=== PATIENT | male | born 1960 | race Caucasian/White ===

== ENCOUNTER 2021-09-13 13:58 | Inpatient (IN) | payer MEDICARE, MEDICAID ==
[2021-09-13] VITALS (9 sets, daily range): BP systolic 95–133; BP diastolic 59–90
[~2021-09-13] VITALS: Ht 172.7 cm; Wt 84.2 kg
[2021-09-13] MEDS ORDERED: MAALOX 30 ML SUSP *UDC PO PRN (17:30)
[2021-09-13] MEDS ORDERED: MOM 30ML SUSPENSION UDC PO PRN (17:30)
[2021-09-13] MEDS ORDERED: NYSTATIN 100,000 UNITS/GM TOPICAL PWD 15 GM TOP PRN (17:35)
[2021-09-13] MEDS ORDERED: FUROSEMIDE 40MG/4ML VIAL (J1940) IV SCH (17:55)
[2021-09-13] MEDS ORDERED: METOPROLOL 5 MG/5 ML VIAL IV STA (17:59)
[2021-09-13] MEDS: METOPROLOL TART 50 MG TAB PO SCH (18:00)
[2021-09-13] MEDS ORDERED: NICOTINE 14 MG/24 HR TRANSDERMAL TD PRN (18:15)
--- NOTE | 2021-09-13 18:17 | REP ---
INDICATION: SOB COMPARISON: None. TECHNIQUE: Portable AP view of the chest FINDINGS: Mediastinum and cardiac silhouette are relatively normal for portable technique. Lung mendez demonstrate chronic appearing changes. No prior examinations are available for comparison. Superimposed lower lobe opacities (right greater than left) raise the possibility of acute infiltrate/atelectasis. No effusion. No pneumothorax. Skeletal structures intact. IMPRESSION: Cannot exclude basilar opacity/atelectasis. <Electronically signed by Chase Alexandre > 09/13/21 2006
--- NOTE | 2021-09-13 18:24 | HPEPDOC ---
[facility] Medical History & Physical Date of Admission Sep 13, 2021 Date of Service: Sep 13, 2021 History and Physical Chief complaint: Who is transferred from [facility] for A. fib and hyponatremia History of present illness: Patient is a 60-year-old male with a PMHx of Hx of TBI, A fib (on Coumadin), Systolic CHF (EF: 40-45%), COPD, Hx of Alcoholism, Nicotine dependence, Schizophrenia who presented to [facility] as a transfer from [facility]. Patient had originally presented to [facility] for worsening shortness of breath over the last 5 days. Patient had come in at the insistence of his neighbor. Patient had reported worsening shortness of breath, worse with exertion, associated with a productive cough. Patient reports that he is unable to expectorate much sputum.. He is also reported worsening lower extremity swelling. Patient does wake up several times at night short of breath. He denies sleeping upright. Patient has not experience any fevers or chills. Patient denies any nausea, vomiting, abdominal pain. He does report constipation. His last bowel movement was reported 3 days ago. Denies any urinary discomfort. Patient reports a poor appetite, but may have experienced some weight loss of about 20 pounds. While at the [facility], patient was noted to be in A. fib with RVR with rates of 185. His lab work that revealed leukocytosis. Severe hyponatremia of 114, potassium of 5.6, creatinine of 1.13, BNP of 20,794, Troponin negative, and negative COVID19 PCR. While at [facility], patient was given IV fluid hydration. They had contacted [facility] for further assistance; reached out to our Hospitalist and nephrology team. Patient was transferred to [facility] for further medical management. Past Medical History: Hx of TBI A fib (on Coumadin) Systolic CHF (EF: 40-45%) COPD Hx of Alcoholism Nicotine dependence Schizophrenia Past Surgical History: Hernia surgery Appendectomy Allergies: See below Medications: See below Family History: - Reviewed and noncontributory Social History: - Denies the use of illicit drugs; patient was that he quit the use of alcohol a while back; patient is an active smoker - Denies recent travel or sick contacts - Patient reports that he is unvaccinated for COVID19 - Lives alone - Occupation; currently on disability Review of Systems: 10 point review of systems complete, all negative otherwise stated in HPI Physical exam: - Vitals: BP [133/90], HR [155], RR [18], Sat [95%NC2L], Temp [96.5F] - General: Lying in bed, Speaking in full sentences, AAOx3 - HEENT: NC, AT, PERRLA - CVS: Tachycardic, IrIr, +S1S2 - Lungs: Fair air entry bilaterally, bilateral crackles can be appreciated at lower lung bases. No wheezing or rhonchi - Abdomen: Soft, Non-tender. Mildly distended - Extremities: 2+ pitting edema bilaterally, No calf tenderness - Neuro: No focal motor or sensory deficit - Skin: L skin fold around thigh and scrotum with erythema / intertrigo Labs: See below Imaging: CT chest at [facility] 09/13: CHF pattern CT abdomen / pelvis at [facility] 09/13: Mild ascites / possible cirrhosis EKG: See below Assessment and Plan: Acute hypoxic respiratory failure - likely 2/2 multifactorial etiology - likely 2/2 A. fib with RVR and Acute and Chronic Systolic CHF - See below Acute on Chronic Systolic CHF (EF: 40-45%) - Physical reveals evidence of gross fluid overload - Currently patient is on 2 L of nasal cannula oxygen - BNP was elevated at [facility] - Strict ins/outs, daily weights, fluid restriction - Will check ECHO / CXR - Will give single dose of Furosemide and assess urine output A. fib with RVR - Patient denies any chest pain or palpitations - EKG does reveal evidence of atrial fibrillation - Troponin first set at [facility], was negative - INR at [facility] was noted to be elevated / supra-therapeutic - Will check EKG / ECHO / Troponin trend - Will start Telemetry - Will give dose of Metoprolol IV and c/w Metoprolol 50 [id number] at this time - Will resume Coumadin (pending INR level) Hyponatremia - likely 2/2 hypotonic hypervolemic etiology - likely 2/2 CHF - Sodium noted to be 114, at [facility] - He did however receive fluids at [facility] - Repeat sodium level pending - Will check Urine and Serum Osmolality / Urine electrolytes / UA - Will trend BNP [id number] - See above - Nephrology has been consulted; appreciate their input Urinary tract infection - UA noted to be abnormal at [facility] - Leukocytosis at [facility] - Will repeat UA w/ reflex culture / CBC / Lactic acid - Will start Ceftriaxone COPD - No evidence of exacerbation - Will repeat CXR - Will start Xopinex inhaled therapy Hx of Alcoholism - Patient reports he quit drinking a while ago - Will start Thiamine / Folate / MVI Nicotine dependence - Advised smoking cessation - Will provide nicotine patch Hx of TBI Schizophrenia DVT prophylaxis - Will c/w Full anticoagulation with Coumadin (Awaiting repeat INR) Code status: - Full code Disposition: - Pending clinical improvement - Anticipate minimal of to midnight stay Vital Signs Vital Signs Date Time Temp Pulse Resp B/P (MAP) Pulse Ox O2 Delivery O2 Flow Rate FiO2 09/13/21 18:09 156 133/90 Laboratory Data Labs 24H Laboratory Tests 2 09/13/21 17:50: 09/13/21 18:03: Bedside Glucose (Misc Panel) 212H CBC/BMP Microbiology Microbiology 09/13/21 Blood Culture, Received Pending VENITA DE LEON MD Sep 13, 2021 18:24
[2021-09-13 18:53] LABS: INR 3.85
[2021-09-13 18:53] LABS: FREE T4 1.35 NG/DL (0.76-1.46); MAGNESIUM LEVEL 2.2 MG/DL (1.8-2.4); THYROID STIMULATING HORMONE 1.36 uIU/ML (0.358-3.740)
[2021-09-13] MEDS ORDERED: SITA50TAB PO (18:54)
[2021-09-13] MEDS ORDERED: BEVE1AER INH (18:54)
[2021-09-13] MEDS ORDERED: METF10004 PO (18:54)
[2021-09-13] MEDS ORDERED: FARX1TAB5 PO (18:54)
[2021-09-13] MEDS ORDERED: PROAAER10 INH (18:54)
[2021-09-13] MEDS ORDERED: TREL1AER INH (18:54)
[2021-09-13] MEDS ORDERED: BENA25CA4 PO (18:54)
[2021-09-13] MEDS ORDERED: LASI20TA3 PO (18:54)
[2021-09-13] MEDS ORDERED: ATOR40TA75 PO (18:54)
[2021-09-13] MEDS ORDERED: RAMI1CAP21 PO (18:54)
[2021-09-13] MEDS ORDERED: META0.52 PO (18:54)
[2021-09-13] MEDS ORDERED: BENZ2TAB5 PO (18:54)
[2021-09-13] MEDS ORDERED: D31000TA2 PO (18:54)
[2021-09-13] MEDS ORDERED: POTA10TA17 PO (18:54)
[2021-09-13] MEDS ORDERED: WARF-23 PO (18:54)
[2021-09-13] MEDS ORDERED: METO1TAB32 PO (18:54)
[2021-09-13] MEDS ORDERED: DILT1CAP9 PO (18:54)
[2021-09-13] MEDS ORDERED: COMBAER6 INH (18:54)
[2021-09-13] MEDS ORDERED: INVE156I IM (18:54)
[2021-09-13] MEDS ORDERED: COMMENTS (18:56)
[2021-09-13 18:57] LABS: OSMOLALITY URINE 659 MOSM/KG (50-1400)
[2021-09-13 18:59] LABS: CK-MB VALUE MASS 23.6 NG/ML (<3.6); MB/CK RELATIVE INDEX 3.56 (< OR =4)
[2021-09-13] MEDS ORDERED: HOME MED LIST COMPLETE! XX SCH (19:00)
[2021-09-13] MEDS: MULTIVITAMINS/MINERALS THERAP 1 TAB PO SCH (19:00)
[2021-09-13] MEDS: FOLIC ACID 1 MG TAB PO SCH (19:00)
[2021-09-13] MEDS ORDERED: FUROSEMIDE 40MG/4ML VIAL (J1940) IV ONE (19:00)
[2021-09-13] MEDS: THIAMINE 100 MG TAB PO SCH (19:00)
[2021-09-13 19:03] LABS: CHLORIDE,RANDOM URINE < 10 MEQ/L; POTASSIUM RANDOM URINE 48.2 MEQ/L; SODIUM,RANDOM URINE < 10 MEQ/L
[2021-09-13 19:03] LABS: ALBUMIN 3.4 GM/DL (3.2-5.2); ALT/SGPT 104 U/L (12-78); BILIRUBIN,TOTAL 1.6 MG/DL (0.2-1.0); BLOOD UREA NITROGEN 29 MG/DL (7-18); CALCIUM LEVEL 9.4 MG/DL (8.5-10.1); CARBON DIOXIDE LEVEL 27 MEQ/L (21-32); CHLORIDE LEVEL 82 MEQ/L (98-107); CREATININE FOR GFR 0.92 MG/DL (0.70-1.30); GLOMERULAR FILTRATION RATE > 60.0 (>56); GLUCOSE, FASTING 194 MG/DL (70-100); POTASSIUM SERUM 5.8 MEQ/L (3.5-5.1); SODIUM LEVEL 117 MEQ/L (136-145); TOTAL PROTEIN 6.7 GM/DL (6.4-8.2)
[2021-09-13 19:19] LABS: HEMATOCRIT 43.5 % (42.0-52.0); HEMOGLOBIN 14.5 g/dl (13.5-17.5); MEAN CORPUSCULAR HEMOGLOBIN 27.8 pg (27.0-33.0); MEAN CORPUSCULAR HGB CONC 33.3 g/dl (32.0-36.5); MEAN CORPUSCULAR VOLUME 83.5 fl (80.0-96.0); PLATELET COUNT, AUTOMATED 284 10^3/uL (150-450); RED BLOOD COUNT 5.21 10^6/uL (4.30-6.10); WHITE BLOOD COUNT 21.5 10^3/uL (4.0-10.0)
[2021-09-13] MEDS ORDERED: GLUCOSE 4GM CHEW TABLET PO PRN (19:25)
[2021-09-13] MEDS ORDERED: DEXTROSE 50% 50 ML SYRINGE IV PRN (19:25)
[2021-09-13] MEDS ORDERED: GLUCAGON INJ 1MG VIAL SC PRN (19:25)
[2021-09-13] MEDS ORDERED: DIGOXIN INJ 0.5 MG/2 ML AMP (J1160) IV STA (19:47)
[2021-09-13] MEDS: LEVALBUTEROL 1.25 MG/0.5 ML CONCENTRATE NEB INH SCH (19:58)
[2021-09-13] MEDS: ADVAIR HFA 230/21MCG INHALER INH SCH (19:58)
[2021-09-13] MEDS: METOPROLOL 5 MG/5 ML VIAL IV SCH ×3 (20:10→20:20)
[2021-09-13] MEDS: DOXYCYCLINE HYCLATE 100 MG in D5W MINI-BAG PLUS 100 ML IV SCH (21:06)
[2021-09-13] MEDS: HumaLOG INSULIN (NovoLOG) PER UNIT SC SCH (21:16)
[2021-09-13] MEDS: DOCUSATE SODIUM 100MG CAPSULE PO SCH (21:18)
[2021-09-13] MEDS: BENZTROPINE 2 MG TAB PO SCH (21:19)
[2021-09-14] VITALS (14 sets, daily range): BP systolic 99–136; BP diastolic 53–98
[2021-09-14] MEDS: METOPROLOL TART 50 MG TAB PO SCH ×4 (00:10→17:55)
[2021-09-14] MEDS ORDERED: DIGOXIN INJ 0.5 MG/2 ML AMP (J1160) IV ONE (03:00)
--- NOTE | 2021-09-14 06:11 | CR ---
CONSULTATION DATE: 09/13/2021 REASON FOR CONSULTATION: Hyponatremia. HISTORY OF PRESENT ILLNESS: Mr. Soriano is a 60-year-old gentleman who is transferred to [facility] from [facility]. He has known history of systolic congestive heart failure with ejection fraction of 40 to 45%, chronic obstructive pulmonary disease (COPD), history of alcoholism, nicotine dependence, history of schizophrenia and atrial fibrillation. He presented to [facility] today with shortness of breath and was found to have rapid atrial fibrillation. He was also noticed to have sodium level of 114 due to which he was transferred to [facility]. The case was discussed with the hospitalist on the phone and the patient is seen this evening in ICU. The patient apparently had cough and shortness of breath, but no hemoptysis, fevers or chills reported. PAST MEDICAL HISTORY: 1. History of chronic atrial fibrillation. 2. Systolic congestive heart failure. 3. Chronic obstructive pulmonary disease. 4. History of alcoholism. 5. History of schizophrenia. 6. History of nicotine dependence PAST SURGICAL HISTORY: Significant for appendectomy and hernia surgery. MEDICATIONS: His home medications include albuterol inhaler, atorvastatin, benztropine, vitamin D 1000 units daily, Farxiga 5 mg daily, diltiazem 360 mg daily, diphenhydramine 25 mg as needed for sleep, Trelegy one puff daily, furosemide 20 mg twice a day, metformin 1000 mg twice a day, Combivent inhaler three times a day, Invega Sustenna 156 mg intramuscular once a month, potassium chloride 10 mEq twice a day, ramipril 1.25 mg daily, Januvia 50 mg daily, coumadin 5 mg daily. ALLERGIES: No known drug allergies. PERSONAL AND SOCIAL HISTORY: The patient is a poor historian. He does have a history of alcohol use and no other recreational drugs. He has a history of chronic obstructive pulmonary disease (COPD). FAMILY HISTORY: Noncontributory. REVIEW OF SYSTEMS: No fever or chills reported. He has progressive shortness of breath for four to five days. Ears, nose and throat are unremarkable. He is a poor historian with difficulty to understand his speech. Cardiovascular is significant for atrial fibrillation. He had rapid ventricular rate on arrival to [facility]. He has been given a dose of digoxin and metoprolol and heart rate is now in the 90s. He denies any chest pain. Respiratory system significant for shortness of breath, which has worsened over the last four to five days. Gastrointestinal (GI) system negative for vomiting or diarrhea. Genitourinary () system is significant for urinary tract infection (UTI). He currently has a Wright catheter in place. Endocrine system is significant for type 2 diabetes and no history of thyroid problems. Hematological system significant for chronic anticoagulation due to atrial fibrillation. Musculoskeletal system is negative for any significant arthritis. He does have some leg edema. Psychosocial system is significant for schizophrenia. He has history of traumatic brain injury in the past. Skin is negative for rash or ulcers. PHYSICAL EXAMINATION: The patient is laying in the bed with the head elevated at about 60 degrees. Temperature 98 degrees Fahrenheit, heart rate was in the 150s, but now at the time of my visit his heart rate is in the 90s. Blood pressure is about 90/50 mmHg and oxygen saturation 96% on 2 liters oxygen. His head is atraumatic at present. Pupils equal and reactive to light and sclerae anicteric. Neck is supple and jugular venous distention (JVD) about 8 to 9 cm above the sternal angle. There is no thyroid enlargement. Heart sounds are irregular and lungs have diminished breath sounds and bilateral rales at lower 1/3. Abdomen soft and nontender and bowel sounds are normal. Extremities without any cyanosis or clubbing. He has edema on his legs. Neurologically, he is awake. Speech is not clear and difficult to understand. LABORATORY DATA: WBC count is 21.5, hemoglobin 14.5 and hematocrit 43.5. Platelets 284. INR was 3.85. Sodium was [address] [facility] and it is now 117 here. Potassium is 5.8, Co2 27, BUN 29 and creatinine 0.92, glucose 192 and calcium 9.4. Total bilirubin 1.6, AST 83, ALT 104, alkaline phosphatase 93. Total protein 6.7 and albumin 3.4. Urinalysis showed 2+ protein, 2+ glucose, 3+ blood and 3+ leukocyte esterase. Too numerous to count RBCs and 145 WBCs. Urine osmolarity is 659, urine sodium less than 10 and potassium 48. He had a chest x-ray done here at [facility], which showed some basilar opacities and atelectasis. No significant cardiomegaly noted. PROBLEMS: 1. Hyponatremia, most likely this is multifactorial. The patient has a history of alcohol use. He was also on a diuretic at home and clinically his volume is overloaded. His atrial fibrillation could also be contributing as he is in congestive heart failure. At present, he should be placed on fluid restriction of 1500 mL per day. One dose of Lasix 40 mg has already been given and I have recommended to hold off any further diuretic use through the night. 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 2. Hyperkalemia, most likely related to medications as he was taking potassium supplement and may have high potassium intake in his diet. At present, his potassium supplement has already been stopped and diuretic is being given due to congestive heart failure, which is likely to correct his hyperkalemia and no other intervention would be needed. 3. Congestive heart failure. The patient is clinically decompensated with elevated neck veins, peripheral edema and pulmonary rales. He will need to be diuresed; however, I recommend to gently diurese him due to risk for rapid correction of his hyponatremia. Will need to monitor his electrolytes closely. 4. Urinary tract infection (UTI). The patient is already being treated with ceftriaxone. He has also been given doxycycline in view of his history of cough. Thank you for involving me in the care of Mr. Soriano. I will follow him along with you.
[2021-09-14] MEDS: HumaLOG INSULIN (NovoLOG) PER UNIT SC SCH ×4 (07:30→20:48)
[2021-09-14 07:46] LABS: BASO % 0.1 % (0.0-1.0); HEMATOCRIT 41.4 % (42.0-52.0); HEMOGLOBIN 13.8 g/dl (13.5-17.5); LYMPH # 1.3 10^3/uL (1.5-5.0); LYMPH % 6.1 % (24.0-44.0); MEAN CORPUSCULAR HEMOGLOBIN 27.9 pg (27.0-33.0); MEAN CORPUSCULAR HGB CONC 33.3 g/dl (32.0-36.5); MEAN CORPUSCULAR VOLUME 83.6 fl (80.0-96.0); MONO # 1.3 10^3/uL (0.0-0.8); MONO % 5.8 % (2.0-8.0); NEUTROPHILS # 18.9 10^3/uL (1.5-8.5); NEUTROPHILS % 86.9 % (36.0-66.0); PLATELET COUNT, AUTOMATED 243 10^3/uL (150-450); RED BLOOD COUNT 4.95 10^6/uL (4.30-6.10); WHITE BLOOD COUNT 21.7 10^3/uL (4.0-10.0)
[2021-09-14] MEDS: LEVALBUTEROL 1.25 MG/0.5 ML CONCENTRATE NEB INH SCH ×4 (08:00→20:00)
[2021-09-14 08:12] LABS: ALBUMIN 3.2 GM/DL (3.2-5.2); ALT/SGPT 263 U/L (12-78); BILIRUBIN,TOTAL 1.5 MG/DL (0.2-1.0); BLOOD UREA NITROGEN 43 MG/DL (7-18); CALCIUM LEVEL 9.2 MG/DL (8.5-10.1); CARBON DIOXIDE LEVEL 23 MEQ/L (21-32); CHLORIDE LEVEL 80 MEQ/L (98-107); CREATININE FOR GFR 1.17 MG/DL (0.70-1.30); GLOMERULAR FILTRATION RATE > 60.0 (>56); GLUCOSE, FASTING 127 MG/DL (70-100); MAGNESIUM LEVEL 2.5 MG/DL (1.8-2.4); SODIUM LEVEL 114 MEQ/L (136-145); TOTAL PROTEIN 6.2 GM/DL (6.4-8.2)
[2021-09-14 08:13] LABS: POTASSIUM SERUM 6.1 MEQ/L (3.5-5.1)
[2021-09-14 08:18] LABS: CK-MB VALUE MASS 24.2 NG/ML (<3.6); MB/CK RELATIVE INDEX 2.73 (< OR =4)
[2021-09-14] MEDS: FOLIC ACID 1 MG TAB PO SCH (09:00)
[2021-09-14] MEDS: MULTIVITAMINS/MINERALS THERAP 1 TAB PO SCH (09:00)
[2021-09-14] MEDS: VITAMIN D 1,000 INTERNATIONAL UNITS TABLET PO SCH (09:00)
[2021-09-14] MEDS: THIAMINE 100 MG TAB PO SCH (09:00)
[2021-09-14] MEDS: DOCUSATE SODIUM 100MG CAPSULE PO SCH ×2 (09:00→20:35)
[2021-09-14] MEDS: BENZTROPINE 2 MG TAB PO SCH ×2 (09:00→20:35)
[2021-09-14] MEDS: ATORVASTATIN 20 MG TAB PO SCH (09:00)
[2021-09-14] MEDS ORDERED: FUROSEMIDE 100MG/10ML VIAL (J1940) IV ONE (09:30)
[2021-09-14] MEDS: ADVAIR HFA 230/21MCG INHALER INH SCH ×3 (09:56→20:00)
[2021-09-14] MEDS ORDERED: SOD POLYSTYRENE SULFONATE SUSP 15 GM/60 ML UD PO ONE (10:00)
[2021-09-14] MEDS ORDERED: SOD POLYSTYRENE SULFONATE SUSP 30 GM/120 ML ENEMA PR ONE (10:00)
[2021-09-14] MEDS: DOXYCYCLINE HYCLATE 100 MG in D5W MINI-BAG PLUS 100 ML IV SCH ×2 (10:06→21:56)
[2021-09-14 10:12] LABS: CORTISOL BASELINE 35.9 UG/DL (4.3-22.4)
[2021-09-14 10:13] LABS: TOTAL T3 44.7 NG/DL (60.0-181.0)
[2021-09-14 11:52] LABS: INR 3.08; PROTHROMBIN TIME 32.1 SECONDS (12.7-14.5)
[2021-09-14 12:09] LABS: ALBUMIN 3.1 GM/DL (3.2-5.2); BILIRUBIN,DIRECT 0.9 MG/DL (0.0-0.2); BILIRUBIN,TOTAL 1.4 MG/DL (0.2-1.0); TOTAL PROTEIN 5.8 GM/DL (6.4-8.2)
[2021-09-14 12:13] LABS: BLOOD UREA NITROGEN 46 MG/DL (7-18); CALCIUM LEVEL 9.1 MG/DL (8.5-10.1); CARBON DIOXIDE LEVEL 29 MEQ/L (21-32); CHLORIDE LEVEL 79 MEQ/L (98-107); CREATININE FOR GFR 1.15 MG/DL (0.70-1.30); GLOMERULAR FILTRATION RATE > 60.0 (>56); GLUCOSE, FASTING 134 MG/DL (70-100); SODIUM LEVEL 114 MEQ/L (136-145)
--- NOTE | 2021-09-14 12:24 | IPNPDOC ---
Text Note Date of Service The patient was seen on 09/14/21. NOTE Subjective HPI: Patient initially presented to [facility] with a 5 day hx of worsening SOB, upon the insistence of a neighbor. Patient had noted a worsening SOB on exertion w/ an associated productive cough but is unable to expectorate any appreciable amount of sputum. Patient had also noted LE swelling and that he often wakes up frequently during the night w/ SOB. Patient denies upright sleeping or chills/fever at initial px. At [facility], patient was noted to be in afib w/ RVR with rate of 185. Lab values showed leukocytosis, hyponatremia (severe at 114), hyperkalemia, and elevated BNP of 20,794 (recent baseline approximately 15,000). Patient was given IV fluid at [facility]. [facility] then contacted [facility] for higher level of care via hospitalist and nephrology teams and was subsequently transferred to [facility]. At time of exam 09/14/21, patient appeared to be in some state of AMS. He was arousable from sleep but non verbal and non responsive to questions, was unable to follow instructions physically as well. Due to this the subjective part of the exam was unable to be acquired, as even 2 hours after patient was seen again and mental orientation was unchanged. Sitters present in room reported that he has been like this since 7 AM and that he was coughing quite a bit. ROS: - Was unobtainable due to patients unresponsiveness. Objective: General appearance: Patient was lying comfortable in bed, very somnolent appears older than stated age, and was in no acute distress. HENT: NC/AT, EOMI, PERRLA, scleral icterus was present, mucous membranes are moist. Cardiac: Regular rate, irregular rythm, patient is still in afib. Heart sounds distant, no murmurs or gallops appreciated. Respiratory: CTAB with no rales, rhonchi., or wheezing. Difficult to accurately auscultate as patient wouldn't take deep breaths. Abdominal: Reducible umbilical hernia, soft, NT, mild distention. Extremities: 2+ pitting edema bilaterally, right leg ends at knee, left leg ends mid tibial. Imaging: #. 09/13 CXR: "IMPRESSION: Cannot exclude basilar opacity/atelectasis." Assessment: Jean-Paul Soriano is a 60 year old male with a notable HO afib, systolic CHF, Hx of alcoholism, nicotine use disorder, COPD, and Schizophrenia who presented to [facility] ED as a [place] [facility] transfer and was found to have afib w/RVR, severe hyponatremia, hyperkalemia, and leukocytosis concerning for acute hypoxic respiratory failure likely 2/2 afib w/RVR and CHF exacerbation. Plan: #. Acute on Chronic Systolic CHF - Clinical signs of fluid overload as noted above in exam section - 3LNC oxygen supplementation; baseline O2 requirements unable to be ascertained d/t pt's encephalopathy - BNP 18,581 on 09/13 - Placed on strict I&O's with fluid restriction and daily weights - Patient appears to be retaining fluid - Patient weight increased 2 kg since yesterday - CXR results as above, ECHO pending - Second dose of furosemide administered 09/14 80 mg with a (+) fluid balance #. Afib w/RVR, currently rate controlled - EKG shows afib evidence - negative troponin at [facility], HS Troponin 09/14 WNL -rate controlled s/p IV Dig x1; c/w 50 mg PO lopressor q6h - INR supratherapeutic at [facility] -repeat drawn upon admission remained supratherapeutic (3.5); subsequent repeat has been ordered -At this point, will hold home Coumadin for another day and reassess based on repeat INR result - ECHO pending, CXR as above, troponins trending - c/w tele #. Hypotonic hypervolemic hyponatremia, severe- likely dilutional 2/2 fluid overload due to CHF - Sodium remains at 114 09/14 - Repeat sodium levels - Urine + Serum Osmolality: 659 and 254 respectively , Urine electrolytes returned WNL, UA suggestive of UTI -Sarah < 10; possible etiologies cirrhosis vs HF - BNP ordered to trend q4 hours but was not done - Nephrology was consulted w/ Dr. Kilgore and their input is appreciated #. UTI - UA at [facility] suggestive of abnormality, [facility] - Patient still has leukocytosis in the 's - LA WNL - Repeat UA 09/13 suggests UTI - urine, and blood x2 cultures pending - Patient started on Ceftriaxone as well as Doxycycline for potential CAP #. Presumed CAP - Patient previously reported productive cough, confirmed today by sitters - Patient oxygen requirement increased, was saturating well at 2LNC yesterday and is now on 3LNC - CXR findings of atelectasis and bilateral opacities suggestive of pneumonia - c/w doxycycline #. Acute metabolic encephalopy, likely 2/2 to hyponatremia, possibly 2/2 infection - Patient mentation severely decreased compared to yesterday, largely unresponsive and non verbal - Noted yesterday to be talkative and was combative overnight - Has been severely hyponatremic since presentation to [facility] - Ammonia level ordered to r/o hepatic source - c/w diuresis to improve hyponatremia #. Transaminitis, likely 2/2 to hepatic congestion due to volume overload and cirrhotic parenchyma - Elevated AST and ALT compared to normal limits on presentation - Liver US suggestive of cirrhosis - Patient is currently in a state of volume overload - Hx of alcoholism - c/w diuresis #. COPD - No exacerbation evidence - repeat CXR suggestive of CAP - c/w Xopinex #. Hx of alcoholism - patient notes he quit some time back - c/w thiamin, folate and MVI #. Nicotine dependence - Smoking cessation advised #. Hx of TBI #. Schizophrenia DVT prophylaxis: c/w full anticoagulation w/ Coumadin onc INR returns below 3, currently 3.08 09/14 CODE STATUS: Full code Disposition: Pending clinical improvement and anticipate at least another midnight stay VS,Ama, I+O VSAma I+O Laboratory Tests 09/13/21 17:50 09/13/21 19:10 09/14/21 07:30 Vital Signs Date Time Temp Pulse Resp B/P (MAP) Pulse Ox O2 Delivery O2 Flow Rate FiO2 09/14/21 08:00 97.4 79 16 123/79 (94) 97 Nasal Cannula 2.0 I&O- Last 24 Hours up to 6 AM 09/14/21 05:59 Intake Total 1920 ml Output Total 1250 ml Balance 670 ml GME ATTESTATION GME ATTESTATION My faculty preceptor for this patient encounter was physically present during the encounter and was fully available. All aspects of the patient interview, examination, medical decision making process, and medical care plan development were reviewed and approved by the faculty preceptor. The faculty preceptor is aware and concurs with the plan as stated in the body of this note and will attest to such by his/her cosignature. ATTENDING NOTE I, Colby Shah, have independently examined this patient and performed my own physical exam, and verified the medical students physical exam. The document ation (including HPI and medical decision making) above has been verified and edited where necessary with the student. I have discussed in detail with the student the findings and plan of treatment as documented by the student and edited their note. I will continue to follow the patient during this hospital stay. VIV MARTÍNEZ OMS-3 Sep 14, 2021 12:24 COLBY SHAH MD Sep 14, 2021 15:27 JADEN SIMENTAL D.O. Sep 14, 2021 18:14
[2021-09-14] MEDS: cefTRIAXone SOD 1 GM in D5W MINI-BAG PLUS 50 ML IV SCH (14:22)
[2021-09-14] MEDS: SODIUM CHLORIDE 1 GM TAB PO SCH ×2 (14:23→20:34)
[2021-09-14 16:07] LABS: BLOOD UREA NITROGEN 48 MG/DL (7-18); CALCIUM LEVEL 8.7 MG/DL (8.5-10.1); CARBON DIOXIDE LEVEL 30 MEQ/L (21-32); CHLORIDE LEVEL 78 MEQ/L (98-107); CREATININE FOR GFR 1.16 MG/DL (0.70-1.30); GLOMERULAR FILTRATION RATE > 60.0 (>56); GLUCOSE, FASTING 136 MG/DL (70-100); POTASSIUM SERUM 4.8 MEQ/L (3.5-5.1); SODIUM LEVEL 118 MEQ/L (136-145)
--- NOTE | 2021-09-14 19:36 | IPN ---
NEPHROLOGY PROGRESS NOTE DATE: 09/14/2021 SUBJECTIVE: Mr. Soriano was seen this morning at his bedside. He was admitted last evening with atrial fibrillation and rapid ventricular rate. He was found to be in congestive heart failure and also had severe hyponatremia with sodium level of 114. He was given Lasix 40 mg intravenously but he did not respond much. This morning he is still minimally responsive. Nursing staff reports no vomiting or diarrhea. The patient is unable to provide much information by himself. He has received IV antibiotics, Ceftriaxone for possible urinary tract infection and pulmonary infiltrates. His heart rate has slowed down with a ventricular rate now down to about 90 per minute. OBJECTIVE: PHYSICAL EXAMINATION: VITAL SIGNS: Temperature 97.4 degrees Fahrenheit, heart rate 90 per minute, respiratory rate 16 per minute, blood pressure 123/79 mm of mercury and oxygen saturation is 97% on 2 liters oxygen. INTAKE AND OUTPUT: Records from the last 12 hours show a total intake of 1,440 and output 975 mL. His head is atraumatic. NECK: Supple and JVD is about 9 cm above the sternal angle. HEART: Sounds are irregular. LUNGS: Bilateral basilar rales. ABDOMEN: Soft and nontender. Bowel sounds are normal. EXTREMITIES: Without cyanosis or clubbing. He does have peripheral edema on the legs. NEUROLOGICAL: He remains minimally communicative. LABORATORY STUDIES: Today's labs show a WBC count of 21.7, hemoglobin 13.8 and hematocrit 41.4. Sodium 114, potassium 6.1, chloride 80, CO2 23, BUN 43, and creatinine 1.17. Glucose 127 and calcium 9.2. Total bilirubin 1.5, AST 257 and ALT 263. Total protein 6.3 and albumin 3.2. PROBLEMS: 1. Hyponatremia the patient's sodium level remains unchanged. He did not respond very well to Lasix. He is hypervolemic so I am not considering giving him hypertonic saline. We will give him a dose of Lasix 80 mg intravenously now and monitor response and urine output over the next 12 hours. I will consider another dose of Lasix later this evening if needed. His sodium level is being repleted every 4 hours and if his sodium level does not improve, then I will consider adding oral sodium chloride tablets if the patient is able to swallow. 2. Congestive heart failure most likely this is related to rapid atrial fibrillation. His heart rate has now improved. I am more optimistic that he is going to respond to intravenous Lasix 80 mg Lasix is being given now and we will monitor his urine output for the next 12 hours. I do not want to give him higher doses of diuretic due to the risk for rapid correction of his hyponatremia. 3. Atrial fibrillation with rapid ventricular rate his ventricular rate has improved and at present his heart rate is in the 80's to 90. He did receive Digoxin last evening along with some intravenous Metoprolol. At present the patient's heart rate is controlled so we will continue to monitor closely. 4. Hyperkalemia his potassium level remains elevated and likely to improve with the diuresis; 80 mg Lasix is being given and electrolytes are being repleted every 4 hours. I will hold off on Kayexalate at present.
[2021-09-14 20:00] LABS: BLOOD UREA NITROGEN 49 MG/DL (7-18); CALCIUM LEVEL 8.8 MG/DL (8.5-10.1); CARBON DIOXIDE LEVEL 31 MEQ/L (21-32); CHLORIDE LEVEL 80 MEQ/L (98-107); GLOMERULAR FILTRATION RATE > 60.0 (>56); GLUCOSE, FASTING 121 MG/DL (70-100); POTASSIUM SERUM 5.1 MEQ/L (3.5-5.1); SODIUM LEVEL 120 MEQ/L (136-145)
[2021-09-14] MEDS ORDERED: diphenhydrAMINE 50MG/ML VIAL (J1200) IV STA (21:34)
[2021-09-15] VITALS (7 sets, daily range): BP systolic 103–131; BP diastolic 60–75
[2021-09-15 03:29] LABS: BLOOD UREA NITROGEN 43 MG/DL (7-18); CALCIUM LEVEL 8.3 MG/DL (8.5-10.1); CARBON DIOXIDE LEVEL 31 MEQ/L (21-32); CHLORIDE LEVEL 85 MEQ/L (98-107); CREATININE FOR GFR 1.15 MG/DL (0.70-1.30); GLOMERULAR FILTRATION RATE > 60.0 (>56); GLUCOSE, FASTING 110 MG/DL (70-100); POTASSIUM SERUM 4.7 MEQ/L (3.5-5.1); SODIUM LEVEL 122 MEQ/L (136-145)
[2021-09-15] MEDS: METOPROLOL TART 50 MG TAB PO SCH ×5 (05:42→23:40)
--- NOTE | 2021-09-15 06:51 | ECHO ---
ECHOCARDIOGRAM DATE OF PROCEDURE: 09/14/2021 Age: Gender: M Height: 172 cm Weight: 84 kg REFERRING PHYSICIAN: Dr. Cobly Shah INDICATION: Dyspnea. MEASUREMENTS: IVS: 0.6 LV: 5.8 LVPW: 1.0 LA: 3.6 Aorta: 3.6 FINDINGS: This study is of acceptable technical quality. Underlying atrial fibrillation with wide QRS complex. Left ventricle is mildly dilated. There is septal dyskinesis and global severe hypokinesis with overall estimated left ventricular ejection fraction (LVEF) 25% to 30%. Right ventricle is also dilated and hypokinetic. There is biatrial enlargement. Aortic valve has three cusps but it is sclerotic. Mobility of cusps is preserved. There are degenerative abnormalities of mitral valve with mitral annular calcifications but leaflets have normal mobility. Tricuspid and pulmonic valves were poorly visualized but grossly appear normal. Trivial pericardial effusion is noted. Inferior vena cava was poorly seen but based on limited views appears dilated. Aortic root is normal. Aortic arch and abdominal aorta were not well seen. Doppler interrogation of aortic valve reveals no stenosis or insufficiency. There is trace mitral and trace tricuspid insufficiency. Calculated pulmonary artery pressure is in the high 30s corresponding to mild pulmonary hypertension. Evaluation of diastolic function is inconclusive due to underlying atrial fibrillation. CONCLUSIONS: 1. Study is of acceptable technical quality. Underlying atrial fibrillation with wide QRS complex and controlled rate. 2. Mildly dilated left ventricle with septal dyskinesis and severe global hypokinesis and overall estimated left ventricular ejection fraction (LVEF) 25% to 30%. 3. Dilated hypokinetic right ventricle. 4. Severe biatrial enlargement. 5. Aortic sclerosis but no stenosis or insufficiency. 6. Trace mitral and tricuspid insufficiency. 7. Suggestive of elevated central venous pressure and at least mild pulmonary hypertension. 8. Trivial pericardial effusion.
[2021-09-15] MEDS: LEVALBUTEROL 1.25 MG/0.5 ML CONCENTRATE NEB INH SCH ×4 (07:15→20:00)
[2021-09-15] MEDS: ADVAIR HFA 230/21MCG INHALER INH SCH ×2 (07:15→20:00)
[2021-09-15] MEDS: HumaLOG INSULIN (NovoLOG) PER UNIT SC SCH ×4 (09:14→20:51)
[2021-09-15] MEDS: DOXYCYCLINE HYCLATE 100 MG in D5W MINI-BAG PLUS 100 ML IV SCH ×2 (09:15→20:48)
[2021-09-15] MEDS: DOCUSATE SODIUM 100MG CAPSULE PO SCH ×2 (09:26→20:48)
[2021-09-15] MEDS: ATORVASTATIN 20 MG TAB PO SCH (09:26)
[2021-09-15] MEDS: MULTIVITAMINS/MINERALS THERAP 1 TAB PO SCH (09:26)
[2021-09-15] MEDS: VITAMIN D 1,000 INTERNATIONAL UNITS TABLET PO SCH (09:26)
[2021-09-15] MEDS: THIAMINE 100 MG TAB PO SCH (09:26)
[2021-09-15] MEDS: FOLIC ACID 1 MG TAB PO SCH (09:26)
[2021-09-15] MEDS: SODIUM CHLORIDE 1 GM TAB PO SCH ×2 (10:54→17:39)
[2021-09-15] MEDS: BENZTROPINE 2 MG TAB PO SCH ×2 (10:55→20:47)
[2021-09-15] MEDS: ACETAMINOPHEN TAB 650MG DOSE (2X325MG) PO PRN (10:55)
[2021-09-15 10:59] LABS: BASO % 0.1 % (0.0-1.0); EOS # 0.1 10^3/uL (0.0-0.5); EOS % 0.6 % (0.0-3.0); HEMATOCRIT 40.8 % (42.0-52.0); HEMOGLOBIN 13.4 g/dl (13.5-17.5); LYMPH # 1.3 10^3/uL (1.5-5.0); LYMPH % 7.9 % (24.0-44.0); MEAN CORPUSCULAR HEMOGLOBIN 27.7 pg (27.0-33.0); MEAN CORPUSCULAR HGB CONC 32.8 g/dl (32.0-36.5); MEAN CORPUSCULAR VOLUME 84.3 fl (80.0-96.0); MONO # 1.2 10^3/uL (0.0-0.8); MONO % 7.4 % (2.0-8.0); NEUTROPHILS # 13.4 10^3/uL (1.5-8.5); NEUTROPHILS % 83.4 % (36.0-66.0); PLATELET COUNT, AUTOMATED 231 10^3/uL (150-450); RED BLOOD COUNT 4.84 10^6/uL (4.30-6.10); WHITE BLOOD COUNT 16.1 10^3/uL (4.0-10.0)
[2021-09-15] MEDS ORDERED: FUROSEMIDE 40MG/4ML VIAL (J1940) IV ONE (11:00)
[2021-09-15 11:09] LABS: INR 2.29; PROTHROMBIN TIME 25.6 SECONDS (12.7-14.5)
[2021-09-15 11:22] LABS: ALT/SGPT 210 U/L (12-78); BILIRUBIN,TOTAL 1.2 MG/DL (0.2-1.0); BLOOD UREA NITROGEN 34 MG/DL (7-18); CALCIUM LEVEL 9.2 MG/DL (8.5-10.1); CARBON DIOXIDE LEVEL 33 MEQ/L (21-32); CHLORIDE LEVEL 86 MEQ/L (98-107); CREATININE FOR GFR 0.96 MG/DL (0.70-1.30); GLOMERULAR FILTRATION RATE > 60.0 (>56); GLUCOSE, FASTING 117 MG/DL (70-100); MAGNESIUM LEVEL 2.2 MG/DL (1.8-2.4); POTASSIUM SERUM 4.5 MEQ/L (3.5-5.1); SODIUM LEVEL 125 MEQ/L (136-145); TOTAL PROTEIN 5.7 GM/DL (6.4-8.2)
--- NOTE | 2021-09-15 13:08 | IPN ---
NEPHROLOGY PROGRESS NOTE DATE: 09/15/2021 SUBJECTIVE: Mr. Soriano is seen this morning on his bedside. He is much more alert today and able to answer simple questions. Nursing staff reports that he has been able to take his medications and tolerate oral diet. He diuresed very well yesterday with intravenous Lasix 80 mg. his total urine output was almost 2.8 liters with a negative fluid balance of 1545 mL. PHYSICAL EXAMINATION: Temperature 97.2 degrees Fahrenheit, heart rate 90 per minute and respiratory rate 18 per minute. Blood pressure 117/75 mmHg and oxygen saturation 98% on 2 liters of oxygen. Head: Oral mucosa is somewhat dry. Neck: Neck veins are minimally distended now. Heart: Sounds are irregular in rhythm. Lungs: With bibasilar rales. Abdomen: Soft and nontender and bowel sounds are normal. Extremities: Without any cyanosis or clubbing. Lower extremity edema is improved, but still present. Neurologically: He is much more alert and able to talk though still his speech is difficult to understand. LABORATORY DATA: Today's labs show: WBC count 16.1, hemoglobin 13.4, hematocrit 40.8. Sodium is up to 122, potassium 4.7, chloride 85, CO2 31, BUN 43, creatinine 1.1, glucose 110, calcium 8.3. PROBLEMS/PLAN: 1. Hyponatremia: Sodium level is improving nicely and we will continue to monitor closely. Last night his oral sodium chloride tablet was held. This morning we will resume his oral sodium chloride tablet 1000 mg three times a day. He is still diuresing very well and I will give him only 40 mg Lasix today. 2. Congestive heart failure: Volume status improved significantly since yesterday. He still has mild hypovolemia. Lasix 40 mg intravenously 1 dose will be given. He will remain on an oral fluid restriction of 1500 mL per day. 3. Altered mentation: His mentation has improved since yesterday. We will continue to monitor and repeat his electrolytes. I am not sure what his baseline mentation is.
--- NOTE | 2021-09-15 13:48 | IPNPDOC ---
Text Note Date of Service The patient was seen on 09/15/21. NOTE Subjective: HPI: Patient initially presented to [facility] with a 5 day hx of worsening SOB, upon the insistence of a neighbor. Patient had noted a worsening SOB on exertion w/ an associated productive cough but is unable to expectorate any appreciable amount of sputum. Patient had also noted LE swelling and that he often wakes up frequently during the night w/ SOB. Patient denies upright sleeping or chills/fever at initial px. At [facility], patient was noted to be in afib w/ RVR with rate of 185. Lab values showed leukocytosis, hyponatremia (severe at 114), hyperkalemia, and elevated BNP of 20,794 (recent baseline approximately 15,000). Patient was given IV fluid at [facility]. [facility] then contacted [facility] for higher level of care via hospitalist and nephrology teams and was subsequently transferred to [facility]. Overnight 09/14-09/15 patient became acute agitated and was ripping out IV's, he was then given a single dose of IV benadryl for sedation and is now wearing protective mittens. At time of exam 09/15 patient seemed to have improved mentation compared to yesterday, we are unsure of his baseline mental status, however he was still altered to the point where an accurate ROS was able to be obtained. Patient knew his name and after much prodding was able to elicit his date, however was unable to tell us where he was. Patient also answered every questions the same with "Yeemilyyevlad". At first we took this as confirmation of asked questions but soon realized it was something he was saying in response to anything. Of note, patient would grab the sides of his head and shake every few minutes during the exam, something the sitters reaffirmed he'd been doing all day. ROS: Unable to be obtained due to patients altered mental status. Objective: General appearance: Patient was lying comfortable in bed, awake and muttering, he appears older than stated age and is in no acute distress. HENT: NC/AT, EOMI, PERRLA, scleral icterus more prominent than prior day, mucous membranes are moist. Cardiac: Irregular rate and irregular rhythm, patient remains in afib, uncontrolled. Heart sounds distant, no murmurs or gallops appreciated. Respiratory: End expiratory wheezing in the lower left lobe, with crackles appreciated in the right base. Difficult to accurately auscultate as patient not able to take deep breaths when asked. Abdominal: Reducible umbilical hernia, soft, NT, mild distention. No rebound tenderness or guarding. Extremities: 1+ pitting edema bilaterally, to the mid tibial area. Imaging: #. 09/13 Echo: "CONCLUSIONS: 1. Study is of acceptable technical quality. Underlying atrial fibrillation with wide QRS complex and controlled rate. 2. Mildly dilated left ventricle with septal dyskinesis and severe global hypokinesis and overall estimated left ventricular ejection fraction (LVEF) 25% to 30%. 3. Dilated hypokinetic right ventricle. 4. Severe biatrial enlargement. 5. Aortic sclerosis but no stenosis or insufficiency. 6. Trace mitral and tricuspid insufficiency. 7. Suggestive of elevated central venous pressure and at least mild pulmonary hypertension. 8. Trivial pericardial effusion. " Assessment: Jean-Paul Soriano is a 60 year old male with a notable HO afib, systolic CHF, Hx of alcoholism, nicotine use disorder, COPD, and Schizophrenia who presented to [facility] ED as a [facility] transfer and was found to have afib w/RVR, severe hyponatremia, hyperkalemia, and leukocytosis concerning for acute hypoxic respiratory failure likely 2/2 afib w/RVR and CHF exacerbation. Plan: #. Acute on Chronic Systolic CHF - Clinical signs of fluid overload as noted above in exam section - 2LNC oxygen supplementation; baseline O2 requirements unable to be ascertained d/t pt's encephalopathy - BNP 18,581 on 09/13 - Placed on strict I&O's with fluid restriction and daily weights - Negative fluid balance documented since last night, improvement compared to fluid retention documented prior - Echo results as above. - s/p 3rd dose IV Furosemide #. Afib w/RVR, currently rate controlled - EKG shows afib evidence - negative troponin at [facility], HS Troponin 09/14 WNL - rate controlled s/p IV Dig x1; c/w 50 mg PO lopressor q6h - INR therapetuic again, will restart patient on Coumadin - ECHO and CXR above, troponin trending - c/w telemetry #. Hypotonic hypervolemic hyponatremia, severe- likely dilutional 2/2 fluid overload due to CHF - Sodium of 125 on 09/15 - continue to repeat sodium levels - Urine + Serum Osmolality: 659 and 254 respectively on 09/13 , Urine electrolytes returned WNL, UA suggestive of UTI -Sarah < 10; possible etiologies cirrhosis vs HF - no new BNP levels - Nephrology was consulted w/ Dr. Kilgore and their input is appreciated - Dr. Kilgore ordered 1GM sodium tablets TID -Patient received diuresis of 40 mg IV Lasix this morning per Dr. Kilgore's orders. We appreciate Dr. Kilgore's help treating the patient. #. UTI - UA at [place] suggestive of abnormality, [facility] - Patient still has leukocytosis but is downtrending to 16.1 09/15 - LA WNL - Repeat UA 09/13 suggests UTI - Urine cultures grew staph aureus - Blood cultures x2 returned no growth after 24 hours - c/w Ceftriaxone, as well as Doxycycline for potential CAP #. Presumed CAP - Patient noted to be coughing productively - Patyient satting well on 2LNC again - CXR findings of atelectasis and bilateral opacities suggestive of pneumonia - c/w doxycycline - WBC count downtrending #. Acute metabolic encephalopy, likely 2/2 to hyponatremia, possibly 2/2 infection - Patient mentation improved to yesterday, no longer unresponsive/catatonic, is now verbal and active but very confused and disoriented - Yesterday patient was completely unresponsive, overnight was agitated - Has been severely hyponatremic since presentation to [facility] - Ammonia level WNL, can r/o hepatic encephalopathy - c/w diuresis and sodium repletion to improve hyponatremia #. Transaminitis, likely 2/2 to hepatic congestion due to volume overload and cirrhotic parenchyma - Elevated AST and ALT compared to normal limits on presentation - Liver US suggestive of cirrhosis - Patient is currently in a state of volume overload - Hx of alcoholism - c/w diuresis -Continue to monitor the patient's transaminases #. COPD - No exacerbation evidence - repeat CXR suggestive of CAP - c/w Xopinex #. Hx of alcoholism - patient notes he quit some time back - c/w thiamine, folate and MVI #. Nicotine dependence - Smoking cessation advised #. Hx of TBI #. Schizophrenia DVT prophylaxis: start full anticoagulation w/ Coumadin now that INR is therapeutic CODE STATUS: Full code Disposition: Pending clinical improvement and anticipate at least 1 more midnight stay VS,Fishbone, I+O VS, Fishbone, I+O Laboratory Tests 09/14/21 15:24 09/14/21 19:22 09/15/21 02:58 09/15/21 10:43 Vital Signs Date Time Temp Pulse Resp B/P (MAP) Pulse Ox O2 Delivery O2 Flow Rate FiO2 09/15/21 12:00 97.1 95 18 131/64 (86) 97 Nasal Cannula 2.0 I&O- Last 24 Hours up to 6 AM 09/15/21 06:00 Intake Total 270 ml Output Total 3450 ml Balance -3180 ml GME ATTESTATION GME ATTESTATION My faculty preceptor for this patient encounter was physically present during the encounter and was fully available. All aspects of the patient interview, examination, medical decision making process, and medical care plan development were reviewed and approved by the faculty preceptor. The faculty preceptor is aware and concurs with the plan as stated in the body of this note and will attest to such by his/her cosignature. ATTENDING NOTE I, Mike Ponce DO, have independently examined this patient and performed my own physical exam, as well as reviewed the documentation and edited where necessary. I have discussed in detail with the student the findings and plan of treatment as documented by the student and edited their note. I agree with their findings and treatment plan and have edited their documentation. I will continue to follow the patient during this hospital stay. VIV MARTÍNEZ OMS-3 Sep 15, 2021 13:48 MIKE PONCE DO Sep 15, 2021 17:31
[2021-09-15] MEDS: cefTRIAXone SOD 1 GM in D5W MINI-BAG PLUS 50 ML IV SCH (14:14)
[2021-09-15 14:56] LABS: BLOOD UREA NITROGEN 34 MG/DL (7-18); CALCIUM LEVEL 8.7 MG/DL (8.5-10.1); CARBON DIOXIDE LEVEL 36 MEQ/L (21-32); CHLORIDE LEVEL 87 MEQ/L (98-107); CREATININE FOR GFR 0.92 MG/DL (0.70-1.30); GLOMERULAR FILTRATION RATE > 60.0 (>56); GLUCOSE, FASTING 119 MG/DL (70-100); POTASSIUM SERUM 3.9 MEQ/L (3.5-5.1); SODIUM LEVEL 128 MEQ/L (136-145)
[2021-09-15] MEDS: WARFARIN SOD 5MG TAB PO SCH (17:00)
[2021-09-15 18:12] LABS: BASO % 0.1 % (0.0-1.0); EOS # 0.1 10^3/uL (0.0-0.5); EOS % 0.7 % (0.0-3.0); HEMATOCRIT 39.9 % (42.0-52.0); HEMOGLOBIN 13.2 g/dl (13.5-17.5); LYMPH # 1.4 10^3/uL (1.5-5.0); LYMPH % 10.6 % (24.0-44.0); MEAN CORPUSCULAR HEMOGLOBIN 28.1 pg (27.0-33.0); MEAN CORPUSCULAR HGB CONC 33.1 g/dl (32.0-36.5); MEAN CORPUSCULAR VOLUME 85.1 fl (80.0-96.0); MONO # 1.2 10^3/uL (0.0-0.8); MONO % 8.9 % (2.0-8.0); NEUTROPHILS # 10.7 10^3/uL (1.5-8.5); NEUTROPHILS % 79.2 % (36.0-66.0); PLATELET COUNT, AUTOMATED 243 10^3/uL (150-450); RED BLOOD COUNT 4.69 10^6/uL (4.30-6.10); WHITE BLOOD COUNT 13.5 10^3/uL (4.0-10.0)
[2021-09-15] MEDS ORDERED: D5W 1000ML IV ONE (18:25)
--- NOTE | 2021-09-15 18:32 | REPVR ---
PROCEDURE INFORMATION: Exam: CT Head Without Contrast Exam date and time: 09/15/2021 5:56 PM Age: 60 years old Clinical indication: Altered mental status/memory loss; Additional info: Acute worsening in mental status TECHNIQUE: Imaging protocol: Computed tomography of the head without contrast. Radiation optimization: All CT scans at this facility use at least one of these dose optimization techniques: automated exposure control; mA and/or kV adjustment per patient size (includes targeted exams where dose is matched to clinical indication); or iterative reconstruction. COMPARISON: No relevant prior studies available. FINDINGS: Brain: Mild diffuse parenchymal atrophy. Cerebral ventricles: Cavum septum pellucidum. Mild ventriculomegaly. Paranasal sinuses: Visualized sinuses are unremarkable. No fluid levels. Mastoid air cells: Visualized mastoid air cells are well aerated. Bones/joints: Unremarkable. No acute fracture. Soft tissues: Unremarkable. IMPRESSION: 1. Mild diffuse parenchymal atrophy. 2. No acute intracranial findings. Electronically signed by: Jimmy Camarena On 09/15/2021 18:32:00 PM
[2021-09-15 18:37] LABS: ALBUMIN 2.8 GM/DL (3.2-5.2); ALT/SGPT 186 U/L (12-78); BILIRUBIN,TOTAL 0.9 MG/DL (0.2-1.0); BLOOD UREA NITROGEN 33 MG/DL (7-18); CALCIUM LEVEL 8.6 MG/DL (8.5-10.1); CARBON DIOXIDE LEVEL 35 MEQ/L (21-32); CHLORIDE LEVEL 88 MEQ/L (98-107); CREATININE FOR GFR 0.88 MG/DL (0.70-1.30); GLOMERULAR FILTRATION RATE > 60.0 (>56); GLUCOSE, FASTING 116 MG/DL (70-100); MAGNESIUM LEVEL 2.4 MG/DL (1.8-2.4); SODIUM LEVEL 127 MEQ/L (136-145); TOTAL PROTEIN 5.4 GM/DL (6.4-8.2)
[2021-09-15 21:53] LABS: BLOOD UREA NITROGEN 32 MG/DL (7-18); CALCIUM LEVEL 8.1 MG/DL (8.5-10.1); CARBON DIOXIDE LEVEL 36 MEQ/L (21-32); CHLORIDE LEVEL 88 MEQ/L (98-107); CREATININE FOR GFR 0.83 MG/DL (0.70-1.30); GLOMERULAR FILTRATION RATE > 60.0 (>56); GLUCOSE, FASTING 135 MG/DL (70-100); POTASSIUM SERUM 3.8 MEQ/L (3.5-5.1); SODIUM LEVEL 126 MEQ/L (136-145)
[2021-09-16] VITALS (7 sets, daily range): BP systolic 100–122; BP diastolic 55–78
[2021-09-16] MEDS: METOPROLOL TART 50 MG TAB PO SCH ×3 (05:13→17:22)
[2021-09-16 05:59] LABS: BASO % 0.2 % (0.0-1.0); EOS # 0.2 10^3/uL (0.0-0.5); EOS % 1.2 % (0.0-3.0); HEMOGLOBIN 13.2 g/dl (13.5-17.5); LYMPH # 1.5 10^3/uL (1.5-5.0); LYMPH % 11.7 % (24.0-44.0); MEAN CORPUSCULAR HEMOGLOBIN 27.7 pg (27.0-33.0); MEAN CORPUSCULAR HGB CONC 32.2 g/dl (32.0-36.5); MONO # 1.2 10^3/uL (0.0-0.8); MONO % 9.2 % (2.0-8.0); NEUTROPHILS # 9.7 10^3/uL (1.5-8.5); NEUTROPHILS % 77.1 % (36.0-66.0); PLATELET COUNT, AUTOMATED 224 10^3/uL (150-450); RED BLOOD COUNT 4.77 10^6/uL (4.30-6.10); WHITE BLOOD COUNT 12.6 10^3/uL (4.0-10.0)
[2021-09-16 06:11] LABS: INR 1.91; PROTHROMBIN TIME 22.3 SECONDS (12.7-14.5)
[2021-09-16 06:33] LABS: ALBUMIN 2.6 GM/DL (3.2-5.2); ALT/SGPT 174 U/L (12-78); BILIRUBIN,TOTAL 1.2 MG/DL (0.2-1.0); BLOOD UREA NITROGEN 25 MG/DL (7-18); CALCIUM LEVEL 8.3 MG/DL (8.5-10.1); CARBON DIOXIDE LEVEL 35 MEQ/L (21-32); CHLORIDE LEVEL 89 MEQ/L (98-107); CREATININE FOR GFR 0.78 MG/DL (0.70-1.30); GLOMERULAR FILTRATION RATE > 60.0 (>56); GLUCOSE, FASTING 86 MG/DL (70-100); MAGNESIUM LEVEL 2.1 MG/DL (1.8-2.4); POTASSIUM SERUM 4.2 MEQ/L (3.5-5.1); SODIUM LEVEL 129 MEQ/L (136-145); TOTAL PROTEIN 5.2 GM/DL (6.4-8.2)
--- NOTE | 2021-09-16 07:08 | ECGEPIP ---
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
[2021-09-16] MEDS: HumaLOG INSULIN (NovoLOG) PER UNIT SC SCH ×4 (07:30→21:00)
--- NOTE | 2021-09-16 09:08 | IPNPDOC ---
Text Note Date of Service The patient was seen on 09/16/21. NOTE Subjective: HPI: Patient initially presented to [facility] with a 5 day hx of worsening SOB, upon the insistence of a neighbor. Patient had noted a worsening SOB on exertion w/ an associated productive cough but is unable to expectorate any appreciable amount of sputum. Patient had also noted LE swelling and that he often wakes up frequently during the night w/ SOB. Patient denies upright sleeping or chills/fever at initial px. At [facility], patient was noted to be in afib w/ RVR with rate of 185. Lab values showed leukocytosis, hyponatremia (severe at 114), hyperkalemia, and elevated BNP of 20,794 (recent baseline approximately 15,000). Patient was given IV fluid at [facility]. [facility] then contacted [facility] for higher level of care via hospitalist and nephrology teams and was subsequently transferred to [facility]. Today, 09/16, patient was alert and oriented to person, place and time, albeit still confused. This is an improvement from last night when I saw the patient who appeared to be completely catatonic and unresponsive. He was able to follow simple commands this morning and when asked his name/ date/location accurately answered all questions. He told us he feels much better and that his breathing seems to have improved. However, once we began asking about other symptoms he appeared to slip into a disoriented state and started answering every question with "Yeahyeahyeahyeah" as well as just saying this unprompted. ROS: Unable to be obtained due to patients mental status. Objective: Vitals: see below. General: Patient was slaying elevated in bed, somewhat somnolent, appears older than stated age, and is in no acute distress. HENT: NC/AT, EOMI, PERRLA, scleral icterus with conjunctival effusion noted. Cardiac: Irregular rate w/irregular rhythm, heart sounds distant. Respiratory: Inspiratory wheezing left lung base. No rales or rhonchi appreciated. Right lung CTA. Abdominal: Mildly distended w/ tenderness to palpation RUQ and LLQ. Reducible umbilical hernia. Well healed surgical scar above level of umbilicus. Liver palpable 2cm below ribs, mild hepatomegaly. Extremities: Clubbing of the fingertips. 1+ pitting edema to mid tibial region in right leg, trace in left leg. Neuro: CN 2-12 intact, no gross focal deficits. Psychiatric: Patient is still in altered state of mentation albeit improved from last night, unsure of baseline mental status. Was oritented to person, place and time. Assessment: Jean-Paul Soriano is a 60 year old male with a notable HO afib, systolic CHF, Hx of alcoholism, nicotine use disorder, COPD, and Schizophrenia who presented to [facility] ED as a [place] transfer and was found to have afib w/RVR, severe hyponatremia, hyperkalemia, and leukocytosis concerning for acute hypoxic respiratory failure likely 2/2 afib w/RVR and CHF exacerbation. Plan: #. Acute on Chronic Systolic CHF - Clinical signs of fluid overload as noted above in exam section, that appear to be resolving - 3LNC oxygen supplementation; baseline O2 requirements unable to be ascertained d/t pt's encephalopathy, increased since yesterday - BNP 18,581 on 09/13 - Placed on strict I&O's with fluid restriction and daily weights - Negative fluid balance documented since last night, improvement compared to fluid retention documented prior - s/p 3rd dose IV Furosemide, no 4th as of today09/16 as the patient appears less fluid overloaded today. #. Afib w/RVR, rate controlled on metoprolol - EKG shows afib evidence - negative troponin at [facility], Troponin 09/14 WNL - rate controlled s/p IV Dig x1; c/w 50 mg PO lopressor q6h - c/w Coumadin - Tropnin trending - c/w telemetry #. Hypotonic hypervolemic hyponatremia, severe- likely dilutional 2/2 fluid overload due to CHF - Sodium of 129 on 09/16 - continue to repeat sodium levels - Urine + Serum Osmolality: 659 and 254 respectively on 09/13 , Urine electrolytes returned WNL, UA suggestive of UTI -Sarah < 10; possible etiologies cirrhosis vs HF - Nephrology was consulted w/ Dr. Kilgore and their input is appreciated - Dr. Kilgore ordered 1GM sodium tablets TID, since discontinued due to concerns of rapid sodium correction - Nephrology believes patient is stable from a fluid/CHF standpoint at this time and as a result he will not be given Lasix. - We appreciate Dr. Magui's help treating the patient. #. UTI - UA at [place] suggestive of abnormality, [facility] - Patient still has leukocytosis but is downtrending to 12.6 09/16 - Repeat UA 09/13 suggests UTI - Urine cultures grew staph aureus - Blood cultures x2 returned no growth after 48 hours - c/w Ceftriaxone, as well as Doxycycline for potential CAP #. Presumed CAP - Patient noted to be coughing productively - Patient oxygen requirements increased to 3LNC - CXR findings of atelectasis and bilateral opacities suggestive of pneumonia - c/w doxycycline - WBC count downtrending #. Acute metabolic encephalopathy, likely 2/2 to hyponatremia, possibly 2/2 infection - Patient mentation improved to last evening no longer unresponsive/catatonic as he was when examined, still confused - Yesterday patient mentation had improved but deteriorated in the evening, now improved again - Has been severely hyponatremic since presentation to [facility], though this is resolving - holding diuresis and sodium repletion at this time due to resolving fluid/CHF instability #. Transaminitis, likely 2/2 to hepatic congestion due to volume overload and cirrhotic parenchyma, resolving - Elevated AST and ALT but downtrending - Liver US suggests of cirrhosis - Patient is currently in a state of volume overload - Hx of alcoholism - diuresis held in light of resolving fluid status - continue to monitor the patient's transaminases #. COPD - No exacerbation evidence - repeat CXR suggestive of CAP - c/w Xopinex #. Hx of alcoholism - patient notes he quit some time back - c/w thiamine, folate and MVI #. Nicotine dependence - Smoking cessation advised #. Hx of TBI #. Schizophrenia DVT prophylaxis: c/w Coumadin CODE STATUS: Full code Disposition: Pending clinical improvement, anticipate at least 1 more midnight stay VS,Fishbone, I+O VS, Fishbone, I+O Laboratory Tests 09/15/21 10:43 09/15/21 14:19 09/15/21 17:35 09/15/21 21:06 09/16/21 05:44 Vital Signs Date Time Temp Pulse Resp B/P (MAP) Pulse Ox O2 Delivery O2 Flow Rate FiO2 09/16/21 07:39 97.7 77 18 122/78 (93) 96 Nasal Cannula 3.0 I&O- Last 24 Hours up to 6 AM 09/16/21 06:00 Intake Total 1000 ml Output Total 3475 ml Balance -2475 ml GME ATTESTATION GME ATTESTATION My faculty preceptor for this patient encounter was physically present during the encounter and was fully available. All aspects of the patient interview, examination, medical decision making process, and medical care plan development were reviewed and approved by the faculty preceptor. The faculty preceptor is aware and concurs with the plan as stated in the body of this note and will attest to such by his/her cosignature. ATTENDING NOTE I, Mike Ponce DO, have independently examined this patient and performed my own physical exam, as well as reviewed the documentation and edited where necessary. I have discussed in detail with the resident / student the findings and plan of treatment as documented by the resident / student and edited their note. I agree with their findings and treatment plan and have edited their documentation. I will continue to follow the patient during this hospital stay. VIV MARTÍNEZ OMS-3 Sep 16, 2021 09:08 MIKE PONCE DO Sep 16, 2021 17:21
[2021-09-16] MEDS: MULTIVITAMINS/MINERALS THERAP 1 TAB PO SCH (09:49)
[2021-09-16] MEDS: BENZTROPINE 2 MG TAB PO SCH ×2 (09:49→21:13)
[2021-09-16] MEDS: VITAMIN D 1,000 INTERNATIONAL UNITS TABLET PO SCH (09:49)
[2021-09-16] MEDS: FOLIC ACID 1 MG TAB PO SCH (09:49)
[2021-09-16] MEDS: DOXYCYCLINE HYCLATE 100 MG in D5W MINI-BAG PLUS 100 ML IV SCH ×2 (09:49→21:13)
[2021-09-16] MEDS: ATORVASTATIN 20 MG TAB PO SCH (09:49)
[2021-09-16] MEDS: DOCUSATE SODIUM 100MG CAPSULE PO SCH ×2 (09:49→21:13)
[2021-09-16] MEDS: THIAMINE 100 MG TAB PO SCH (09:49)
[2021-09-16] MEDS: LEVALBUTEROL 1.25 MG/0.5 ML CONCENTRATE NEB INH SCH ×4 (10:44→20:00)
[2021-09-16] MEDS: ADVAIR HFA 230/21MCG INHALER INH SCH ×2 (10:44→20:14)
--- NOTE | 2021-09-16 11:50 | IPN ---
NEPHROLOGY PROGRESS NOTE DATE: 09/16/2021 SUBJECTIVE: Mr. Soriano is seen this morning on his bedside. He is awake and talking. He has a sitter in the room who reports that patient did eat some of his breakfast. Yesterday, his sodium level went up to 128 in the afternoon and he was given 500 mL of D5W and sodium level came down to 126. He diuresed very well with just one dose of 40 mg Lasix. PHYSICAL EXAMINATION: VITAL SIGNS: Temperature 97.7 degrees Fahrenheit, heart rate 78 per minute, respiratory rate 18 per minute, blood pressure 122/78 mmHg, oxygen saturation 96% on 2 liters oxygen. INTAKE AND OUTPUT: Intake and output records from yesterday show total intake 1000 and output 4125 mL. HEAD: Atraumatic. NECK: Supple and jugular venous distention (JVD) is not elevated. HEART SOUNDS: Irregular in rhythm. LUNGS: Bibasilar rales. ABDOMEN: Soft and nontender. Bowel sounds are normal. EXTREMITIES: Without any cyanosis or clubbing. Peripheral edema has improved. NEUROLOGIC: He is awake and able to answer questions. LABORATORY DATA: Today's labs show WBC count 12.6, hemoglobin 13.2, hematocrit 41, platelets 224. Sodium level up to 129 today, potassium 4.2, chloride 89, CO2 35, BUN 25, creatinine 0.78, glucose 86, calcium 8.3 PROBLEMS: 1. Hyponatremia. His sodium level is improving nicely. I do not feel that he had any neurological symptoms related to his hyponatremia or correction of it. He seems to be doing very well this morning. We are not going to give him any more diuretic today, as he has diuresed very well and volume status is now very well compensated. We have already stopped oral sodium chloride tablets. His electrolytes are being monitored. At this point, with sodium level 129, he is not at any risk for hyponatremia-associated symptoms. 2. Congestive heart failure. Volume status has improved significantly and he has diuresed very well yesterday with only 40 mg Lasix, one dose. No more diuretic needed today. 3. Atrial fibrillation. His ventricular rate is well controlled on current medications. He is now on Coumadin and metoprolol 50 mg every 6 hours.
[2021-09-16] MEDS: cefTRIAXone SOD 1 GM in D5W MINI-BAG PLUS 50 ML IV SCH (14:14)
[2021-09-16] MEDS: WARFARIN SOD 5MG TAB PO SCH (17:26)
[2021-09-17] VITALS: BP 104/65
[2021-09-17 04:00] VITALS: BP 125/68
[2021-09-17] MEDS: METOPROLOL TART 50 MG TAB PO SCH ×4 (06:06→17:27)
[2021-09-17 06:53] LABS: BASO % 0.2 % (0.0-1.0); EOS # 0.2 10^3/uL (0.0-0.5); EOS % 1.2 % (0.0-3.0); HEMATOCRIT 40.2 % (42.0-52.0); HEMOGLOBIN 12.9 g/dl (13.5-17.5); LYMPH # 1.4 10^3/uL (1.5-5.0); LYMPH % 10.5 % (24.0-44.0); MEAN CORPUSCULAR HEMOGLOBIN 27.6 pg (27.0-33.0); MEAN CORPUSCULAR HGB CONC 32.1 g/dl (32.0-36.5); MEAN CORPUSCULAR VOLUME 85.9 fl (80.0-96.0); MONO # 1.3 10^3/uL (0.0-0.8); MONO % 9.5 % (2.0-8.0); NEUTROPHILS # 10.2 10^3/uL (1.5-8.5); PLATELET COUNT, AUTOMATED 244 10^3/uL (150-450); RED BLOOD COUNT 4.68 10^6/uL (4.30-6.10); WHITE BLOOD COUNT 13.1 10^3/uL (4.0-10.0)
[2021-09-17 07:10] LABS: ALBUMIN 2.6 GM/DL (3.2-5.2); ALT/SGPT 137 U/L (12-78); BILIRUBIN,TOTAL 1.4 MG/DL (0.2-1.0); BLOOD UREA NITROGEN 16 MG/DL (7-18); CALCIUM LEVEL 8.4 MG/DL (8.5-10.1); CARBON DIOXIDE LEVEL 36 MEQ/L (21-32); CHLORIDE LEVEL 90 MEQ/L (98-107); CREATININE FOR GFR 0.68 MG/DL (0.70-1.30); GLOMERULAR FILTRATION RATE > 60.0 (>56); GLUCOSE, FASTING 89 MG/DL (70-100); MAGNESIUM LEVEL 2.1 MG/DL (1.8-2.4); POTASSIUM SERUM 4.2 MEQ/L (3.5-5.1); SODIUM LEVEL 130 MEQ/L (136-145); TOTAL PROTEIN 5.2 GM/DL (6.4-8.2)
[2021-09-17 07:11] LABS: INR 1.77
[2021-09-17] MEDS: HumaLOG INSULIN (NovoLOG) PER UNIT SC SCH ×4 (07:30→21:00)
[2021-09-17] MEDS: ADVAIR HFA 230/21MCG INHALER INH SCH ×2 (08:00→20:23)
--- NOTE | 2021-09-17 08:36 | REP ---
INDICATION: interval assessment/px study couldn't R/o basilar opacity COMPARISON: 09/13/2021 TECHNIQUE: Portable AP view of the chest FINDINGS: Cardiac silhouette is stable and upper limits of normal. Bilateral lower lobe opacities (right greater than left) have increased from prior examination. No effusion. No pneumothorax. Skeletal structures are intact. IMPRESSION: Increasing lower lobe opacities (right greater than left). <Electronically signed by Chase Alexandre > 09/17/21 [id number]
[2021-09-17 09:25] VITALS: BP 122/82
[2021-09-17] MEDS: THIAMINE 100 MG TAB PO SCH (09:47)
[2021-09-17] MEDS: DOCUSATE SODIUM 100MG CAPSULE PO SCH ×2 (09:47→21:51)
[2021-09-17] MEDS: FOLIC ACID 1 MG TAB PO SCH (09:47)
[2021-09-17] MEDS: ATORVASTATIN 20 MG TAB PO SCH (09:47)
[2021-09-17] MEDS: BENZTROPINE 2 MG TAB PO SCH ×2 (09:47→21:51)
[2021-09-17] MEDS: MULTIVITAMINS/MINERALS THERAP 1 TAB PO SCH (09:47)
[2021-09-17] MEDS: VITAMIN D 1,000 INTERNATIONAL UNITS TABLET PO SCH (09:47)
[2021-09-17] MEDS: DOXYCYCLINE HYCLATE 100 MG in D5W MINI-BAG PLUS 100 ML IV SCH ×2 (09:48→21:51)
--- NOTE | 2021-09-17 09:48 | IPNPDOC ---
Text Note Date of Service The patient was seen on 09/17/21. NOTE Subjective: HPI: Patient initially presented to [facility] with a 5 day hx of worsening SOB, upon the insistence of a neighbor. Patient had noted a worsening SOB on exertion w/ an associated productive cough but is unable to expectorate any appreciable amount of sputum. Patient had also noted LE swelling and that he often wakes up frequently during the night w/ SOB. Patient denies upright sleeping or chills/fever at initial px. At [facility], patient was noted to be in afib w/ RVR with rate of 185. Lab values showed leukocytosis, hyponatremia (severe at 114), hyperkalemia, and elevated BNP of 20,794 (recent baseline approximately 15,000). Patient was given IV fluid at [facility]. [facility] then contacted [facility] for higher level of care via hospitalist and nephrology teams and was subsequently transferred to [facility]. On 09/17 patient was awake and oriented to person, time and place. he was able to answer my questions and follow simple instructions. Patient is definitely still altered and confused but was redirectable enough to obtain a more complete review of systems. [place] through the exam he began repeating himself and echoing me so I'm not 100% positive his answers are true but this is an improvement over yesterday. Patient is also wearing mittens and I am unsure as to why, I know previously he had become agitated during night time and ripped out IV's. Patient apparently tried to trick his sitter into removing his gloves. Sitter also noted he has been coughing since her arrival at 7 AM. Patient reports feeling much better and that he feels pretty good. He reports feeling a little dizzy but denies any headache, chest pain, SOB, and nausea. Patient was able to joanie us he used to use home oxygen but hasn't in awhile he did not state why. ROS: May or may not be accurate due to patients mentation. General: Patient denies fevers/ chills. HEENT: Denies headache, light headedness, visual changes, reports dizziness. Cardiac: Patient denies chest pain/pressure, also denies feeling like his heart is racing. Respiratory: Denies current SOB or difficulty breathing GI: Denies constipation, diarrhea, nausea, and vomiting : Denies hematuria, dysuria, change in frequency Extremities: Denies numbness or tingling Objective: Vitals: see below General: patient is a somnolent 60 year old male who appears older than stated age and is in no acute distress. HENT: NC/AT, PERRLA, scleral icterus present, mucous membranes moist Cardiac: Regular rate with irregular rythm, no murmurs or gallops appreciated. Respiratory: Rhonchi heard bilaterally in lower lobes, right lung ? left. No wheezes or rales appreciated. Decreased Tidal volume noted. Abdominal: Normoactive bowel sounds, reducible umbilical hernia, soft nontender abdomen that is nondistended. Extremities: Unremarkable for edema, 5/5 muscle strength B/L, clubbing of the fingertips Neuro: CN 2-12 grossly intact, no focal deficits noted Psychiatric: Alert and Oriented times 3, confused and somnolent Assessment: Jean-Paul Soriano is a 60 year old male with a notable HO afib, systolic CHF, Hx of alcoholism, nicotine use disorder, COPD, and Schizophrenia who presented to [facility] ED as a [facility] transfer and was found to have afib w/RVR, severe hyponatremia, hyperkalemia, and leukocytosis concerning for acute hypoxic respiratory failure likely 2/2 afib w/RVR and CHF exacerbation. Plan: #. Acute on Chronic Systolic CHF - Clinical signs of fluid overload appear to be resolving - 3LNC oxygen supplementation; baseline O2 requirements unable to be ascertained d/t pt's encephalopathy - BNP 18,581 on 09/13 - Placed on strict I&O's with fluid restriction and daily weights - Negative fluid balance since 09/14 - s/p 3 doses of Furosemide, will not continue as patient appears volume stable as per nephrology consult #. Afib w/RVR, rate controlled on metoprolol - EKG shows afib evidence - negative troponin at [facility], HS Troponin 09/14 WNL, no new values repor [place] - rate controlled s/p IV Dig x1; c/w 50 mg PO lopressor q6h - c/w coumadin - c/w telemetry #. Hypotonic hypervolemic hyponatremia, severe- likely dilutional 2/2 fluid overload due to CHF - Sodium of 130 on 09/17 - continue to repeat sodium levels - Nephrology was consulted w/ Dr. Kilgore and their input is appreciated - Dr. Kilgore ordered 1GM sodium tablets TID, since discontinued due to concerns of rapid sodium correction - Nephrology believes patient is stable from a fluid/CHF standpoint at this time and as a result he will not be given Lasix. - Per Dr. Perez note patients sodium is increasing gradually at an acceptable rate. - We appreciate Dr. Kilgore's help treating the patient. #. UTI - UA at [facility] suggestive of abnormality, [facility] - Patient still has leukocytosis, slightly elevated at 13.1 which is a small increase since yesterday - Repeat UA 09/13 suggests UTI - Urine cultures grew staph aureus - Blood cultures x2 returned no growth after 48 hours - c/w Ceftriaxone, as well as Doxycycline for potential CAP #. Presumed CAP - Patient noted to be coughing productively - Patient oxygen requirements increased to 3LNC - CXR findings of atelectasis and bilateral opacities suggestive of pneumonia - c/w doxycycline - repeat CXR ordered to r/o CAP #. Acute metabolic encephalopathy, likely 2/2 to hyponatremia, possibly 2/2 infection - we are unsure of patients baseline mentation at this time - Patient mentation improved when examined, still confused and repeating himself - hyponatremia is resolving - holding diuresis and sodium repletion at this time due to resolving fluid/CHF instability - Per nephrology consult, this is thought to be less likely 2/2 to hyponatremia and more likely a result of patients psychiatric hx #. Transaminitis, likely 2/2 to hepatic congestion due to volume overload and cirrhotic parenchyma, resolving - Scleral icterus noted upon exam - Elevated AST and ALT but downtrending - Liver US suggests of cirrhosis - Hx of alcoholism - diuresis held in light of resolving fluid status - continue to monitor the patient's transaminases #. COPD - No exacerbation evidence - repeat CXR suggestive of CAP - c/w Xopinex #. Hx of alcoholism - patient notes he quit some time back - c/w thiamine, folate and MVI #. Nicotine dependence - Smoking cessation advised #. Hx of TBI #. Schizophrenia - potentially the cause of AMS due fluctuation between catatonia and confusion DVT prophylaxis: c/w Coumadin CODE STATUS: Full code Disposition: Pending clinical improvement, anticipate at least 1 more midnight stay VS,Fishbone, I+O VS, Luisbone, I+O Laboratory Tests 09/17/21 06:31 Vital Signs Date Time Temp Pulse Resp B/P (MAP) Pulse Ox O2 Delivery O2 Flow Rate FiO2 09/17/21 06:06 88 129/81 09/17/21 04:00 3.0 09/17/21 04:00 97.4 18 94 Nasal Cannula I&O- Last 24 Hours up to 6 AM 09/17/21 06:00 Intake Total 1038 ml Output Total 1250 ml Balance -212 ml GME ATTESTATION GME ATTESTATION My faculty preceptor for this patient encounter was physically present during the encounter and was fully available. All aspects of the patient interview, examination, medical decision making process, and medical care plan development were reviewed and approved by the faculty preceptor. The faculty preceptor is aware and concurs with the plan as stated in the body of this note and will attest to such by his/her cosignature. ATTENDING NOTE I, Mike Ponce DO, have independently examined this patient and performed my own physical exam, as well as reviewed the documentation and edited where necessary. I have discussed in detail with the resident / student the findings and plan of treatment as documented by the resident / student and edited their note. I agree with their findings and treatment plan and have edited their documentation. I will continue to follow the patient during this hospital stay. VIV MARTÍNEZ OMS-3 Sep 17, 2021 09:48 MIKE PONCE DO Sep 17, 2021 17:16
[2021-09-17] MEDS: LEVALBUTEROL 1.25 MG/0.5 ML CONCENTRATE NEB INH SCH ×3 (11:31→20:00)
--- NOTE | 2021-09-17 12:30 | IPN ---
PROGRESS NOTE DATE: 09/17/2021 SUBJECTIVE: Mr. Soriano is seen this morning on his bedside. Nursing staff reports that he has been pulling on his IVs and spitting out his medications. He is otherwise not too agitated. He does have a sitter in the room. PHYSICAL EXAMINATION: VITALS: Temperature 97.2 degrees Fahrenheit, heart rate 64 per minute, respiratory rate 18 per minute, blood pressure 122/82 mmHg, oxygen saturation 97% on 3 liters oxygen. INTAKE/OUTPUT: Records from yesterday show a negative fluid balance of 662 mL. HEENT: Head is atraumatic. Neck supple and JVD not abnormally elevated. HEART: Heart sounds are irregular in rhythm. LUNGS: A few basilar rales. ABDOMEN: Soft and nontender. Bowel sounds are normal. EXTREMITIES: Without any cyanosis or clubbing. NEUROLOGIC: He is able to answer questions and moving all his limps. LABORATORY DATA: Today's labs show WBC 13.1, hemoglobin 12.9, hematocrit 40.2. Sodium is up to 130, potassium 4.2, chloride 90, CO2 36, BUN 16, creatinine 0.68. Total protein 5.2 and albumin 2.6. PROBLEMS: 1. Hyponatremia: Sodium level is improving gradually and nicely. We are holding off diuretic at present, and we will continue with fluid restriction at 1,500 mL per day. 2. Congestive heart failure: Volume status is very well compensated now and no diuretic being given today. He has been in mild negative fluid balance. Patient is on fluid restriction because of his hyponatremia. 3. Atrial fibrillation with rapid ventricular rate: Ventricular rate is now well controlled with Metoprolol. He remains on Coumadin and being managed by the hospitalist service. 4. UTI: Patient is being treated with Ceftriaxone. He is also receiving Doxycycline for possible pulmonary infiltrate. From a renal standpoint, patient is doing well.
[2021-09-17 12:52] VITALS: BP 120/61
[2021-09-17] MEDS: cefTRIAXone SOD 1 GM in D5W MINI-BAG PLUS 50 ML IV SCH (14:01)
[2021-09-17 16:00] VITALS: BP 105/66
[2021-09-17] MEDS ORDERED: WARFARIN SOD 2MG TAB PO ONE (17:00)
[2021-09-17] MEDS: WARFARIN SOD 5MG TAB PO SCH (17:27)
[2021-09-17 20:00] VITALS: BP 118/60
[2021-09-18] VITALS (7 sets, daily range): BP systolic 94–142; BP diastolic 53–74
[2021-09-18] MEDS: METOPROLOL TART 50 MG TAB PO SCH ×4 (05:53→17:19)
[2021-09-18 05:56] LABS: BASO % 0.3 % (0.0-1.0); EOS # 0.2 10^3/uL (0.0-0.5); EOS % 2.1 % (0.0-3.0); HEMATOCRIT 40.3 % (42.0-52.0); HEMOGLOBIN 12.8 g/dl (13.5-17.5); LYMPH # 1.5 10^3/uL (1.5-5.0); LYMPH % 13.7 % (24.0-44.0); MEAN CORPUSCULAR HEMOGLOBIN 27.4 pg (27.0-33.0); MEAN CORPUSCULAR HGB CONC 31.8 g/dl (32.0-36.5); MEAN CORPUSCULAR VOLUME 86.3 fl (80.0-96.0); MONO # 1.2 10^3/uL (0.0-0.8); MONO % 10.7 % (2.0-8.0); NEUTROPHILS # 8.2 10^3/uL (1.5-8.5); NEUTROPHILS % 72.6 % (36.0-66.0); PLATELET COUNT, AUTOMATED 232 10^3/uL (150-450); RED BLOOD COUNT 4.67 10^6/uL (4.30-6.10); WHITE BLOOD COUNT 11.3 10^3/uL (4.0-10.0)
[2021-09-18 06:22] LABS: ALBUMIN 2.5 GM/DL (3.2-5.2); ALT/SGPT 111 U/L (12-78); BILIRUBIN,TOTAL 1.1 MG/DL (0.2-1.0); BLOOD UREA NITROGEN 14 MG/DL (7-18); CALCIUM LEVEL 8.4 MG/DL (8.5-10.1); CARBON DIOXIDE LEVEL 37 MEQ/L (21-32); CHLORIDE LEVEL 91 MEQ/L (98-107); CREATININE FOR GFR 0.58 MG/DL (0.70-1.30); GLOMERULAR FILTRATION RATE > 60.0 (>56); GLUCOSE, FASTING 85 MG/DL (70-100); MAGNESIUM LEVEL 2.2 MG/DL (1.8-2.4); POTASSIUM SERUM 3.8 MEQ/L (3.5-5.1); SODIUM LEVEL 131 MEQ/L (136-145)
[2021-09-18 06:37] LABS: INR 1.87; PROTHROMBIN TIME 21.9 SECONDS (12.7-14.5)
[2021-09-18] MEDS: HumaLOG INSULIN (NovoLOG) PER UNIT SC SCH ×4 (07:30→20:04)
[2021-09-18] MEDS: LEVALBUTEROL 1.25 MG/0.5 ML CONCENTRATE NEB INH SCH ×4 (09:30→20:00)
[2021-09-18] MEDS: DOXYCYCLINE HYCLATE 100 MG in D5W MINI-BAG PLUS 100 ML IV SCH (09:31)
[2021-09-18] MEDS: BENZTROPINE 2 MG TAB PO SCH ×2 (09:31→21:00)
[2021-09-18] MEDS: DOCUSATE SODIUM 100MG CAPSULE PO SCH ×2 (09:31→21:00)
[2021-09-18] MEDS: ATORVASTATIN 20 MG TAB PO SCH (09:31)
[2021-09-18] MEDS: VITAMIN D 1,000 INTERNATIONAL UNITS TABLET PO SCH (09:32)
[2021-09-18] MEDS: THIAMINE 100 MG TAB PO SCH (09:32)
[2021-09-18] MEDS: MULTIVITAMINS/MINERALS THERAP 1 TAB PO SCH (09:32)
[2021-09-18] MEDS: FOLIC ACID 1 MG TAB PO SCH (09:32)
[2021-09-18] MEDS: ADVAIR HFA 230/21MCG INHALER INH SCH ×2 (11:37→20:02)
--- NOTE | 2021-09-18 12:13 | IPN ---
PROGRESS NOTE DATE: 09/18/2021 SUBJECTIVE: Mr. Soriano is seen this morning on his bedside. He is feeling better and able to talk and answer questions. His speech is still somewhat slurred, but better than before. He denies any nausea, vomiting, dyspnea or chest pain. He still has a sitter in the room. OBJECTIVE: On physical examination, temperature 97 degrees Fahrenheit, heart is 64 per minute and respiratory rate 16 per minute. Blood pressure 110/74 mmHg and oxygen saturation 93% on 2 liters oxygen. His head is atraumatic. Neck supple and jugular venous distention (JVD) not elevated. Heart sounds are irregular and lungs with bibasilar coarse crepitations. Abdomen: Soft and nontender. Bowel sounds are normal. Extremities without any cyanosis or clubbing. Neurologically, he is grossly intact. LABORATORY DATA: Today's labs show WBC count 11.3, hemoglobin 12.8 and hematocrit 40.3. Sodium is up to 131, potassium 3.8, chloride 91, Co2 37, BUN 14 and creatinine 0.58. PROBLEMS: 1. Hyponatremia. Sodium level is gradually improving and the patient is currently not on any diuretic or sodium supplement. He should remain on fluid restriction of 1500 mL per day. 2. Congestive heart failure. Volume status seems to be reasonably well compensated. His peripheral edema has improved. We are holding off on any diuretic use as he has been in significantly negative fluid balance. 3. Atrial fibrillation. At present, his ventricular rate is well controlled. All and all from a renal standpoint, the patient is doing very well and we will continue to monitor him closely along with you.
[2021-09-18] MEDS ORDERED: CALCIUM CARBONATE 500 MG CHEW U/D PO PRN (12:55)
[2021-09-18] MEDS: CEFDINIR 300 MG CAP (OMNICEF) PO SCH ×2 (13:52→21:00)
[2021-09-18] MEDS: WARFARIN SOD 5MG TAB PO SCH (17:06)
--- NOTE | 2021-09-18 17:33 | IPNPDOC ---
Date Seen The patient was seen on 09/18/21. Progress Note SUBJECTIVE: Jean-Paul was seen and examined this morning (09/18/2021) by the hospitalist service while lying upright in bed. He is more alert and responsive today than previous days. There were no adverse events reported overnight. Patient is handling his modified soft diet without any issues. He reports that he is experiencing occasional intermittent b/l nare sensitivity/discomfort, likely as a result his nasal cannula. He denies any epistaxis rhinorrhea, or discrete focal nasal pain. Due to patient's improved mental status today, we asked him if he uses home oxygen, which he states that he does not. Upon review this morning, patient denies any current or overnight fever, chills, night sweats, chest pain, palpitations, shortness of breath, cough, abdominal pain, nausea, or vomiting. OBJECTIVE PHYSICAL EXAMINATION: VITAL SIGNS: Please see below. GENERAL: Slightly tired appearing but more alert than previous exams white male lying upright in bed. He does not appear to be in any acute distress. Oral cavity: Mildly dry MM. No significant pharyngeal erythema appreciated. Neck: Trachea midline. No significant LA appreciated. No significant JVD is appreciated. HEENT: NC, AT. Moderate bilateral scleral icterus similar to prior exams. PERRLA. CARDIOVASCULAR: Slightly distant heart sounds making it difficult to accurately appreciate clinically for rhythm, murmurs, or rubs. Telemetry shows that rate is controlled and patient remains in an irregularly irregular rhythm. RESPIRATORY: Wearing 2 L nasal cannula submental oxygen and saturating at 93%. No visualized significant accessory muscle use. There remain intermittent diffuse moderate rhonchi, greater with expiration and in the lower lobes posteriorly. No significant wheezes or crackles are appreciated. Slightly decreased tidal volume. ABDOMINAL: There is a reducible umbilical hernia similar to prior exams. Soft, nontender. Normoactive bowel sounds throughout. No rigidity appreciated. Genitourinary: A Wright catheter remains in place. EXTREMITIES: Bilateral lower extremities free of pitting edema. Clubbing of bilateral fingers remains present. NEUROLOGICAL: Patient is more alert today versus prior exams, but is still tired appearing and occasionally needs sternal rubs to maintain responsiveness. He is oriented to person place and time. He is able to articulate appropriate answers to simple questions and commands which is an improvement over prior exams. He does stutter on repeat the same phrase from time to time, and there remains signs of some neurocognitive decline. LABORATORY DATA, IMAGING STUDIES, MICROBIOLOGY: Please see below. ASSESSMENT AND PLAN: This is a 60-year-old male with notable PMH of HFrEF, atrial fibrillation on home warfarin, COPD reportedly not on home O2, schizophrenia, and alcoholism, who presented to the [facility] ED via transfer from [facility] due to leukocytosis, severe hyponatremia, hyperkalemia, and in atrial fibrillation with rapid ventricular response. There is also concern for acute hypoxic respiratory failure likely secondary to CHF exacerbation and the aforementioned A. fib with RVR. Upon arrival, he was found to be grossly fluid overloaded; this, along with his electrolyte abnormalities, warranted nephrology consultation. #Hypotonic hypervolemic hyponatremia-likely 2/2 fluid overload/delusional component from decompensated HFrEF; improved and stable -Serum sodium has remained stable over the past 48 hours, and improved slightly today (09/18) to 131 from 130 yesterday. -Nephrology remains on consultation; per most recent nephrology documentation, they feel patient's serum sodium remains stable and adequate. It is important that he remain on the 1.5 L per 24-hour fluid restriction. Due to the patient's stability, further diuretic administration is not warranted at this time. -The hospitalist service sincerely appreciates nephrology's continued involvement and insights related to patient's care. -Patient is status post salt tab administration that was discontinued after concern for rapid serum sodium correction; s/p 500 cc D5W to slow serum sodium -In addition to the fluid restriction, patient remains on a soft mechanical and liquid diet I/S/O dysphagia concerns. -Adequate urinary output over the past 4 days with 4 consecutive 24-hour periods of net negative fluid balance. -We will continue to follow on repeat metabolic panels #Acute decompensation of HFrEF, significantly improved -Patient appears to be relatively well compensated upon today's exam. -over the past few days, exam signs of fluid overload have appeared to resolve -Remains on 1.5 L per 24-hour fluid restriction; has had 4 consecutive days of good urinary output with net negative fluid balance -09/14 TTE: Estimated EF 25-30%; bilateral severe atrial enlargement -Based on these findings, there is concern now for progression to right heart failure from left heart failure with elevated CVP and mild pulmonary hypertension -Initial presenting BNP roughly 18,500 (recent baseline appears to be around 15,000) -C/W strict intake and output -As mentioned above, nephrology is on consultation and again due to improved status, diuretic administration not warranted at this time; patient is s/p 3 administrations of furosemide #Atrial fibrillation with rapid ventricular response, rate controlled -Patient has remained rate controlled for the better part of the past 48 to 72 hours -He continues on Lopressor (50 mg p.o. every 6 hours), Coumadin, and telemetry -Rate control occurred s/p one-time IV digoxin dose -Negative troponin at [facility] with unremarkable high sensitive troponin upon presentation to [facility] #Methicillin sensitive Staph aureus urinary tract infection -Unable to ascertain if this is an asymptomatic infection due to patient's largely altered mental status during admission -Apparently initial UA occult and fine was abnormal; repeated urinalysis with urine culture at [facility] showed the MSSA -In addition to the UTI, there is concern for bacterial CAP ABX during admission: -s/p 4 days of ceftriaxone; switched over to oral twice daily cefdinir today (09/18) -s/p 5 days IV doxycycline; switched to oral doxycycline twice daily today (09/18) -Continues to have leukocytosis (WBC 11.3) but without absolute neutrophilia today (09/07) and this is downtrending over the past couple days. #Probable community-acquired pneumonia -Patient has had a productive cough during most of this admission; initial CXR showed bilateral opacities and atelectasis -Repeat CXR yesterday (09/17) showed worsening of bilateral opacities, right worse than the left -Converted over to oral antibiotics today in the form of doxycycline as well as ceftriaxone (there is also an MSSA UTI) -Due to metabolic encephalopathy during most of admission and dysphagia issues, concern for possible aspiration pneumonia to -C/W aspiration precautions and soft mechanical and liquid diet #Possible acute hypoxemic respiratory failure I/S/O COPD -Due to patient's altered status we have been unable to ascertain whether or not he is on oxygen at home. He denied using oxygen at home on today's exam (09/18) -Patient does not appear to be in exacerbation at this time; he is remained stable saturating in the low 90s on 3 L nasal cannula; C/W scheduled and as needed Xopenex and scheduled Advair -Xopenex nebulizers were selected in the setting of patient's A. fib with RVR #Acute metabolic encephalopathy-likely multifactorial, improved -This potentially was secondary to active infection (CAP and UTI), related to history of schizophrenia, hyponatremia, and possible hepatic encephalopathy -Per the nephrology service, there is a lower suspicion that this is 2/2 hyponatremia and more likely a manifestation of his psychiatric condition(s) -Patient's exam today is improved from prior days, he is oriented x3 and responding appropriately to simple commands and questions -This is the best patient has appeared on examination since admission -C/W aspiration precautions with dysphagia soft mechanical and liquid diet -In the setting of improved mental status, we have ordered physical therapy consultation to assess patient's current capabilities and physical needs #Transaminitis, improved -This is presumed to be a result of hepatic congestion from fluid overload as well as cirrhotic parenchyma and H/oh alcoholism -Continues to have scleral icterus on examination-elevated AST and ALT, but these have been downtrending consistently over the past few days -Liver ultrasound obtained was suggestive of cirrhosis -Continue to follow repeat CMPs -Of note, platelet count has been WNL #Schizophrenia -Potential for some neurocognitive decline/dementia along with decompensated schizophrenia contributing to his altered mental status -C/W home benztropine #Normocytic anemia, stable -This was likely a side effect of fluid overload with dilutional component #Nicotine dependence -C/W nicotine patch #History of traumatic brain injury #DVT prophylaxis: C/W home Coumadin CODE STATUS: Full code Disposition: Due to patient's improved mental and fluid status, along with stable hyponatremia, he was downgraded to the medical surgical floor today with telemetry; discharge is pending continued stability and improvement along with PT evaluation VS, I&O, 24H, Fishbone Vital Signs/I&O Vital Signs Date Time Temp Pulse Resp B/P (MAP) Pulse Ox O2 Delivery O2 Flow Rate FiO2 09/18/21 12:40 85 120/62 09/18/21 12:13 96.6 18 93 Nasal Cannula 2.0 I&O- Last 24 Hours up to 6 AM 09/18/21 06:00 Intake Total 550 ml Output Total 1450 ml Balance -900 ml Laboratory Data 24H LABS Laboratory Tests 2 09/17/21 17:02: Bedside Glucose (Misc Panel) 135H 09/17/21 20:39: Bedside Glucose (Misc Panel) 128H 09/18/21 04:47: Immature Granulocyte % (Auto) 0.6, Neutrophils (%) (Auto) 72.6H, Lymphocytes (%) (Auto) 13.7L, Monocytes (%) (Auto) 10.7H, Eosinophils (%) (Auto) 2.1, Basophils (%) (Auto) 0.3, Neutrophils # (Auto) 8.2, Lymphocytes # (Auto) 1.5, Monocytes # (Auto) 1.2H, Eosinophils # (Auto) 0.2, Basophils # (Auto) 0.0, Nucleated Red Blood Cells % (auto) 0.0, Prothrombin Time 21.9H, Prothromb Time International Ratio 1.87, Anion Gap 3L, Glomerular Filtration Rate > 60.0, Calcium Level 8.4L, Magnesium Level 2.2, Total Bilirubin 1.1H, Aspartate Amino Transf (AST/SGOT) 48H, Alanine Aminotransferase (ALT/SGPT) 111H, Alkaline Phosphatase 79, Total Protein 5.0L, Albumin 2.5L, Albumin/Globulin Ratio 1.0 09/18/21 11:44: Bedside Glucose (Misc Panel) 125H 09/18/21 16:40: Bedside Glucose (Misc Panel) 156H CBC/BMP Laboratory Tests 09/18/21 04:47 Microbiology Microbiology 09/13/21 Blood Culture - Preliminary, Resulted No Growth after 72 hours. All specime... 09/13/21 Urine Culture - Final, Complete Staphylococcus Aureus 09/13/21 Blood Culture - Preliminary, Resulted No Growth after 72 hours. All specime... GME ATTESTATION GME ATTESTATION My faculty preceptor for this patient encounter was physically present during the encounter and was fully available. All aspects of the patient interview, examination, medical decision making process, and medical care plan development were reviewed and approved by the faculty preceptor. The faculty preceptor is aware and concurs with the plan as stated in the body of this note and will attest to such by his/her cosignature. ATTENDING NOTE I, Mike Ponce DO, have independently examined this patient and performed my own physical exam, as well as reviewed the documentation and edited where necessary. I have discussed in detail with the resident the findings and plan of treatment as documented by the resident and edited their note. I agree with the ir findings and treatment plan and have edited their documentation. I will continue to follow the patient during this hospital stay. JADEN SIMENTAL D.O. Sep 18, 2021 17:33 MIKE PONCE DO Sep 18, 2021 17:57
[2021-09-18] MEDS: DOXYCYCLINE HYCLATE 100MG TABLET PO SCH (21:00)
[2021-09-19] MEDS: METOPROLOL TART 50 MG TAB PO SCH ×5 (00:19→23:50)
[2021-09-19 06:00] VITALS: BP 104/53
[2021-09-19 06:38] LABS: BASO % 0.2 % (0.0-1.0); EOS # 0.2 10^3/uL (0.0-0.5); EOS % 2.5 % (0.0-3.0); HEMATOCRIT 39.9 % (42.0-52.0); HEMOGLOBIN 12.9 g/dl (13.5-17.5); LYMPH # 1.3 10^3/uL (1.5-5.0); LYMPH % 13.4 % (24.0-44.0); MEAN CORPUSCULAR HEMOGLOBIN 27.7 pg (27.0-33.0); MEAN CORPUSCULAR HGB CONC 32.3 g/dl (32.0-36.5); MEAN CORPUSCULAR VOLUME 85.8 fl (80.0-96.0); MONO # 1.1 10^3/uL (0.0-0.8); MONO % 11.2 % (2.0-8.0); NEUTROPHILS % 72.2 % (36.0-66.0); PLATELET COUNT, AUTOMATED 234 10^3/uL (150-450); RED BLOOD COUNT 4.65 10^6/uL (4.30-6.10); WHITE BLOOD COUNT 9.8 10^3/uL (4.0-10.0)
[2021-09-19 06:51] LABS: INR 1.99
[2021-09-19 07:11] LABS: ALBUMIN 2.4 GM/DL (3.2-5.2); ALT/SGPT 88 U/L (12-78); BILIRUBIN,TOTAL 1.1 MG/DL (0.2-1.0); BLOOD UREA NITROGEN 11 MG/DL (7-18); CALCIUM LEVEL 8.4 MG/DL (8.5-10.1); CARBON DIOXIDE LEVEL 37 MEQ/L (21-32); CHLORIDE LEVEL 94 MEQ/L (98-107); CREATININE FOR GFR 0.58 MG/DL (0.70-1.30); GLOMERULAR FILTRATION RATE > 60.0 (>56); GLUCOSE, FASTING 98 MG/DL (70-100); POTASSIUM SERUM 4.2 MEQ/L (3.5-5.1); SODIUM LEVEL 136 MEQ/L (136-145); TOTAL PROTEIN 4.9 GM/DL (6.4-8.2)
[2021-09-19] MEDS: ADVAIR HFA 230/21MCG INHALER INH SCH ×2 (07:17→20:00)
[2021-09-19] MEDS: LEVALBUTEROL 1.25 MG/0.5 ML CONCENTRATE NEB INH SCH ×4 (07:17→20:00)
[2021-09-19] MEDS: HumaLOG INSULIN (NovoLOG) PER UNIT SC SCH ×4 (07:30→19:48)
[2021-09-19] MEDS: CEFDINIR 300 MG CAP (OMNICEF) PO SCH ×2 (09:43→20:11)
[2021-09-19] MEDS: FOLIC ACID 1 MG TAB PO SCH (09:43)
[2021-09-19] MEDS: VITAMIN D 1,000 INTERNATIONAL UNITS TABLET PO SCH (09:43)
[2021-09-19] MEDS: THIAMINE 100 MG TAB PO SCH (09:43)
[2021-09-19] MEDS: MULTIVITAMINS/MINERALS THERAP 1 TAB PO SCH (09:43)
[2021-09-19] MEDS: DOXYCYCLINE HYCLATE 100MG TABLET PO SCH ×2 (09:43→20:11)
[2021-09-19] MEDS: DOCUSATE SODIUM 100MG CAPSULE PO SCH ×2 (09:43→20:11)
[2021-09-19] MEDS: BENZTROPINE 2 MG TAB PO SCH ×2 (09:43→20:11)
[2021-09-19] MEDS: ATORVASTATIN 20 MG TAB PO SCH (09:44)
[2021-09-19] MEDS ORDERED: METOPROLOL TART 25 MG TABLET PO ONE ×2 (10:30→14:00)
--- NOTE | 2021-09-19 12:14 | IPNPDOC ---
Date Seen The patient was seen on 09/19/21. Progress Note SUBJECTIVE: Jean-Paul was seen and examined this morning (09/19/21) by the hospitalist service while lying upright in bed. Of note, he was downgraded to the medical surgical floor yesterday afternoon (09/18).upon our arrival, he had recently finished his breakfast and, per his sitter, "ate it all." Per reports from nursing, towards change of shift yesterday evening (09/18), patient was oriented to self only when he arrived on [facility]medical surgical floor from PCU. Upon our evaluation this morning he is back to oriented x3, as well as answering simple questions and commands appropriately. This morning he does report some mild dry mouth. He denies any current or overnight fever, chills, sweats, chest pain, palpitations, shortness of breath, abdominal pain, nausea, or vomiting. On review of telemetry, it appears patient's rate remained controlled until earlier this morning (around 6 AM), and his rates since have been running between the 130s and 170s. OBJECTIVE PHYSICAL EXAMINATION: VITAL SIGNS: Please see below. GENERAL: Pleasant white male lying upright in bed. He is more alert this morning and less somnolent than prior exams. Oriented x3. He does not appear to be in any acute distress. HEENT: NC, AT. Scleral icterus remains but unchanged from prior exams. Wearing nasal cannula submental oxygen. CARDIOVASCULAR: Tachycardic rate, irregularly irregular rhythm clinically. On telemetry, rates 130s-160s and in afib. Somewhat distant heart sounds making it difficult to accurately appreciate for significant murmurs or rubs. RESPIRATORY: Wearing 2 L of nasal cannula supplemental oxygen and saturating in the mid 90s. There are some mild intermittent expiratory wheezes of the upper lung areas, with moderate diffuse rhonchi bilaterally similar to prior days exam s; most prevalent rhonchorous sounds are in the right lung base posteriorly. Symmetric chest expansion. Some mild accessory belly breathing at times, but this is unchanged from prior exams. ABDOMINAL: Soft, nontender. Moderately obese. reducible umbilical hernia. There is some hepatomegaly appreciated, approximately 2 to 3 cm inferior to the costal margin. Hyperactive bowel sounds throughout. Genitourinary: Wright catheter remains in place, with visualized yuri-colored urine in the catheter bag. EXTREMITIES: Clubbing again appreciated of bilateral fingers with third buildup under the nails. Bilateral lower extremities are free of pitting edema. NEUROLOGICAL: Patient is awake and consistently more alert than he had been throughout this hospital stay. He is oriented x3. He knows who the president is. He responds appropriately to simple questions and commands. He continues to have a baseline occasional stutter and repetition of the same words, but is for the most part coherent. LABORATORY DATA, IMAGING STUDIES, MICROBIOLOGY: Please see below. ASSESSMENT AND PLAN: This is a 60-year-old male with notable PMH of HFrEF, atrial fibrillation on home warfarin, COPD reportedly not on home O2, schizophrenia, and alcoholism, who presented to the [facility] ED via transfer from [facility] due to leukocytosis, severe hyponatremia, hyperkalemia, and was found to be in atrial fibrillation with rapid ventricular response. There was also concern for acute hypoxic respiratory failure likely secondary to CHF exacerbation and the aforementioned A. fib with RVR. Upon arrival, patient was found to be grossly fluid overloaded; this, along w/ the electrolyte abnormalities, warranted nephrology consultation. #Atrial fibrillation with rapid ventricular response, not currently rate controlled -Since roughly 6 AM this morning (09/19) patient's rates have been in the 130s to 170s on telemetry. Prior to this, he had had roughly 72 hours of consistent rate control -On review, the patient did not receive either his midnight nor 6 AM Lopressor oral medication due to having softer pressures and meeting the holding parameters. -Lopressor dosing is scheduled for 50 mg every 6 hours. -A one-time 25 mg Lopressor dose was administered roughly at 10 AM; will reassess patient's rate and pressures at next check. -Patient denied any chest pain or palpitations upon review this morning -Patient was switched over to medical surgical floor yesterday (09/18) w/ continuation of telemetry -c/w home warfarin (5 mg daily); INR this morning (09/19) 1.99 -Rate control initially achieved s/p one-time IV digoxin dose -Negative troponin at [facility] with unremarkable high sensitive troponin upon presentation to [facility] #Hypotonic hypervolemic hyponatremia-likely 2/2 fluid overload/delusional component from decompensated HFrEF; resolved -For the first time since admission, patient's serum sodium level is within normal limits this morning (09/19) at 136. -He had had a roughly 10 point rise in 12 hours earlier this week that was slowed by 500cc D5W fluid administration along with cessation of salt tab administration. -Nephrology remains on consultation, and the hospitalist service greatly appreciate their continued collaboration and recommendations. -Per recent nephrology documentation, it is important pt remain on the 1.5 L per 24-hour fluid restriction. -Due to the patient's stability, further diuretic administration remains unwarranted at this time -Patient is status post salt tab administration that was discontinued after concern for rapid serum sodium correction; s/p 500 cc D5W to slow serum sodium -Patient remains on a soft mechanical and liquid diet I/S/O dysphagia concerns. -Slightly less urine output over the past 24 hours compared the previous 4 days, but has been net negative for the past 5 days. -We will continue to follow repeat metabolic panels #Acute decompensation of HFrEF, significantly improved -Patient appears to again be relatively well compensated on today's exam. -Remains on 1.5 L per 24-hour fluid restriction; has had 5 consecutive days of net negative fluid balance -09/14 TTE: Estimated EF 25-30%; bilateral severe atrial enlargement -Based on these findings, there is concern now for progression to right heart failure from left heart failure with elevated CVP and mild pulmonary hypertension -Initial presenting BNP roughly 18,500 (recent baseline appears to be around 15,000) -C/W strict intake and output -As mentioned above, nephrology is on consultation and again due to improved and stable status, diuretic administration unwarranted at this time; patient is s/p 3 administrations of furosemide #Methicillin sensitive Staph aureus urinary tract infection -Unable to ascertain if this is an asymptomatic infection due to patient's largely altered mental status during admission -Apparently initial UA occult and fine was abnormal; repeated urinalysis with urine culture at [facility] showed the MSSA -In addition to the UTI, there is concern for bacterial CAP ABX during admission: -s/p 4 days of ceftriaxone; switched over to oral bid cefdinir yesterday (09/18); today is day #2 of cefdinir -s/p 5 days IV doxycycline; switched to oral doxycycline bid yesterday (09/18); today is day #2 of oral doxycycline -No leukocytosis today for the first time since admission (WBC 9.8); le ukocytosis had been downtrending since admission. #Probable community-acquired pneumonia -Patient has had a productive cough during most of this admission; initial CXR showed bilateral opacities and atelectasis -Repeat CXR on 09/17 showed worsening of bilateral opacities, right worse than the left -Converted over to oral antibiotics on 09/18 in the form of doxycycline as well as ceftriaxone (there is also an MSSA UTI) -Due to metabolic encephalopathy during most of admission and dysphagia issues, there's been concern for possible aspiration pneumonia to -C/W aspiration precautions and soft mechanical and liquid diet #Possible acute hypoxemic respiratory failure I/S/O COPD -Due to patient's altered status we have been unable to ascertain whether or not he is on oxygen at home. He denied using oxygen at home on today's exam (09/18) -Patient does not appear to be in exacerbation at this time; he is remained stable saturating in the low 90s on 3 L nasal cannula; C/W scheduled and as needed Xopenex and scheduled Advair -Xopenex nebulizers were selected in the setting of patient's A. fib with RVR #Acute metabolic encephalopathy-likely multifactorial, improved -This potentially was secondary to active infection (CAP and UTI), related to history of schizophrenia, hyponatremia, and possible hepatic encephalopathy -Per the nephrology service, there is a lower suspicion that this is 2/2 hyponatremia and more likely a manifestation of his psychiatric condition(s) -Patient's exam today is improved from prior days, he is oriented x3 and responding appropriately to simple commands and questions -This is the best patient has appeared on examination since admission -C/W aspiration precautions with dysphagia soft mechanical and liquid diet -In the setting of improved mental status, we have ordered physical therapy consultation to assess patient's current capabilities and physical needs #Transaminitis, continually improving -Presumed to be a result of hepatic congestion from fluid overload as well as cirrhotic parenchyma w/ h/o alcoholism -Continues to have scleral icterus on examination -AST no longer elevated; ALT elevated but has been decreasing -Continue to follow repeat CMPs -Of note, platelet count has been WNL #Dysphagia -Speech therapy is following along with the patient. -C/W current diet recommendations (soft mechanical, liquids) and aspiration precautions #Deconditioning and safety concern -Physical therapy has been consulted; per most recent documentation, recommendation is for a few more sessions as patient needs assist for ambulation. Discharge recommendations at this time are home with services. Patient is not safe to return home in his current state. #Schizophrenia -Potential for some neurocognitive decline/dementia along with decompensated schizophrenia contributing to his altered mental status -C/W home benztropine #Normocytic anemia, stable -This was likely a side effect of fluid overload with dilutional component #Nicotine dependence -C/W nicotine patch #History of traumatic brain injury #DVT prophylaxis: C/W home Coumadin CODE STATUS: Full code Disposition: Pending improved strength and ambulation with physical therapy along with control of ventricular rate; recommendation from PT is likely home with services. VS, I&O, 24H, Fishbone Vital Signs/I&O Vital Signs Date Time Temp Pulse Resp B/P (MAP) Pulse Ox O2 Delivery O2 Flow Rate FiO2 09/19/21 10:38 110 106/68 09/19/21 06:00 98.0 18 95 Nasal Cannula 2.0 I&O- Last 24 Hours up to 6 AM 09/19/21 06:00 Intake Total 700 ml Output Total 1400 ml Balance -700 ml Laboratory Data 24H LABS Laboratory Tests 2 09/18/21 11:44: Bedside Glucose (Misc Panel) 125H 09/18/21 16:40: Bedside Glucose (Misc Panel) 156H 09/18/21 19:59: Bedside Glucose (Misc Panel) 137H 09/19/21 06:26: Immature Granulocyte % (Auto) 0.5, Neutrophils (%) (Auto) 72.2H, Lymphocytes (%) (Auto) 13.4L, Monocytes (%) (Auto) 11.2H, Eosinophils (%) (Auto) 2.5, Basophils (%) (Auto) 0.2, Neutrophils # (Auto) 7.0, Lymphocytes # (Auto) 1.3L, Monocytes # (Auto) 1.1H, Eosinophils # (Auto) 0.2, Basophils # (Auto) 0.0, Nucleated Red Blood Cells % (auto) 0.0, Prothrombin Time 23.0H, Prothromb Time International Ratio 1.99, Anion Gap 5L, Glomerular Filtration Rate > 60.0, Calcium Level 8.4L, Magnesium Level 2.0, Total Bilirubin 1.1H, Aspartate Amino Transf (AST/SGOT) 34, Alanine Aminotransferase (ALT/SGPT) 88H, Alkaline Phosphatase 80, Total Protein 4.9L, Albumin 2.4L, Albumin/Globulin Ratio 1.0 CBC/BMP Laboratory Tests 09/19/21 06:26 Microbiology Microbiology 09/13/21 Blood Culture - Final, Complete NO GROWTH AFTER 5 DAYS 09/13/21 Urine Culture - Final, Complete Staphylococcus Aureus 09/13/21 Blood Culture - Final, Complete NO GROWTH AFTER 5 DAYS GME ATTESTATION GME ATTESTATION My faculty preceptor for this patient encounter was physically present during the encounter and was fully available. All aspects of the patient interview, examination, medical decision making process, and medical care plan development were reviewed and approved by the faculty preceptor. The faculty preceptor is aware and concurs with the plan as stated in the body of this note and will attest to such by his/her cosignature. ATTENDING NOTE I, Mike Ponce DO, have independently examined this patient and performed my own physical exam, as well as reviewed the documentation and edited where necessary. I have discussed in detail with the resident the findings and plan of treatment as documented by the resident and edited their note. I agree with their findings and treatment plan and have edited their documentation. I will continue to follow the patient during this hospital stay. JADEN SIMENTAL D.O. Sep 19, 2021 12:14 MIKE PONCE DO Sep 19, 2021 17:00
[2021-09-19 14:00] VITALS: BP 105/63
[2021-09-19] MEDS: WARFARIN SOD 5MG TAB PO SCH (18:11)
[2021-09-19 22:00] VITALS: BP 100/61
[2021-09-20 05:10] VITALS: BP 122/58
[2021-09-20] MEDS: METOPROLOL TART 50 MG TAB PO SCH ×4 (05:26→23:17)
[2021-09-20 06:43] LABS: BASO # 0.1 10^3/uL (0.0-0.2); BASO % 0.5 % (0.0-1.0); EOS # 0.3 10^3/uL (0.0-0.5); EOS % 2.7 % (0.0-3.0); HEMATOCRIT 41.8 % (42.0-52.0); HEMOGLOBIN 13.4 g/dl (13.5-17.5); LYMPH # 1.4 10^3/uL (1.5-5.0); LYMPH % 13.7 % (24.0-44.0); MEAN CORPUSCULAR HEMOGLOBIN 27.7 pg (27.0-33.0); MEAN CORPUSCULAR HGB CONC 32.1 g/dl (32.0-36.5); MEAN CORPUSCULAR VOLUME 86.4 fl (80.0-96.0); MONO # 1.1 10^3/uL (0.0-0.8); NEUTROPHILS # 7.5 10^3/uL (1.5-8.5); NEUTROPHILS % 71.5 % (36.0-66.0); PLATELET COUNT, AUTOMATED 240 10^3/uL (150-450); RED BLOOD COUNT 4.84 10^6/uL (4.30-6.10); WHITE BLOOD COUNT 10.4 10^3/uL (4.0-10.0)
[2021-09-20 06:53] LABS: INR 2.15; PROTHROMBIN TIME 24.4 SECONDS (12.7-14.5)
[2021-09-20 07:27] LABS: ALBUMIN 2.6 GM/DL (3.2-5.2); ALT/SGPT 83 U/L (12-78); BILIRUBIN,TOTAL 0.9 MG/DL (0.2-1.0); BLOOD UREA NITROGEN 9 MG/DL (7-18); CALCIUM LEVEL 8.6 MG/DL (8.5-10.1); CARBON DIOXIDE LEVEL 37 MEQ/L (21-32); CHLORIDE LEVEL 97 MEQ/L (98-107); GLOMERULAR FILTRATION RATE > 60.0 (>56); GLUCOSE, FASTING 113 MG/DL (70-100); MAGNESIUM LEVEL 2.1 MG/DL (1.8-2.4); POTASSIUM SERUM 4.6 MEQ/L (3.5-5.1); SODIUM LEVEL 137 MEQ/L (136-145); TOTAL PROTEIN 5.2 GM/DL (6.4-8.2)
[2021-09-20] MEDS: HumaLOG INSULIN (NovoLOG) PER UNIT SC SCH ×4 (07:30→20:23)
[2021-09-20] MEDS: ADVAIR HFA 230/21MCG INHALER INH SCH ×2 (08:00→20:00)
[2021-09-20] MEDS: LEVALBUTEROL 1.25 MG/0.5 ML CONCENTRATE NEB INH SCH ×4 (08:00→20:00)
[2021-09-20] MEDS: CEFDINIR 300 MG CAP (OMNICEF) PO SCH ×2 (09:38→20:23)
[2021-09-20] MEDS: FOLIC ACID 1 MG TAB PO SCH (09:38)
[2021-09-20] MEDS: THIAMINE 100 MG TAB PO SCH (09:38)
[2021-09-20] MEDS: DOCUSATE SODIUM 100MG CAPSULE PO SCH ×2 (09:38→20:24)
[2021-09-20] MEDS: DOXYCYCLINE HYCLATE 100MG TABLET PO SCH ×2 (09:38→20:23)
[2021-09-20] MEDS: BENZTROPINE 2 MG TAB PO SCH ×2 (09:38→20:23)
[2021-09-20] MEDS: VITAMIN D 1,000 INTERNATIONAL UNITS TABLET PO SCH (09:39)
[2021-09-20] MEDS: ATORVASTATIN 20 MG TAB PO SCH (09:39)
[2021-09-20] MEDS: MULTIVITAMINS/MINERALS THERAP 1 TAB PO SCH (09:39)
--- NOTE | 2021-09-20 10:17 | IPNPDOC ---
Text Note Date of Service The patient was seen on 09/20/21. NOTE Subjective: Patient is a 60-year-old male who initially presented to the [facility] for altered mental status and was found to be hyponatremic which was thought to be secondary to hypervolemic hyponatremia secondary to CHF exacerbation. Patient has been diuresed and is feeling better today. Patient is much more alert and oriented over the past few days. Patient had a urinary catheter placed initially at [facility] for critical monitoring. Patient apparently does wear oxygen at home but is noncompliant with this. Patient is currently on 2 L of nasal cannula oxygen. Patient denies any complaints at this time. I was contacted by nursing staff saying that after the catheters were removed, a white discharge was noticed on the glans of the penis. Patient is uncircumcised and does not complain of any pain unless the glans was being cleaned. Patient is otherwise feeling well at this time. Review of systems: General: Patient denies fevers HEENT: Patient denies headaches Cardiovascular: Patient denies chest pain Respiratory: Patient denies shortness of breath, cough GI: Patient denies abdominal pain, nausea, vomiting, diarrhea : Patient denies increased frequency or pain with urination Extremities: Patient denies swelling or pain in extremities Neurological: Patient denies numbness or tingling in legs Physical exam: Vitals: See below General: Alert and oriented male patient who is laying in bed. Patient was able to sit up on the edge of the bed without difficulty. Patient had nasal cannula oxygen in place. Patient did not appear to be in acute distress. HEENT: Normocephalic, atraumatic, moist mucous membranes. Neck: No lymphadenopathy or thyromegaly Cardiac: Regular rate and rhythm, no murmurs, normal S1, normal S2 Pulm: Clear to auscultation bilaterally. No wheezes, rhonchi, rales Abd: Nondistended, nontender to palpation, normal bowel sounds Ext: No edema bilateral lower extremities Labs: See below Imaging: No new imaging is been performed Assessment/plan: 60-year-old male patient who presented to the hospital from [facility] due to leukocytosis, severe hyponatremia, hyperkalemia who was found to be in atrial fibrillation with rapid ventricular response with a CHF exacerbation. Patient is improving at this time. 1. Atrial fibrillation with a rapid ventricular response. This was not rate controlled yesterday as the patient had missed his metoprolol a few doses. Patient is now getting his metoprolol dose and his heart rate is better controlled today. We will continue with his Lopressor. Warfarin has been continued and his INR is back in the therapeutic range today. We will continue to monitor the patient. Patient had negative troponin at [facility]. We will continue to monitor. 2. Hypotonic, hypervolemic hyponatremia likely secondary to fluid overload. This is resolved at this time. Patient had his sodium level resolve slowly. Patient did need a 500 cc D5 water to slow serum sodium correction down earlier on however, patient sodium level is now back into the normal range. 3. Acute decompensation of heart failure with reduced ejection fraction. Patient was diuresed with the help of nephrology. Patient does not need any more diuresis at this time. We will continue to monitor. 4. Methicillin sensitive staph aureus urinary tract infection. Patient was giv en doxycycline and ceftriaxone for possible community-acquired pneumonia. Patient's blood cultures were negative for MSSA. 5. Probable community-acquired pneumonia present on admission. Patient had repeat chest x-ray that showed worsening bilateral opacities. Patient has been switched to oral antibiotics in the form of doxycycline and cefdinir. Patient had metabolic encephalopathy on admission and dysphagia issues so there was concern for possible aspiration. Patient is swallowing much better now. 6. Possible acute hypoxemic respiratory failure in the setting of COPD and heart failure. Patient respiratory failure has improved. Patient apparently has chronic hypoxic respiratory failure requiring 2 L of oxygen at home. Patient apparently is noncompliant with this. 7. Acute metabolic encephalopathy likely multifactorial. This is improved. Patient is much more with it. Will need to speak with PFS about possibly discharging the patient in the next 24 to 48 hours and may ensure that we have a safe discharge plan to the patient's altered mental status. Patient does apparently live at home alone. 8. Transaminitis, continually improving. Most likely secondary to hepatic congestion from fluid overload. Continue to monitor. 9. Dysphagia. Speech therapy is following along with the patient. Continue mechanical soft and thin liquids. 10. Deconditioning with safety concerns. Continue with physical therapy and PFS consult. 11. Schizophrenia. Potential for some neurocognitive decline/dementia along with decompensated schizophrenia contributing to altered mental status. Continue with home medications. 12. Normocytic anemia, stable. Likely side effect fluid overload with dilutional component. 13. Nicotine dependence continue nicotine patch. 14. History of TBI. DVT Prophylaxis: Coumadin, now therapeutic Disposition: Pending improvement in strength. Urinary catheter has been pulled. Patient will need successful voiding trial VS,Fishbone, I+O VS, Fishbone, I+O Laboratory Tests 09/20/21 06:25 Vital Signs Date Time Temp Pulse Resp B/P (MAP) Pulse Ox O2 Delivery O2 Flow Rate FiO2 09/20/21 05:26 74 122/54 09/20/21 05:10 98.3 20 94 Nasal Cannula 2.0 I&O- Last 24 Hours up to 6 AM 09/20/21 06:00 Intake Total 1464 ml Output Total 2225 ml Balance -761 ml LAURA ATKINSON DO Sep 20, 2021 10:17
--- NOTE | 2021-09-20 12:26 | IPN ---
NEPHROLOGY PROGRESS NOTE DATE: 09/20/2021 SUBJECTIVE: Mr. Soriano is seen this morning on his bedside. He is sitting at the edge of the bed and just finished eating his breakfast. He is feeling better and denies any nausea, vomiting, dyspnea or chest pain. He still has a sitter in the room. PHYSICAL EXAMINATION: VITAL SIGNS: Temperature 98.3 degrees Fahrenheit, heart rate 74 per minute, respiratory rate 20 per minute, blood pressure 122/54 mmHg, oxygen saturation 94% on 2 liters oxygen. HEAD: Atraumatic. NECK: Supple and without jugular venous distention (JVD) or thyroid enlargement. HEART SOUNDS: Regular. LUNGS: Clear to auscultation. ABDOMEN: Soft and nontender. Bowel sounds are normal. EXTREMITIES: Without any cyanosis or clubbing. NEUROLOGIC: He is awake and able to answers questions. His speech is still slightly slurred. LABORATORY DATA: Today's labs show WBC count 10.4, hemoglobin 13.4, hematocrit 41.8. Sodium 137, potassium 4.6, CO2 37, BUN 9, creatinine 0.60. PROBLEMS: 1. Hyponatremia. Nephrology was originally consulted for hyponatremia and congestive heart failure. Patient has complete resolution of his hyponatremia without any problem and sodium level is now completely corrected. He is only on a fluid restriction of 1500 mL per day and no medications. 2. Congestive heart failure. At present, clinically his volume status is well compensated and he is not receiving any dose of standing diuretic. We have used diuretic on an as needed basis. If he follows his fluid restriction of 1500 mL per day, he will probably not require a daily dose of diuretic. From a renal standpoint, Mr. Soriano is doing very well and does not need any further nephrology followup. I am signing off his case. Please do not hesitate to call me back should you need any further assistance.
[2021-09-20 14:00] VITALS: BP 119/78
[2021-09-20] MEDS: WARFARIN SOD 5MG TAB PO SCH (18:21)
[2021-09-21 05:14] VITALS: BP 108/90
[2021-09-21] MEDS: METOPROLOL TART 50 MG TAB PO SCH ×4 (05:14→22:51)
[2021-09-21 06:04] LABS: BASO # 0.1 10^3/uL (0.0-0.2); BASO % 0.6 % (0.0-1.0); EOS # 0.3 10^3/uL (0.0-0.5); HEMATOCRIT 43.4 % (42.0-52.0); HEMOGLOBIN 13.6 g/dl (13.5-17.5); LYMPH # 1.7 10^3/uL (1.5-5.0); LYMPH % 17.4 % (24.0-44.0); MEAN CORPUSCULAR HEMOGLOBIN 27.7 pg (27.0-33.0); MEAN CORPUSCULAR HGB CONC 31.3 g/dl (32.0-36.5); MEAN CORPUSCULAR VOLUME 88.4 fl (80.0-96.0); MONO % 10.5 % (2.0-8.0); NEUTROPHILS # 6.5 10^3/uL (1.5-8.5); PLATELET COUNT, AUTOMATED 255 10^3/uL (150-450); RED BLOOD COUNT 4.91 10^6/uL (4.30-6.10); WHITE BLOOD COUNT 9.6 10^3/uL (4.0-10.0)
[2021-09-21 06:32] LABS: ALBUMIN 2.7 GM/DL (3.2-5.2); ALT/SGPT 77 U/L (12-78); BLOOD UREA NITROGEN 10 MG/DL (7-18); CALCIUM LEVEL 8.9 MG/DL (8.5-10.1); CARBON DIOXIDE LEVEL 38 MEQ/L (21-32); CHLORIDE LEVEL 97 MEQ/L (98-107); CREATININE FOR GFR 0.65 MG/DL (0.70-1.30); GLOMERULAR FILTRATION RATE > 60.0 (>56); GLUCOSE, FASTING 110 MG/DL (70-100); MAGNESIUM LEVEL 1.9 MG/DL (1.8-2.4); POTASSIUM SERUM 4.7 MEQ/L (3.5-5.1); SODIUM LEVEL 137 MEQ/L (136-145); TOTAL PROTEIN 5.8 GM/DL (6.4-8.2)
[2021-09-21] MEDS: ADVAIR HFA 230/21MCG INHALER INH SCH ×2 (07:23→20:00)
[2021-09-21] MEDS: LEVALBUTEROL 1.25 MG/0.5 ML CONCENTRATE NEB INH SCH ×4 (07:24→20:00)
[2021-09-21] MEDS: HumaLOG INSULIN (NovoLOG) PER UNIT SC SCH ×4 (10:36→21:00)
[2021-09-21] MEDS: THIAMINE 100 MG TAB PO SCH (10:37)
[2021-09-21] MEDS: TAMSULOSIN 0.4 MG CAP PO SCH (10:37)
[2021-09-21] MEDS: BENZTROPINE 2 MG TAB PO SCH ×2 (10:37→21:41)
[2021-09-21] MEDS: MULTIVITAMINS/MINERALS THERAP 1 TAB PO SCH (10:37)
[2021-09-21] MEDS: DOCUSATE SODIUM 100MG CAPSULE PO SCH ×2 (10:37→21:41)
[2021-09-21] MEDS: CEFDINIR 300 MG CAP (OMNICEF) PO SCH (10:37)
[2021-09-21] MEDS: VITAMIN D 1,000 INTERNATIONAL UNITS TABLET PO SCH (10:37)
[2021-09-21] MEDS: DOXYCYCLINE HYCLATE 100MG TABLET PO SCH (10:38)
[2021-09-21] MEDS: ATORVASTATIN 20 MG TAB PO SCH (10:38)
[2021-09-21] MEDS: FOLIC ACID 1 MG TAB PO SCH (10:38)
--- NOTE | 2021-09-21 11:29 | IPNPDOC ---
Text Note Date of Service The patient was seen on 09/21/21. NOTE Subjective: Patient is a 60-year-old male initially presented to hospital for altered mental status found to be hyponatremic which was thought to be secondary to hypervolemic hyponatremia secondary to CHF exacerbation. Patient is doing much better. Patient had Wright catheter removed yesterday however, he was unable to void and the Wright catheter had been replaced as he had almost 500 cc of urine in his bladder that had built up throughout the day yesterday. Patient attempted to void was unable to. Patient apparently has been having trouble affording his oxygen at home and may need placement according to PFS. Patient is otherwise feeling well does not have any other complaints today. Review of systems: General: Patient denies fevers HEENT: Patient denies headaches Cardiovascular: Patient denies chest pain Respiratory: Patient denies shortness of breath, cough GI: Patient denies abdominal pain, nausea, vomiting, diarrhea : Patient denies increased frequency or pain with urination Extremities: Patient denies swelling or pain in extremities Neurological: Patient denies numbness or tingling in legs Physical exam: Vitals: See below General: Alert and oriented male patient who was sitting in the bedside chair when I walked in. Patient did not appear to be in any acute distress. Nasal cannula oxygen was in place. HEENT: Normocephalic, atraumatic, moist mucous membranes. Neck: No lymphadenopathy or thyromegaly Cardiac: Regular rate and rhythm, no murmurs, normal S1, normal S2 Pulm: Clear to auscultation bilaterally. No wheezes, rhonchi, rales Abd: Nondistended, nontender to palpation, normal bowel sounds Ext: No edema bilateral lower extremities Labs: See below Imaging: No new imaging has been performed. Assessment/plan: 60-year-old male who presented to the hospital from [facility] due to leukocytosis, severe hyponatremia, hyperkalemia was found to be in atrial fibrillation with RVR with a CHF exacerbation. 1. Atrial fibrillation with a rapid ventricular response. This was not rate controlled a few days ago due to missed medication. Patient is now getting his medication and his heart rate is better controlled. Patient can be removed from telemetry at this time. Patient's INR is back into the therapeutic range. Continue to monitor. 2. Hypervolemic hyponatremia secondary to fluid overload. Resolved at this t agueda. Patient sodium level did resolve slowly. Patient did need a 500 cc D5 water bolus to slow serum sodium correction down during his hospitalization however, patient sodium levels are now back in the normal range. Continue to monitor. 3. Acute decompensation of heart failure with reduced ejection fraction. Patient was diuresed with the help of nephrology. Patient does not need any diuresis at this time. Continue to monitor. 4. Methicillin sensitive staph aureus urinary tract infection. Given doxycycline ceftriaxone as patient possibly had community-acquired pneumonia. Blood cultures were negative. Continue to monitor. 5. Probable community-acquired pneumonia present on admission. Repeat chest x- ray showed worsening bilateral opacities. Switch to oral antibiotics in the f orm of doxycycline cefdinir. Patient metabolic encephalopathy on admission and dysphagia issues have resolved. Patient is doing better now. 6. Possible acute hypoxemic respiratory failure in setting of COPD and heart failure. Patient's respiratory failure is improved. Patient barely has chronic hypoxic respiratory failure and requires 2 L of oxygen at home however, patient apparently has been unable to afford this and return to the tank according to PFS. Patient may need placement. 7. Acute metabolic encephalopathy likely back to factorial. This is improved. 8. Transaminitis, continually improving. Most likely secondary hepatic congestion from fluid overload. 9. Dysphagia. Speech therapy is following the patient. Continue mechanical soft foods with thin liquids. 10. Deconditioning with safety concerns. Continue physical therapy and PFS. 11. Schizophrenia. Potential for some neurocognitive decline/dementia along with decompensated schizophrenia contributing to altered mental status. Continue home medications. 12. Normocytic anemia, stable. Likely a side effect of fluid overload. 13. Nicotine dependence continue nicotine patch. 14. History of TBI. DVT Prophylaxis: Coumadin, now therapeutic Disposition: Pending possible placement. Patient will be made ALC status today. VS,Fishbone, I+O VS, Fishbone, I+O Laboratory Tests 09/21/21 05:40 Vital Signs Date Time Temp Pulse Resp B/P (MAP) Pulse Ox O2 Delivery O2 Flow Rate FiO2 09/21/21 07:24 Nasal Cannula 4.0 09/21/21 05:14 97.1 59 18 108/90 (96) 95 I&O- Last 24 Hours up to 6 AM 09/21/21 06:00 Intake Total 1200 ml Output Total 1875 ml Balance -675 ml LAURA ATKINSON DO Sep 21, 2021 11:29
[2021-09-21 14:00] VITALS: BP 101/59
[2021-09-21] MEDS: WARFARIN SOD 5MG TAB PO SCH (18:11)
[2021-09-21 19:45] VITALS: BP 105/68
[2021-09-21] MEDS: ACETAMINOPHEN TAB 650MG DOSE (2X325MG) PO PRN (21:42)
[2021-09-22 05:00] VITALS: BP 117/74
[2021-09-22] MEDS: METOPROLOL TART 50 MG TAB PO SCH ×3 (05:11→17:08)
[2021-09-22] MEDS: HumaLOG INSULIN (NovoLOG) PER UNIT SC SCH ×4 (07:30→20:15)
[2021-09-22] MEDS: ADVAIR HFA 230/21MCG INHALER INH SCH ×2 (07:46→19:56)
[2021-09-22] MEDS: LEVALBUTEROL 1.25 MG/0.5 ML CONCENTRATE NEB INH SCH ×4 (07:47→19:56)
[2021-09-22] MEDS: FOLIC ACID 1 MG TAB PO SCH (08:21)
[2021-09-22] MEDS: MULTIVITAMINS/MINERALS THERAP 1 TAB PO SCH (08:21)
[2021-09-22] MEDS: TAMSULOSIN 0.4 MG CAP PO SCH (08:21)
[2021-09-22] MEDS: BENZTROPINE 2 MG TAB PO SCH ×2 (08:21→20:22)
[2021-09-22] MEDS: VITAMIN D 1,000 INTERNATIONAL UNITS TABLET PO SCH (08:21)
[2021-09-22] MEDS: ATORVASTATIN 20 MG TAB PO SCH (08:22)
[2021-09-22] MEDS: DOCUSATE SODIUM 100MG CAPSULE PO SCH ×2 (08:22→20:22)
[2021-09-22] MEDS: THIAMINE 100 MG TAB PO SCH (08:24)
--- NOTE | 2021-09-22 12:27 | IPNPDOC ---
Text Note Date of Service The patient was seen on 09/22/21. NOTE Subjective: Patient is a 60-year-old male with a PMHx of Hx of TBI, A fib (on Coumadin), Systolic CHF (EF: 40-45%), COPD, Hx of Alcoholism, Nicotine dependence, Schizophrenia who presented to [facility] as a transfer from [facility] on 09/13. Patient had originally presented to [facility] for worsening shortness of breath over the last 5 days. Patient had come in at the insistence of his neighbor. Patient had reported worsening shortness of breath, worse with exertion, associated with a productive cough. Patient reports that he is unable to expectorate much sputum.. He is also reported worsening lower extremity swelling. Patient does wake up several times at night short of breath. He denies sleeping upright. Patient has not experience any fevers or chills. Patient was transferred to [facility] for further evaluation and treatment. Nephrology was called on consultation for severe hyponatremia. Patient was seen and examined at the bedside. Currently, patient was seen sitting up in a chair, appears comfortable, not in any acute distress. Denies any chest pain, shortness breath, palpitations, abdominal pain, patient diarrhea, or urinary discomfort. Patient continues to work with physical therapy today; was not cleared for discharge home Objective: Vitals (See below) General: Lying in bed, appears comfortable, AAOx3 HEENT: NC, AT CVS: RRR, +S1S2 Lungs: Fair air entry b/l, no wheezing, rales or rhonchi Abdomen: Soft, ND, NT Extremities: - Edema, - Calf tenderness, R foot with no Achilles tendon tenderness / can dorsiflex/plantar flex / tenderness on deep palpation of R heel Imaging: CXR 09/13: Cannot exclude basilar opacity/atelectasis. CT head 09/15: 1. Mild diffuse parenchymal atrophy. 2. No acute intracranial findings. CXR 09/17: Increasing lower lobe opacities (right greater than left). Assessment and plan: R foot pain - Unclear how long this may have been ongoing; patient had not complained of pain until working with PT 09/21; however was essentially been bed bound since admission - Denies any trauma to his R foot - Is able dorsiflex / plantar flex his foot - Will get x-ray right foot - Will consider consultation with Orthopedic surgery for further assistance if imaging is positive - c/w PT and OT; awaiting clearance for DC home with services Acute hypoxic respiratory failure - likely 2/2 multifactorial etiology - likely 2/2 A. fib with RVR and Acute and Chronic Systolic CHF - See below - Currently patient is on 2 L of nasal cannula oxygen; will likely require this on discharge Acute on Chronic Systolic CHF (EF: 40-45%) - Physical without any evidence of fluid overload - ECHO noted above - c/w strict ins/outs, daily weights, fluid restriction - s/p Diuresis A. fib with RVR - Patient denies any chest pain or palpitations - Troponin trend negative - INR therapeutic - s/p Telemetry - c/ Metoprolol tartrate; will adjust to BID dosing on discharge - c/w Coumadin s/p Hyponatremia - likely 2/2 hypotonic hypervolemic etiology - likely 2/2 CHF - Sodium has normalized - Nephrology has been consulted; appreciate their input Urinary tract infection - likely 2/2 MSSA - UA noted to be abnormal at [facility] - Leukocytosis at [facility] - Will repeat UA w/ reflex culture / CBC / Lactic acid - s/p Antibiotic treatment Urinary rentition - Patient is failed a voiding trial - Wright catheter was reinserted 09/21 - c/w Tamsulosin - Will have outpatient follow-up with urology COPD - No evidence of exacerbation - c/w inhaled therapy as ordered Hx of Alcoholism - Patient reports he quit drinking a while ago - c/w Thiamine / Folate / MVI Nicotine dependence - Advised smoking cessation - Will provide nicotine patch DM2 - c/w ISS DLP - c/w Atorvastatin Hx of TBI Schizophrenia DVT prophylaxis - c/w Full anticoagulation with Coumadin Code status: - Full code Disposition: - Pending clinical improvement - c/w ALC status VS,Fishbone, I+O VS, Fishbone, I+O Vital Signs Date Time Temp Pulse Resp B/P (MAP) Pulse Ox O2 Delivery O2 Flow Rate FiO2 09/22/21 05:11 94 117/74 09/22/21 05:00 98.6 17 91 Nasal Cannula 4.0 I&O- Last 24 Hours up to 6 AM 09/22/21 06:00 Intake Total 1620 ml Output Total 2800 ml Balance -1180 ml VENITA DE LEON MD Sep 22, 2021 12:27
--- NOTE | 2021-09-22 12:55 | REP ---
INDICATION: R foot pain COMPARISON: None. TECHNIQUE: AP, lateral, bilateral oblique views right foot. FINDINGS: Generalized age-related changes are appreciated Lateral view demonstrates a small fractured osteophyte along the posterosuperior aspect of the calcaneus which should be correlated with physical examination. No further acute fracture or dislocation identified. No subcutaneous emphysema or foreign body. IMPRESSION: As above. <Electronically signed by Chase Alexandre > 09/22/21 [id number]
[2021-09-22 14:00] VITALS: BP 115/69
--- NOTE | 2021-09-22 15:29 | CR ---
CONSULTATION DATE: 09/22/2021 CHIEF COMPLAINT: Right foot pain. HISTORY OF PRESENT ILLNESS: I was called by the hospitalist, Dr. Shah, today on 09/22/2021 at approximately 1430. According to the provider, the patient has had foot pain. He does not know how long that this has been going. He has not asked the patient how long this has been going on for so this is an undetermined length of time that he has had foot pain. According to the provider, there is no trauma. The patient was originally admitted for hyponatremia. He states that the patient is having difficulty ambulating and poor balance with the physical therapist. Therefore, he has not been cleared to ambulate or be discharged home. PHYSICAL EXAMINATION: On physical exam, per Dr. Shah the patient has some pain to palpation at the heel, but he did not do an exam of the Achilles tendon, and no other significant findings reported by Dr. Shah. Radiographs have been obtained of the right foot today on 09/22/2021. There are AP, lateral, and oblique x-rays of the right foot. Radiologist interpretation states generalized age-related changes are appreciated. The lateral view demonstrates a small fractured osteophyte along the posterior-superior aspect of the calcaneus which should be correlated with physical examination. No further acute fracture or dislocation identified. No subcutaneous emphysema or foreign body. ASSESSMENT/PLAN: A 60-year-old man with age indeterminate pain in his heel. X-ray shows age indeterminate possible fractured osteophyte or a soft tissue calcification in the area of the Achilles. I suggested to Dr. Shah that he further elucidate the patient's history, length of foot pain, and quality of the pain as well as performing physical exam of the Achilles tendon. Dr. Shah is insistent that I see the patient. There is no obvious emergent surgical or need for emergent evaluation within the next 30 minutes, and, therefore, I will see and assess the patient within an appropriate [address] Shah understands and is in agreement with the plan and had no further questions.
[2021-09-22] MEDS: ACETAMINOPHEN TAB 650MG DOSE (2X325MG) PO PRN ×2 (15:33→20:22)
[2021-09-22] MEDS: WARFARIN SOD 5MG TAB PO SCH (17:07)
[2021-09-22 20:00] VITALS: BP 115/72
[2021-09-23] MEDS: METOPROLOL TART 50 MG TAB PO SCH ×5 (00:45→23:26)
[2021-09-23 06:00] VITALS: BP 98/59
[2021-09-23 06:40] LABS: BASO # 0.1 10^3/uL (0.0-0.2); BASO % 0.6 % (0.0-1.0); EOS # 0.2 10^3/uL (0.0-0.5); EOS % 2.3 % (0.0-3.0); HEMATOCRIT 41.4 % (42.0-52.0); HEMOGLOBIN 13.1 g/dl (13.5-17.5); LYMPH # 1.7 10^3/uL (1.5-5.0); LYMPH % 19.6 % (24.0-44.0); MEAN CORPUSCULAR HEMOGLOBIN 27.8 pg (27.0-33.0); MEAN CORPUSCULAR HGB CONC 31.6 g/dl (32.0-36.5); MEAN CORPUSCULAR VOLUME 87.7 fl (80.0-96.0); MONO # 0.8 10^3/uL (0.0-0.8); MONO % 8.9 % (2.0-8.0); NEUTROPHILS % 68.3 % (36.0-66.0); PLATELET COUNT, AUTOMATED 233 10^3/uL (150-450); RED BLOOD COUNT 4.72 10^6/uL (4.30-6.10); WHITE BLOOD COUNT 8.8 10^3/uL (4.0-10.0)
[2021-09-23 07:08] LABS: BLOOD UREA NITROGEN 10 MG/DL (7-18); CALCIUM LEVEL 9.1 MG/DL (8.5-10.1); CARBON DIOXIDE LEVEL 36 MEQ/L (21-32); CHLORIDE LEVEL 100 MEQ/L (98-107); CREATININE FOR GFR 0.64 MG/DL (0.70-1.30); GLOMERULAR FILTRATION RATE > 60.0 (>56); GLUCOSE, FASTING 115 MG/DL (70-100); POTASSIUM SERUM 4.2 MEQ/L (3.5-5.1); SODIUM LEVEL 139 MEQ/L (136-145)
[2021-09-23] MEDS: ADVAIR HFA 230/21MCG INHALER INH SCH ×2 (07:46→18:26)
[2021-09-23] MEDS: LEVALBUTEROL 1.25 MG/0.5 ML CONCENTRATE NEB INH SCH ×4 (07:47→18:26)
[2021-09-23] MEDS: HumaLOG INSULIN (NovoLOG) PER UNIT SC SCH ×4 (08:50→20:35)
[2021-09-23] MEDS: TAMSULOSIN 0.4 MG CAP PO SCH (10:23)
[2021-09-23] MEDS: THIAMINE 100 MG TAB PO SCH (10:23)
[2021-09-23] MEDS: MULTIVITAMINS/MINERALS THERAP 1 TAB PO SCH (10:23)
[2021-09-23] MEDS: FOLIC ACID 1 MG TAB PO SCH (10:23)
[2021-09-23] MEDS: VITAMIN D 1,000 INTERNATIONAL UNITS TABLET PO SCH (10:23)
[2021-09-23] MEDS: DOCUSATE SODIUM 100MG CAPSULE PO SCH ×2 (10:23→20:35)
[2021-09-23] MEDS: BENZTROPINE 2 MG TAB PO SCH ×2 (10:23→20:35)
[2021-09-23] MEDS: ATORVASTATIN 20 MG TAB PO SCH (10:24)
[2021-09-23 10:31] LABS: INR 2.83; PROTHROMBIN TIME 30.1 SECONDS (12.7-14.5)
[2021-09-23] MEDS ORDERED: FUROSEMIDE 40 MG TAB PO ONE (11:00)
--- NOTE | 2021-09-23 15:45 | IPN ---
PROGRESS NOTE DATE: 09/23/2021 CHIEF COMPLAINT: Right foot pain. HISTORY OF PRESENT ILLNESS: I was called by the hospitalist, Dr. Shah, yesterday. I saw patient today at approximately 12:45 p.m. On 09/23/2021. Patient states that he has had 6-12 months of forefoot pain. It seems to be in the mid aspect on the plantar side at the metatarsal head area. No pain in the heel. He states it feels quite firm in this area. PHYSICAL EXAMINATION: This is a well appearing 60-year-old man who appears comfortably sitting upright in bed. He is alert and oriented. He responds appropriately. Examination of the right foot and lower extremity: Calf is soft. Achilles tendon, intact. Strong plantarflexion and dorsiflexion. Range of motion is neutral to approximately 35 degrees of flexion. A bit stiff subtalar range of motion. No pain to palpation at the Achilles tendon nor throughout the rest of the foot. No pain on the plantar aspect; however, there is some plantar callosities, possibly wart there at the mid aspect of metatarsal head, 3rd metatarsal. Plantar aspect: No redness, warmth, drainage. The skin is closed. He has quite dry skin throughout. Normal sensation and motor function throughout the superificial and deep peroneal nerves as well as saphenous, sural, and tibial. Strong dorsalis pedis pulse. No pain throughout the rest of the foot and ankle. Radiographs, lateral x-ray: Small osteophyte along the posterior-superior aspect of the calcaneus. To my own interpretation, this may be chronic calcification. ASSESSMENT AND PLAN: This is a 60-year-old man with right foot pain. Seems to be on the forefoot area with plantar calluses and possible wart in that area. There is no need for acute orthopedic surgical intervention here. Recommend the hospitalist service consult podiatry for further evaluation and management of this non-emergent foot problem. I will not follow the patient while in hospital. JANI
[2021-09-23] MEDS: WARFARIN SOD 5MG TAB PO SCH (17:33)
[2021-09-23 22:00] VITALS: BP 98/57
[2021-09-23] MEDS: ACETAMINOPHEN TAB 650MG DOSE (2X325MG) PO PRN (23:26)
[2021-09-24] MEDS: LEVALBUTEROL 1.25 MG/0.5 ML CONCENTRATE NEB INH PRN ×2 (01:35→06:24)
[2021-09-24 06:41] VITALS: BP 121/79
[2021-09-24] MEDS: METOPROLOL TART 50 MG TAB PO SCH ×2 (06:44→12:36)
[2021-09-24 07:12] LABS: BASO # 0.1 10^3/uL (0.0-0.2); BASO % 0.5 % (0.0-1.0); EOS # 0.2 10^3/uL (0.0-0.5); EOS % 1.9 % (0.0-3.0); HEMATOCRIT 39.6 % (42.0-52.0); HEMOGLOBIN 12.4 g/dl (13.5-17.5); LYMPH # 1.9 10^3/uL (1.5-5.0); LYMPH % 19.1 % (24.0-44.0); MEAN CORPUSCULAR HEMOGLOBIN 27.6 pg (27.0-33.0); MEAN CORPUSCULAR HGB CONC 31.3 g/dl (32.0-36.5); MEAN CORPUSCULAR VOLUME 88.2 fl (80.0-96.0); MONO # 0.8 10^3/uL (0.0-0.8); MONO % 8.6 % (2.0-8.0); NEUTROPHILS # 6.7 10^3/uL (1.5-8.5); NEUTROPHILS % 69.6 % (36.0-66.0); PLATELET COUNT, AUTOMATED 223 10^3/uL (150-450); RED BLOOD COUNT 4.49 10^6/uL (4.30-6.10); WHITE BLOOD COUNT 9.7 10^3/uL (4.0-10.0)
[2021-09-24 07:28] LABS: INR 2.79; PROTHROMBIN TIME 29.8 SECONDS (12.7-14.5)
[2021-09-24 07:29] LABS: BLOOD UREA NITROGEN 10 MG/DL (7-18); CALCIUM LEVEL 8.5 MG/DL (8.5-10.1); CARBON DIOXIDE LEVEL 36 MEQ/L (21-32); CHLORIDE LEVEL 102 MEQ/L (98-107); CREATININE FOR GFR 0.69 MG/DL (0.70-1.30); GLOMERULAR FILTRATION RATE > 60.0 (>56); GLUCOSE, FASTING 106 MG/DL (70-100); MAGNESIUM LEVEL 1.8 MG/DL (1.8-2.4); POTASSIUM SERUM 3.8 MEQ/L (3.5-5.1); SODIUM LEVEL 141 MEQ/L (136-145)
[2021-09-24] MEDS: LEVALBUTEROL 1.25 MG/0.5 ML CONCENTRATE NEB INH SCH ×2 (07:43→11:03)
[2021-09-24] MEDS: ADVAIR HFA 230/21MCG INHALER INH SCH (07:43)
[2021-09-24] MEDS: HumaLOG INSULIN (NovoLOG) PER UNIT SC SCH ×2 (08:17→12:36)
[2021-09-24] MEDS: BENZTROPINE 2 MG TAB PO SCH (08:18)
[2021-09-24] MEDS: TAMSULOSIN 0.4 MG CAP PO SCH (08:18)
[2021-09-24] MEDS: DOCUSATE SODIUM 100MG CAPSULE PO SCH (08:18)
[2021-09-24] MEDS: MULTIVITAMINS/MINERALS THERAP 1 TAB PO SCH (08:19)
[2021-09-24] MEDS: THIAMINE 100 MG TAB PO SCH (08:19)
[2021-09-24] MEDS: ATORVASTATIN 20 MG TAB PO SCH (08:19)
[2021-09-24] MEDS: FOLIC ACID 1 MG TAB PO SCH (08:19)
[2021-09-24] MEDS: VITAMIN D 1,000 INTERNATIONAL UNITS TABLET PO SCH (08:20)
[2021-09-24] MEDS ORDERED: VITMTA PO (08:34)
[2021-09-24] MEDS ORDERED: FLOM0.4C39 PO (08:34)
[2021-09-24] MEDS ORDERED: INSUHUMDS SC (08:34)
[2021-09-24] MEDS ORDERED: THIA100TA PO (08:34)
[2021-09-24] MEDS ORDERED: FOLI1TAB11 PO (08:34)
[2021-09-24] MEDS ORDERED: METO100T5 PO (08:34)
[2021-09-24] MEDS ORDERED: FURO40TA2 PO (08:34)
[2021-09-24] MEDS ORDERED: FUROSEMIDE 40 MG TAB PO SCH (09:00)
[2021-09-24 12:36] VITALS: BP 127/102
--- NOTE | 2021-09-24 14:18 | DS.PDOC ---
Discharge Summary General Date of Admission Sep 13, 2021 at 17:19 Date of Discharge 09/24/2021 Discharge Summary PROCEDURES PERFORMED DURING STAY: [None]. ADMITTING DIAGNOSES / DISCHARGE DIAGNOSES: Acute hypoxic respiratory failure - likely 2/2 multifactorial etiology - likely 2/2 A. fib with RVR and Acute and Chronic Systolic CHF Acute on Chronic Systolic CHF (EF: 40-45%) A. fib with RVR R foot pain - likely 2/2 chronic pain s/p Hyponatremia - likely 2/2 hypotonic hypervolemic etiology - likely 2/2 CHF s/p Urinary tract infection - likely 2/2 MSSA Urinary retention COPD Hx of Alcoholism Nicotine dependence DM2 DLP Hx of TBI Schizophrenia DVT prophylaxis COMPLICATIONS/CHIEF COMPLAINT: SOB HISTORY OF PRESENT ILLNESS: Patient is a 60-year-old male with a PMHx of Hx of TBI, A fib (on Coumadin), Systolic CHF (EF: 40-45%), COPD, Hx of Alcoholism, Nicotine dependence, Schizophrenia who presented to [facility] as a transfer from [facility] on 09/13. Patient had originally presented to [facility] for worsening shortness of breath over the last 5 days. Patient had come in at the insistence of his neighbor. Patient had reported worsening shortness of breath, worse with exertion, associated with a productive cough. Patient reports that he is unable to expectorate much sputum.. He is also reported worsening lower extremity swelling. Patient does wake up several times at night short of breath. He denies sleeping upright. Patient has not experience any fevers or chills. Patient was transferred to [facility] for further evaluation and treatment. Nephrology was called on consultation for severe hyponatremia. Patient was seen and examined at the bedside. Currently patient denies any nausea, vomiting, chest pain, shortness breath, palpitations. Patient has worked with physical therapy and they're recommending additional rehabilitation. Patient was seen by orthopedic surgery and I recommended follow-up with podiatry. HOSPITAL COURSE: Acute hypoxic respiratory failure - likely 2/2 multifactorial etiology - likely 2/2 A. fib with RVR and Acute and Chronic Systolic CHF - See below - Currently patient is on 2 L of nasal cannula oxygen - will continue on discharge Acute on Chronic Systolic CHF (EF: 40-45%) - Physical without any evidence of fluid overload - ECHO noted above - c/w strict ins/outs, daily weights, fluid restriction - s/p Diuresis A. fib with RVR - Patient denies any chest pain or palpitations - Troponin trend negative - INR therapeutic - s/p Telemetry - c/ Metoprolol tartrate; adjusted to BID dosing on discharge - c/w Coumadin R foot pain - likely 2/2 chronic pain - Denies any trauma to his R foot - c/w PT and OT; transition to rehabilitation today - Orthopedic surgery was consulted; will have outpatient follow up with Podiatry s/p Hyponatremia - likely 2/2 hypotonic hypervolemic etiology - likely 2/2 CHF - Sodium has normalized - Nephrology has been consulted; appreciate their input s/p Urinary tract infection - likely 2/2 MSSA - UA noted to be abnormal at [facility] - s/p Leukocytosis - s/p Antibiotic treatment Urinary retention - Patient is failed a voiding trial - Wright catheter was reinserted 09/21 - c/w Tamsulosin - Will have outpatient follow-up with urology COPD - No evidence of exacerbation - c/w inhaled therapy as ordered Hx of Alcoholism - Patient reports he quit drinking a while ago - c/w Thiamine / Folate / MVI Nicotine dependence - Advised smoking cessation DM2 - c/w ISS DLP - c/w Atorvastatin Hx of TBI Schizophrenia DVT prophylaxis - c/w Full anticoagulation with Coumadin DISCHARGE MEDICATIONS: Please see below. ALLERGIES: Please see below. PHYSICAL EXAMINATION ON DISCHARGE: Vitals (See below) General: Lying in bed, appears comfortable, AAOx3 HEENT: NC, AT CVS: +S1S2 Lungs: Fair air entry b/l, no appreciable wheezing, rales or rhonchi Abdomen: Soft, nondistended, nontender Extremities: Trace LE edema, no calf tenderness LABORATORY DATA: Please see below. IMAGING: CXR 09/13: Cannot exclude basilar opacity/atelectasis. CT head 09/15: 1. Mild diffuse parenchymal atrophy. 2. No acute intracranial findings. CXR 09/17: Increasing lower lobe opacities (right greater than left). Foot XR 09/22: Generalized age-related changes are appreciated Lateral view demonstrates a small fractured osteophyte along the posterosuperior aspect of the calcaneus which should be correlated with physical examination. No further acute fracture or dislocation identified. No subcutaneous emphysema or foreign body. ACTIVITY: [As tolerated]. DISCHARGE PLAN: Follow-up with primary care provider, cardiology, urology, nephrology and podiatry within the next 7 days DISPOSITION: [facility]. DISCHARGE CONDITION: [Stable]. TIME SPENT ON DISCHARGE: 35 minutes. Vital Signs/I&Os Vital Signs Date Time Temp Pulse Resp B/P (MAP) Pulse Ox O2 Delivery O2 Flow Rate FiO2 09/24/21 12:36 84 127/102 09/24/21 09:00 2.0 09/24/21 06:41 97.9 20 94 Nasal Cannula I&O- Last 24 Hours up to 6 AM 09/24/21 05:59 Intake Total 1430 ml Output Total 1925 ml Balance -495 ml Laboratory Data Labs 24H Laboratory Tests 2 09/23/21 16:31: Bedside Glucose (Misc Panel) 131H 09/23/21 20:32: Bedside Glucose (Misc Panel) 136H 09/24/21 06:49: Immature Granulocyte % (Auto) 0.3, Neutrophils (%) (Auto) 69.6H, Lymphocytes (%) (Auto) 19.1L, Monocytes (%) (Auto) 8.6H, Eosinophils (%) (Auto) 1.9, Basophils (%) (Auto) 0.5, Neutrophils # (Auto) 6.7, Lymphocytes # (Auto) 1.9, Monocytes # (Auto) 0.8, Eosinophils # (Auto) 0.2, Basophils # (Auto) 0.1, Nucleated Red Blood Cells % (auto) 0.0, Prothrombin Time 29.8H, Prothromb Time International Ratio 2.79, Anion Gap 3L, Glomerular Filtration Rate > 60.0, Calcium Level 8.5, Magnesium Level 1.8 09/24/21 10:27: Coronavirus (COVID-19)(PCR) NEGATIVE 09/24/21 11:19: Bedside Glucose (Misc Panel) 126H CBC/BMP Laboratory Tests 09/24/21 06:49 FSBS Laboratory Tests Test 09/23/21 16:31 09/23/21 20:32 09/24/21 11:19 Range/Units Bedside Glucose (Misc Panel) 131 136 126 70-105 MG/DL Discharge Medications Scheduled Atorvastatin Calcium (Atorvastatin Calcium) 40 Mg Tablet, 40 MG PO DAILY, (Reported) Benztropine Mesylate (Benztropine Mesylate) 2 Mg Tablet, 2 MG PO BID, (Reported) Cholecalciferol (Vitamin D3) (Vitamin D3) 1,000 Unit Tablet, 1,000 UNITS PO DAILY, (Reported) Fluticasone/Umeclidin/Vilanter (Trelegy Ellipta 100-62.5-25) 1 Each Blst.w.dev, 1 PUFF INH DAILY, (Reported) Folic Acid (Folic Acid) 1 Mg Tablet, 1 MG PO DAILY Furosemide (Furosemide) 40 Mg Tablet, 40 MG PO DAILY Glycopyrrolate/Formoterol Fum (Bevespi Aerosphere Inhaler) 10.7 Gm Hfa.aer.ad, 2 PUFF INH BID, (Reported) Insulin Human Lispro (Humalog) 100 Unit/1 Ml Vial, 0 UNITS SC ACHS As per [facility] protocol Ipratropium/Albuterol Sulfate (Combivent Respimat 20-100 Mcg) 4 Gm Mist.inhal, 2 PUFF INH TID, (Reported) Metoprolol Tartrate (Metoprolol Tartrate) 100 Mg Tablet, 1 TAB PO BID Multivitamins (Thera M Plus Tablet) 1 Each Tablet, 1 TAB PO DAILY Paliperidone Palmitate (Invega Sustenna) 156 Mg/1 Ml Syringe, 156 MG IM QMONTH, (Reported) Psyllium Husk (Metamucil) 0.4 Gm Capsule, 0.52 GM PO BID, (Reported) Tamsulosin HCl (Flomax) 0.4 Mg Capsule, 0.4 MG PO DAILY Thiamine Hcl (Vitamin B-1) 100 Mg Tablet, 100 MG PO DAILY Warfarin Sodium (Warfarin Sodium) 5 Mg Tablet, 5 MG PO DAILY, (Reported) Scheduled PRN Albuterol Sulfate (Proair Hfa) 8.5 Gm Hfa.aer.ad, 2 PUFF INH Q4H PRN for SOB/WHEEZING, (Reported) Allergies Coded Allergies: No Known Allergies (Unverified , 09/13/21) VENITA DE LEON MD Sep 24, 2021 14:18
== END 2021-09-24 13:35 | DRG 291 ==
LOC: M PCU 17:19 → M MSPAV 09-18 17:46
PROVIDERS: ADMIT Internal Medicine; ATTEND Internal Medicine
DX: I50.23 Acute on chronic systolic (congestive) heart failure (principal); J96.01 Acute respiratory failure with hypoxia; G93.41 Metabolic encephalopathy; J69.0 Pneumonitis due to inhalation of food and vomit; E87.1 Hypo-osmolality and hyponatremia; N39.0 Urinary tract infection, site not specified; J44.9 Chronic obstructive pulmonary disease, unspecified; I48.91 Unspecified atrial fibrillation; F10.11 Alcohol abuse, in remission; F17.200 Nicotine dependence, unspecified, uncomplicated; F20.9 Schizophrenia, unspecified; D72.829 Elevated white blood cell count, unspecified; Z20.822 Contact with and (suspected) exposure to COVID-19; Z87.820 Personal history of traumatic brain injury; Z90.49 Acquired absence of other specified parts of digestive tract; Z79.01 Long term (current) use of anticoagulants; Z79.899 Other long term (current) drug therapy; E87.5 Hyperkalemia; R74.01 Elevation of levels of liver transaminase levels; M25.774 Osteophyte, right foot; E11.9 Type 2 diabetes mellitus without complications; E78.5 Hyperlipidemia, unspecified; R33.9 Retention of urine, unspecified

== ENCOUNTER 2021-10-16 18:29 | Emergency (ER) | payer MEDICARE, MEDICAID ==
[~2021-10-16] VITALS: Ht 167.6 cm; Wt 79.5 kg
[~2021-10-16 18:29] MED LIST: ATOR40TA75 PO; BENA25CA4 PO; BENZ2TAB5 PO; BEVE1AER INH; COMBAER6 INH; COMMENTS; D31000TA2 PO; DILT1CAP9 PO; FARX1TAB5 PO; FLOM0.4C39 PO; FOLI1TAB11 PO; FURO40TA2 PO; INSUHUMDS SC; INVE156I IM; LASI20TA3 PO; META0.52 PO; METF10004 PO; METO100T5 PO; METO1TAB32 PO; POTA10TA17 PO; PROAAER10 INH; RAMI1CAP21 PO; SITA50TAB PO; THIA100TA PO; TREL1AER INH; VITMTA PO; WARF-23 PO
[2021-10-16 20:18] LABS: HEMATOCRIT 42.6 % (42.0-52.0); HEMOGLOBIN 13.5 g/dl (13.5-17.5); MEAN CORPUSCULAR HEMOGLOBIN 27.2 pg (27.0-33.0); MEAN CORPUSCULAR HGB CONC 31.7 g/dl (32.0-36.5); MEAN CORPUSCULAR VOLUME 85.9 fl (80.0-96.0); PLATELET COUNT, AUTOMATED 308 10^3/uL (150-450); RED BLOOD COUNT 4.96 10^6/uL (4.30-6.10); WHITE BLOOD COUNT 7.3 10^3/uL (4.0-10.0)
[2021-10-16 21:18] LABS: AMPHETAMINES LEVEL URINE NEGATIVE (NEGATIVE); BARBITURATES URINE NEGATIVE (NEGATIVE); BENZODIAZEPINES URINE NEGATIVE (NEGATIVE); CANNABINOIDS URINE NEGATIVE (NEGATIVE); COCAINE METABOLITE URINE NEGATIVE (NEGATIVE); METHADONE URINE NEGATIVE (NEGATIVE); OPIATES URINE NEGATIVE (NEGATIVE); PHENCYCLIDINE URINE NEGATIVE (NEGATIVE)
[2021-10-16 21:25] LABS: ACETAMINOPHEN LEVEL 2.4 UG/ML (10.0-30.0); ALBUMIN 2.8 GM/DL (3.2-5.2); ALT/SGPT 34 U/L (12-78); BILIRUBIN,DIRECT 0.3 MG/DL (0.0-0.2); BILIRUBIN,TOTAL 0.5 MG/DL (0.2-1.0); BLOOD UREA NITROGEN 12 MG/DL (7-18); CARBON DIOXIDE LEVEL 31 MEQ/L (21-32); CHLORIDE LEVEL 100 MEQ/L (98-107); CREATININE FOR GFR 0.86 MG/DL (0.70-1.30); ETHYL ALCOHOL (ETHANOL) < 0.003 % (0.000-0.010); GLOMERULAR FILTRATION RATE > 60.0 (>56); GLUCOSE, FASTING 184 MG/DL (70-100); POTASSIUM SERUM 3.6 MEQ/L (3.5-5.1); SALICYLATE LEVEL < 1.7 MG/DL (5.0-30.0); SODIUM LEVEL 137 MEQ/L (136-145); THYROID STIMULATING HORMONE 0.996 uIU/ML (0.358-3.740); TOTAL PROTEIN 6.6 GM/DL (6.4-8.2)
[2021-10-16] MEDS ORDERED: COMBIVENT RESPIMAT 100-20MCG INHALER 4GM INH SCH ×2 (22:40)
[2021-10-16] MEDS ORDERED: METO100T5 PO (23:41)
[2021-10-16] MEDS ORDERED: THIA100T7 PO (23:41)
[2021-10-16] MEDS ORDERED: THERTAB52 PO (23:41)
[2021-10-16] MEDS ORDERED: MED REC COMMENT (23:41)
[2021-10-16] MEDS ORDERED: FLOM0.4C39 PO (23:41)
[2021-10-16] MEDS ORDERED: FURO40TA2 PO (23:41)
[2021-10-16] MEDS ORDERED: FOLI1TAB11 PO (23:41)
[2021-10-16] MEDS ORDERED: HOME MED LIST COMPLETE! XX SCH (23:45)
[2021-10-17 00:12] VITALS: BP 125/58
== END 2021-10-17 00:21 | disposition home or self-care (01) ==
LOC: M ED 18:29
DX: F20.9 Schizophrenia, unspecified (principal); I10 Essential (primary) hypertension; J44.9 Chronic obstructive pulmonary disease, unspecified; E78.5 Hyperlipidemia, unspecified; I48.91 Unspecified atrial fibrillation; K21.9 Gastro-esophageal reflux disease without esophagitis; Z79.899 Other long term (current) drug therapy; Z79.4 Long term (current) use of insulin; Z79.51 Long term (current) use of inhaled steroids; Z79.01 Long term (current) use of anticoagulants

== ENCOUNTER → 2023-03-02 | Outpatient (CLI) | payer MEDICARE, MEDICAID ==
[~2023-03-02] MED LIST changes: +BENZ2TAB48 PO; -BENZ2TAB5 PO; -D31000TA2 PO; -DILT1CAP9 PO; +DILT360C7 PO; +MED REC COMMENT; +POTA-150 PO; -POTA10TA17 PO; +THERTAB52 PO; +THIA100T7 PO; +VITA100093 PO
== END ==
LOC: M RAD 14:31
PROVIDERS: ATTEND Internal Medicine Critical Care Medicine
DX: J15.8 Pneumonia due to other specified bacteria (principal); I70.0 Atherosclerosis of aorta; I25.10 Atherosclerotic heart disease of native coronary artery without angina pectoris

== ENCOUNTER → 2023-04-05 | Outpatient (CLI) | payer MEDICARE, MEDICAID | LOC: M SLEEP 20:00 | PROVIDERS: ATTEND Internal Medicine Critical Care Medicine | DX: G47.33 Obstructive sleep apnea (adult) (pediatric) (principal) ==

== ENCOUNTER → 2024-08-20 | Outpatient (REF) | payer MEDICARE, MEDICAID ==
[~2024-08-20] MED LIST changes: +RAMI1.258 PO; -RAMI1CAP21 PO
[2024-08-20 09:32] LABS: BASO # 0.1 10^3/uL (0.0-0.2); BASO % 0.6 % (0.0-1.0); EOS # 0.2 10^3/uL (0.0-0.5); HEMATOCRIT 46.5 % (42.0-52.0); HEMOGLOBIN 14.9 g/dl (13.5-17.5); LYMPH % 20.8 % (24.0-44.0); MEAN CORPUSCULAR HEMOGLOBIN 29.2 pg (27.0-33.0); MEAN CORPUSCULAR VOLUME 91.2 fl (80.0-96.0); MONO # 0.8 10^3/uL (0.0-0.8); MONO % 8.1 % (2.0-8.0); NEUTROPHILS # 6.4 10^3/uL (1.5-8.5); PLATELET COUNT, AUTOMATED 282 10^3/uL (150-450); WHITE BLOOD COUNT 9.4 10^3/uL (4.0-10.0)
[2024-08-20 09:58] LABS: ALBUMIN 3.4 G/DL (3.2-5.2); BILIRUBIN,TOTAL 0.6 MG/DL (0.3-1.2); CALCIUM LEVEL 9.8 MG/DL (8.3-10.6); CHOLESTEROL RISK RATIO 4.51 (<5); CREATININE FOR GFR 1.38 MG/DL (0.70-1.30); GLOMERULAR FILTRATION RATE 55.6 (>49); HDL CHOLESTEROL 35.4 MG/DL (>40); LDL CHOLESTEROL 81.6 MG/DL (<100); NON-HDL-C 124.6 MG/DL; POTASSIUM SERUM 4.5 MMOL/L (3.5-5.1); THYROID STIMULATING HORMONE 1.643 uIU/ML (0.55-4.78); TOTAL PROTEIN 7.4 G/DL (5.7-8.2)
[2024-08-20 10:19] LABS: HEMOGLOBIN A1c 7.6 % (4.0-6.0)
[2024-08-22 15:39] LABS: PSA FREE 0.2 ng/mL
== END ==
PROVIDERS: ATTEND Nurse Practitioner Adult Health
DX: Z00.8 Encounter for other general examination (principal); Z79.899 Other long term (current) drug therapy

== ENCOUNTER 2024-09-04 09:18 | Emergency (ER) | payer MEDICARE, MEDICAID ==
[~2024-09-04] VITALS: Ht 172.7 cm; Wt 104.5 kg
[2024-09-04] MEDS ORDERED: ISOVUE-370 76% 100ML VIAL As Ordered ONE (09:43)
[2024-09-04 10:08] LABS: HEMATOCRIT 41.4 % (42.0-52.0); HEMOGLOBIN 13.5 g/dl (13.5-17.5); MEAN CORPUSCULAR HEMOGLOBIN 29.4 pg (27.0-33.0); MEAN CORPUSCULAR HGB CONC 32.6 g/dl (32.0-36.5); MEAN CORPUSCULAR VOLUME 90.2 fl (80.0-96.0); PLATELET COUNT, AUTOMATED 242 10^3/uL (150-450); RED BLOOD COUNT 4.59 10^6/uL (4.30-6.10)
[2024-09-04] MEDS ORDERED: PANT40TA29 PO (12:40)
[2024-09-04] MEDS ORDERED: XARE15TA PO (12:40)
[2024-09-04] MEDS ORDERED: LOPR1TAB6 PO (12:40)
[2024-09-04] MEDS ORDERED: INSU100V6 SQ (12:40)
[2024-09-04] MEDS ORDERED: MILKSUS3 PO (12:40)
[2024-09-04] MEDS ORDERED: TREL1AER PO (12:40)
[2024-09-04] MEDS ORDERED: CITA20TA6 PO (12:40)
[2024-09-04] MEDS ORDERED: ACET1TAB55 PO (12:40)
[2024-09-04] MEDS ORDERED: LANTINJ4 SC (12:40)
[2024-09-04] MEDS ORDERED: FARX1TAB3 PO (12:40)
[2024-09-04] MEDS ORDERED: IPRA0.00 INH (12:40)
[2024-09-04] MEDS ORDERED: SPIR-10 PO (12:40)
[2024-09-04] MEDS ORDERED: TORS20TA2 PO (12:40)
[2024-09-04] MEDS ORDERED: TRUL0.5I SC (12:40)
[2024-09-04] MEDS ORDERED: BUSP10TA PO (12:40)
[2024-09-04] MEDS ORDERED: HOME MED LIST COMPLETE! XX SCH (12:45)
[2024-09-04] MEDS ORDERED: ASPI81TA26 PO (14:36)
[2024-09-04 15:13] VITALS: BP 121/74; TEMP 96.9; O2SAT 95
== END 2024-09-04 15:14 | disposition home or self-care (01) ==
LOC: M ED 09:18
DX: G45.9 Transient cerebral ischemic attack, unspecified (principal); I48.91 Unspecified atrial fibrillation; I50.22 Chronic systolic (congestive) heart failure; E78.5 Hyperlipidemia, unspecified; J44.9 Chronic obstructive pulmonary disease, unspecified; F17.210 Nicotine dependence, cigarettes, uncomplicated; Z79.1 Long term (current) use of non-steroidal anti-inflammatories (NSAID); Z79.51 Long term (current) use of inhaled steroids; Z79.4 Long term (current) use of insulin; Z79.899 Other long term (current) drug therapy
CPT/HCPCS: 36415; 70450; 70496; 70498; 71045; 80047; 84484; 85027; 93005; 93041; 94760; 99285; Q9967

== ENCOUNTER 2024-12-10 07:01 | Emergency (ER) | payer MEDICARE, MEDICAID ==
[~2024-12-10] VITALS: Ht 172.7 cm; Wt 102.2 kg
[~2024-12-10 07:01] MED LIST changes: +ACET1TAB55 PO; +ASPI81TA26 PO; +BUSP10TA PO; +CITA20TA6 PO; +FARX1TAB3 PO; +INSU100V6 SQ; +IPRA0.00 INH; +LANTINJ4 SC; +LOPR1TAB6 PO; +MILKSUS3 PO; +PANT40TA29 PO; +SPIR-10 PO; +TORS20TA2 PO; +TREL1AER PO; +TRUL0.5I SC; +XARE15TA PO
[2024-12-10] MEDS ORDERED: BENZ1TAB5 PO (08:17)
[2024-12-10] MEDS ORDERED: BUSP5TAB PO (08:17)
[2024-12-10] MEDS ORDERED: ALBU8.5H INH (08:17)
[2024-12-10 11:16] VITALS: BP 159/98
[2024-12-10 11:17] VITALS: TEMP 97.2; O2SAT 92
[2024-12-10 11:30] VITALS: O2SAT 93
== END 2024-12-10 11:33 | disposition home or self-care (01) ==
LOC: EDBD 07:01 → M ED 07:01
DX: S80.02XA Contusion of left knee, initial encounter (principal); Y92.9 Unspecified place or not applicable; S06.0X0A Concussion without loss of consciousness, initial encounter; Y93.9 Activity, unspecified; Y99.9 Unspecified external cause status; W01.0XXA Fall on same level from slipping, tripping and stumbling without subsequent striking against object, initial encounter; I48.91 Unspecified atrial fibrillation; I50.22 Chronic systolic (congestive) heart failure; J44.9 Chronic obstructive pulmonary disease, unspecified; F17.210 Nicotine dependence, cigarettes, uncomplicated; F10.10 Alcohol abuse, uncomplicated

== ENCOUNTER → 2024-12-21 | Outpatient (REF) | payer MEDICARE, MEDICAID ==
[~2024-12-21] MED LIST changes: +ALBU8.5H INH; +BENZ1TAB5 PO; +BUSP5TAB PO
[2024-12-21 08:14] LABS: ALBUMIN 3.2 G/DL (3.2-5.2); BILIRUBIN,TOTAL 0.6 MG/DL (0.3-1.2); CALCIUM LEVEL 9.2 MG/DL (8.3-10.6); CHOLESTEROL RISK RATIO 3.93 (<5); CREATININE FOR GFR 1.49 MG/DL (0.70-1.30); GLOMERULAR FILTRATION RATE 50.9 (>49); HDL CHOLESTEROL 33.3 MG/DL (>40); LDL CHOLESTEROL 59.7 MG/DL (<100); NON-HDL-C 97.7 MG/DL; POTASSIUM SERUM 4.6 MMOL/L (3.5-5.1)
[2024-12-21 08:15] LABS: TOTAL 25(OH) VITAMIN D 27.4 NG/ML (20.0-100.0)
[2024-12-21 08:16] LABS: THYROID STIMULATING HORMONE 1.067 uIU/ML (0.55-4.78)
[2024-12-21 08:17] LABS: FREE T4 1.27 NG/DL (0.89-1.76)
[2024-12-21 08:42] LABS: HEMOGLOBIN A1c 7.9 % (4.0-6.0)
== END ==
DX: I10 Essential (primary) hypertension (principal); E11.9 Type 2 diabetes mellitus without complications; F41.9 Anxiety disorder, unspecified; F20.9 Schizophrenia, unspecified; E78.5 Hyperlipidemia, unspecified; Z79.899 Other long term (current) drug therapy

== ENCOUNTER 2025-02-06 15:42 | Observation (INO) | payer MEDICARE, MEDICAID ==
[~2025-02-06] VITALS: Ht 172.7 cm; Wt 102.1 kg
[~2025-02-06 15:42] MED LIST changes: -FLOM0.4C39 PO; +TAMS-18 PO
[2025-02-06 16:11] LABS: BASO # 0.1 10^3/uL (0.0-0.2); BASO % 0.6 % (0.0-1.0); EOS # 0.2 10^3/uL (0.0-0.5); EOS % 1.8 % (0.0-3.0); HEMATOCRIT 43.8 % (42.0-52.0); HEMOGLOBIN 14.3 g/dl (13.5-17.5); LYMPH # 2.5 10^3/uL (1.5-5.0); LYMPH % 23.2 % (24.0-44.0); MEAN CORPUSCULAR HEMOGLOBIN 29.2 pg (27.0-33.0); MEAN CORPUSCULAR HGB CONC 32.6 g/dl (32.0-36.5); MEAN CORPUSCULAR VOLUME 89.6 fl (80.0-96.0); MONO # 1.1 10^3/uL (0.0-0.8); MONO % 9.7 % (2.0-8.0); NEUTROPHILS % 64.2 % (36.0-66.0); PLATELET COUNT, AUTOMATED 256 10^3/uL (150-450); RED BLOOD COUNT 4.89 10^6/uL (4.30-6.10); WHITE BLOOD COUNT 10.9 10^3/uL (4.0-10.0)
[2025-02-06] MEDS ORDERED: ISOVUE-370 76% 100ML VIAL As Ordered ONE (16:17)
[2025-02-06 16:34] LABS: CREATININE FOR GFR 1.42 MG/DL (0.70-1.30); GLOMERULAR FILTRATION RATE 55.5 (>49); POTASSIUM SERUM 4.2 MMOL/L (3.5-5.1)
[2025-02-06] MEDS: METOPROLOL TART 25 MG TABLET PO ONE (17:27)
[2025-02-06] MEDS: METOPROLOL 5 MG/5 ML VIAL IV SCH (17:27)
[2025-02-06 17:55] LABS: MAGNESIUM LEVEL 2.2 MG/DL (1.8-2.4)
[2025-02-06] MEDS: LORazepam 2 MG/ML 1ML VIAL IV STA (19:20)
[2025-02-06] MEDS: ALBUTEROL 90 MCG/ACT 8GM HFA INHALER INH ONE (20:28)
[2025-02-06] MEDS ORDERED: ATOR1TAB21 PO (22:15)
[2025-02-06] MEDS ORDERED: ECOT81TA5 PO (22:15)
[2025-02-06] MEDS ORDERED: med rec comment (22:16)
[2025-02-06] MEDS ORDERED: HOME MED LIST COMPLETE! XX SCH (22:20)
[2025-02-06] MEDS ORDERED: MAALOX 30 ML SUSP *UDC PO PRN (22:55)
[2025-02-06] MEDS ORDERED: MOM 30ML SUSPENSION UDC PO PRN (22:55)
[2025-02-06] MEDS ORDERED: ACETAMINOPHEN 325 MG TAB PO PRN (22:55)
[2025-02-06] MEDS ORDERED: GLUCAGON INJ 1MG VIAL SC PRN (22:55)
[2025-02-06] MEDS ORDERED: GLUCOSE 4 GM CHEW PO PRN (22:55)
[2025-02-06] MEDS ORDERED: DEXTROSE 50% 50ML SYRINGE IV PRN (22:55)
[2025-02-07 00:15] VITALS: BP 137/82; TEMP 97; O2SAT 95
[2025-02-07] MEDS: TAMSULOSIN 0.4 MG CAP PO SCH (01:08)
[2025-02-07] MEDS: DOCUSATE SODIUM 100MG CAPSULE PO SCH (01:09)
[2025-02-07] MEDS: ATORVASTATIN 20 MG TAB PO SCH (01:09)
[2025-02-07] MEDS: RIVAROXABAN 15MG TAB PO SCH (01:09)
[2025-02-07] MEDS: METOPROLOL TART 25 MG TABLET PO SCH ×4 (01:09→21:00)
[2025-02-07] MEDS: busPIRone 5 MG TAB PO SCH (01:11)
[2025-02-07] MEDS: LanTUS (INSULIN GLARGINE INJ) 1 UNITS/0.01 ML SC SCH (01:14)
[2025-02-07 04:52] VITALS: BP 112/66; TEMP 97; O2SAT 94
[2025-02-07 06:12] LABS: HEMATOCRIT 44.9 % (42.0-52.0); HEMOGLOBIN 14.6 g/dl (13.5-17.5); MEAN CORPUSCULAR HEMOGLOBIN 29.3 pg (27.0-33.0); MEAN CORPUSCULAR HGB CONC 32.5 g/dl (32.0-36.5); MEAN CORPUSCULAR VOLUME 90.2 fl (80.0-96.0); PLATELET COUNT, AUTOMATED 272 10^3/uL (150-450); RED BLOOD COUNT 4.98 10^6/uL (4.30-6.10); WHITE BLOOD COUNT 10.5 10^3/uL (4.0-10.0)
[2025-02-07 06:37] LABS: ALBUMIN 3.4 G/DL (3.2-5.2); BILIRUBIN,TOTAL 0.7 MG/DL (0.3-1.2); CALCIUM LEVEL 9.4 MG/DL (8.3-10.6); CREATININE FOR GFR 1.47 MG/DL (0.70-1.30); GLOMERULAR FILTRATION RATE 53.3 (>49); MAGNESIUM LEVEL 2.4 MG/DL (1.8-2.4); POTASSIUM SERUM 3.9 MMOL/L (3.5-5.1)
[2025-02-07] MEDS: ALBUTEROL 90 MCG/ACT 8GM HFA INHALER INH PRN (06:38)
[2025-02-07 06:44] LABS: PROCALCITONIN 0.07 ng/ml
[2025-02-07] MEDS: BENZTROPINE 1 MG TAB PO SCH (08:34)
[2025-02-07] MEDS: CITALOPRAM 20 MG PO SCH (08:34)
[2025-02-07] MEDS: DAPAGLIFLOZIN PROPANEDIOL 10MG TABLET PO SCH (08:34)
[2025-02-07] MEDS: SPIRONOLACTONE 25 MG TAB PO SCH (08:34)
[2025-02-07] MEDS: ASPIRIN 81MG ENTERIC TABLET PO SCH (08:35)
[2025-02-07] MEDS: TORSEMIDE 20 MG TAB PO SCH (08:35)
[2025-02-07] MEDS: INSULIN LISPRO (NovoLOG) PER UNIT SC SCH (08:36)
[2025-02-07] MEDS: IPRATROPIUM 0.5MG/ALBUTEROL 2.5MG INH SOL UD 3ML INH PRN (08:42)
[2025-02-07] MEDS ORDERED: PANTOPRAZOLE 40MG VIAL IV SCH (09:00)
[2025-02-07 12:00] VITALS: BP 127/67; TEMP 97; O2SAT 94
[2025-02-07 17:15] VITALS: BP 120/92
[2025-02-07 20:00] VITALS: BP 106/69; TEMP 97.3; O2SAT 92
[2025-02-07] MEDS ORDERED: METOPROLOL TART 50 MG TAB PO SCH (21:00)
[2025-02-08 03:40] VITALS: BP 119/70; TEMP 96.8; O2SAT 94
[2025-02-08 08:53] VITALS: BP 122/74
[2025-02-08] MEDS ORDERED: METO75TA PO ×2 (10:51→11:08)
== END 2025-02-08 11:55 ==
LOC: M ED 15:42 → EDBD 15:42 → M ED INP 15:43 → M MSPAV 23:48
PROVIDERS: ADMIT Student in an Organized Health Care Education/Training Program; ATTEND Student in an Organized Health Care Education/Training Program
DX: R00.1 Bradycardia, unspecified (principal); I48.91 Unspecified atrial fibrillation; J44.9 Chronic obstructive pulmonary disease, unspecified; E11.9 Type 2 diabetes mellitus without complications; I50.20 Unspecified systolic (congestive) heart failure; F32.A Depression, unspecified; E78.5 Hyperlipidemia, unspecified; R42 Dizziness and giddiness; F20.9 Schizophrenia, unspecified; F10.21 Alcohol dependence, in remission; Z86.73 Personal history of transient ischemic attack (TIA), and cerebral infarction without residual deficits; Z79.899 Other long term (current) drug therapy; Z79.01 Long term (current) use of anticoagulants; Z79.82 Long term (current) use of aspirin; Z79.85 Long-term (current) use of injectable non-insulin antidiabetic drugs; Z79.51 Long term (current) use of inhaled steroids; Z88.8 Allergy status to other drugs, medicaments and biological substances
CPT/HCPCS: 36415; 70450; 70496; 70498; 70551; 71045; 80047; 80048; 80053; 83735; 84145; 84484; 85025; 85027; 87426; 93005; 93041; 93306; 94640; 94760; 96374; 96375; 97116; 97161; 97165; 99285; G0378; J1815; J2060; Q9967

== ENCOUNTER 2025-02-11 10:29 | Emergency (ER) | payer MEDICARE, MEDICAID ==
[~2025-02-11] VITALS: Ht 172.7 cm; Wt 103.8 kg
[~2025-02-11 10:29] MED LIST changes: +ATOR1TAB21 PO; +ECOT81TA5 PO; +METO75TA PO; +med rec comment
[2025-02-11] MEDS ORDERED: IPRATROPIUM 0.5MG/ALBUTEROL 2.5MG INH SOL UD 3ML NEB PRN (10:50)
[2025-02-11] MEDS ORDERED: FLUT1BLS8 INH (11:14)
[2025-02-11] MEDS ORDERED: METO50TA7 PO (11:18)
[2025-02-11] MEDS ORDERED: METO75TA PO (11:19)
[2025-02-11] MEDS ORDERED: HOME MED LIST COMPLETE! XX SCH (11:30)
[2025-02-11] MEDS: methylPREDNISolone 125MG 2ML VIAL IV ONE (11:35)
[2025-02-11] MEDS: ENTER DRUG NAME HERE (PATIENT'S OWN MED) IM SCH (11:45)
[2025-02-11 11:46] LABS: VENOUS BASE EXCESS 1.5 (-2.0-2.0); VENOUS HCO3 28.5 MMOL/L (23.0-27.0); VENOUS O2 SATURATION 66.6 % (60.0-80.0); VENOUS PARTIAL PRESSURE CO2 54.3 mmHg (38.0-50.0); VENOUS PARTIAL PRESSURE O2 35.3 mmHg (30.0-50.0); VENOUS PH 7.338 UNITS (7.330-7.430); VENOUS STANDARD HCO3 24.9 MMOL/L; VENOUS TOTAL CO2 30.2 MMOL/L (24.0-28.0)
[2025-02-11 11:55] LABS: BASO # 0.1 10^3/uL (0.0-0.2); BASO % 0.6 % (0.0-1.0); EOS # 0.2 10^3/uL (0.0-0.5); EOS % 1.6 % (0.0-3.0); HEMATOCRIT 47.1 % (42.0-52.0); LYMPH # 1.6 10^3/uL (1.5-5.0); LYMPH % 14.4 % (24.0-44.0); MEAN CORPUSCULAR HEMOGLOBIN 29.2 pg (27.0-33.0); MEAN CORPUSCULAR HGB CONC 31.8 g/dl (32.0-36.5); MEAN CORPUSCULAR VOLUME 91.8 fl (80.0-96.0); MONO # 0.8 10^3/uL (0.0-0.8); MONO % 7.3 % (2.0-8.0); NEUTROPHILS # 8.1 10^3/uL (1.5-8.5); NEUTROPHILS % 75.5 % (36.0-66.0); PLATELET COUNT, AUTOMATED 287 10^3/uL (150-450); RED BLOOD COUNT 5.13 10^6/uL (4.30-6.10); WHITE BLOOD COUNT 10.8 10^3/uL (4.0-10.0)
[2025-02-11 12:19] LABS: ALBUMIN 3.8 G/DL (3.2-5.2); BILIRUBIN,DIRECT 0.2 MG/DL (<0.4); BILIRUBIN,TOTAL 0.6 MG/DL (0.3-1.2); CALCIUM LEVEL 9.8 MG/DL (8.3-10.6); CREATININE FOR GFR 1.5 MG/DL (0.70-1.30); POTASSIUM SERUM 4.5 MMOL/L (3.5-5.1); THYROID STIMULATING HORMONE 0.893 uIU/ML (0.55-4.78); TOTAL PROTEIN 7.7 G/DL (5.7-8.2)
[2025-02-11] MEDS ORDERED: ISOVUE-370 76% 100ML VIAL As Ordered ONE (14:02)
[2025-02-11 16:34] VITALS: BP 102/60; TEMP 97.1; O2SAT 92
== END 2025-02-11 16:45 | disposition home or self-care (01) ==
LOC: EDBD 10:29 → M ED 10:29
DX: I48.91 Unspecified atrial fibrillation (principal); I50.22 Chronic systolic (congestive) heart failure; E11.9 Type 2 diabetes mellitus without complications; J44.9 Chronic obstructive pulmonary disease, unspecified; E78.5 Hyperlipidemia, unspecified; Z88.8 Allergy status to other drugs, medicaments and biological substances; Z79.1 Long term (current) use of non-steroidal anti-inflammatories (NSAID); Z79.4 Long term (current) use of insulin; Z79.01 Long term (current) use of anticoagulants; Z79.51 Long term (current) use of inhaled steroids; Z79.899 Other long term (current) drug therapy
CPT/HCPCS: 71045; 71275; 80048; 80076; 82803; 83605; 83880; 84443; 85025; 87040; 87486; 87581; 87633; 87798; 93005; 93041; 94760; 96372; 96374; 99285; J2919; Q9967

== ENCOUNTER → 2025-06-03 | Outpatient (REF) | payer MEDICARE, MEDICAID ==
[~2025-06-03] MED LIST changes: +FLUT1BLS8 INH; +METO50TA7 PO
[2025-06-03 11:39] LABS: BASO # 0.1 10^3/uL (0.0-0.2); BASO % 0.7 % (0.0-1.0); EOS # 0.2 10^3/uL (0.0-0.5); EOS % 1.6 % (0.0-3.0); LYMPH # 1.6 10^3/uL (1.5-5.0); LYMPH % 16.1 % (24.0-44.0); MONO # 0.7 10^3/uL (0.0-0.8); MONO % 7.5 % (2.0-8.0); NEUTROPHILS # 7.2 10^3/uL (1.5-8.5); NEUTROPHILS % 73.4 % (36.0-66.0); PLATELET COUNT, AUTOMATED 292 10^3/uL (150-450)
[2025-06-03 12:00] LABS: ESTIMATED AVERAGE GLUCOSE 212.0 MG/DL (60-110)
[2025-06-03 12:11] LABS: ALT/SGPT 23.0 U/L (7.0-40); AST/SGOT 16.0 U/L (<34); CALCIUM LEVEL 9.1 MG/DL (8.3-10.6); CARBON DIOXIDE LEVEL 29.0 MMOL/L (20-31); CHLORIDE LEVEL 95.0 MMOL/L (98-107); CHOLESTEROL LEVEL 118.0 MG/DL (<200); CHOLESTEROL RISK RATIO 3.48 (<5); CREATININE FOR GFR 1.36 MG/DL (0.70-1.30); GLOMERULAR FILTRATION RATE 58.5 (>49); LDL CHOLESTEROL 42.3 MG/DL (<100); NON-HDL-C 84.1 MG/DL; POTASSIUM SERUM 4.0 MMOL/L (3.5-5.1); SODIUM LEVEL 136.0 MMOL/L (136-145); TRIGLYCERIDES LEVEL 209.0 MG/DL (<150)
[2025-06-03 12:13] LABS: THYROXINE (T4) 9.6 UG/DL (4.5-10.9)
== END ==
PROVIDERS: ATTEND Internal Medicine Cardiovascular Disease
DX: I10 Essential (primary) hypertension (principal); E11.9 Type 2 diabetes mellitus without complications; E78.5 Hyperlipidemia, unspecified; F41.9 Anxiety disorder, unspecified; F20.9 Schizophrenia, unspecified; N18.31 Chronic kidney disease, stage 3a

== ENCOUNTER 2025-07-14 10:44 | Inpatient (IN) | payer MEDICARE, MEDICAID ==
[~2025-07-14] VITALS: Ht 172.7 cm; Wt 96.0 kg
[2025-07-14 13:01] LABS: BASO # 0.1 10^3/uL (0.0-0.2); BASO % 0.5 % (0.0-1.0); EOS # 0.1 10^3/uL (0.0-0.5); EOS % 1.1 % (0.0-3.0); LYMPH # 2.1 10^3/uL (1.5-5.0); LYMPH % 17.4 % (24.0-44.0); MONO # 1.0 10^3/uL (0.0-0.8); MONO % 8.6 % (2.0-8.0); NEUTROPHILS # 8.6 10^3/uL (1.5-8.5); NEUTROPHILS % 71.9 % (36.0-66.0); PLATELET COUNT, AUTOMATED 339 10^3/uL (150-450)
[2025-07-14 13:14] LABS: INR 1.61
[2025-07-14] MEDS: METOPROLOL 5 MG/5 ML VIAL IV SCH (13:15)
[2025-07-14 13:33] LABS: ALT/SGPT 29 U/L (7.0-40); AST/SGOT 28 U/L (<34); CALCIUM LEVEL 9.7 MG/DL (8.3-10.6); CARBON DIOXIDE LEVEL 30 MMOL/L (20-31); CHLORIDE LEVEL 93 MMOL/L (98-107); CK-MB VALUE MASS 2.3 NG/ML (<3.6); CREATININE FOR GFR 1.33 MG/DL (0.70-1.30); GLOMERULAR FILTRATION RATE 60.1 (>49); POTASSIUM SERUM 4.3 MMOL/L (3.5-5.1); SODIUM LEVEL 135 MMOL/L (136-145)
[2025-07-14 13:36] LABS: FREE T4 2.56 NG/DL (0.89-1.76)
[2025-07-14 13:37] LABS: CPK CREATINE PHOSPHOKINASE 66 U/L (46-171); MB/CK RELATIVE INDEX 3.48 (< OR =4)
[2025-07-14] MEDS ORDERED: ISOVUE-370 76% 100 ML VIAL As Ordered ONE (14:21)
[2025-07-14 14:39] LABS: CK-MB VALUE MASS 2.8 NG/ML (<3.6)
[2025-07-14 14:41] LABS: CPK CREATINE PHOSPHOKINASE 66.0 U/L (46-171); MB/CK RELATIVE INDEX 4.24 (< OR =4)
[2025-07-14] MEDS: NS 500 ML IV ONE (16:51)
[2025-07-14] MEDS: METOPROLOL 5 MG/5 ML VIAL IV STA ×2 (17:00→17:24)
[2025-07-14] MEDS ORDERED: COMBAER6 INH (18:33)
[2025-07-14] MEDS ORDERED: DULA4.5P SQ (18:33)
[2025-07-14] MEDS ORDERED: HOME MED LIST COMPLETE! XX SCH (18:40)
[2025-07-14] MEDS: MAG SULF 1GM/100ML (MAG RUN) 1 GM in IV 1 EA IV ONE (19:28)
[2025-07-14] MEDS: cefTRIAXone SOD 1 GM in DEXTROSE 5% (D5W) ADV/MINI-BAG 50 ML IV SCH (20:35)
[2025-07-14] MEDS ORDERED: DEXTROSE 50% 50 ML SYRINGE IV PRN (20:35)
[2025-07-14] MEDS ORDERED: GLUCOSE 4 GM CHEW PO PRN (20:35)
[2025-07-14] MEDS ORDERED: GLUCAGON INJ 1 MG VIAL SC PRN (20:35)
[2025-07-14] MEDS ORDERED: ACETAMINOPHEN 325 MG TAB PO PRN (21:00)
[2025-07-14] MEDS ORDERED: MOM 30 ML SUSPENSION UDC PO PRN (21:00)
[2025-07-14] MEDS: ATORVASTATIN 20 MG TAB PO SCH (22:43)
[2025-07-14] MEDS: TAMSULOSIN 0.4 MG CAP PO SCH (22:44)
[2025-07-14] MEDS: busPIRone 5 MG TAB PO SCH (22:44)
[2025-07-14] MEDS: AZITHROMYCIN INJ 500 MG, VIAL MATE ADAPTER 1 EACH in NS 250 ML IV SCH (22:45)
[2025-07-14] MEDS: METOPROLOL TART 50 MG TAB PO SCH (22:47)
[2025-07-14] MEDS: IPRATROPIUM 0.5 MG/ALBUTEROL 2.5 MG INH SOL UD 3 ML NEB PRN (23:09)
[2025-07-15 04:59] VITALS: BP 158/79; TEMP 96.9; O2SAT 98
[2025-07-15 05:54] LABS: PLATELET COUNT, AUTOMATED 313 10^3/uL (150-450)
[2025-07-15 06:27] LABS: ALT/SGPT 22.0 U/L (7.0-40); AST/SGOT 16.0 U/L (<34); CALCIUM LEVEL 9.4 MG/DL (8.3-10.6); CARBON DIOXIDE LEVEL 28.0 MMOL/L (20-31); CHLORIDE LEVEL 96.0 MMOL/L (98-107); CREATININE FOR GFR 1.42 MG/DL (0.70-1.30); GLOMERULAR FILTRATION RATE 55.5 (>49); MAGNESIUM LEVEL 2.3 MG/DL (1.8-2.4); POTASSIUM SERUM 4.1 MMOL/L (3.5-5.1); SODIUM LEVEL 135.0 MMOL/L (136-145)
[2025-07-15 07:25] VITALS: BP 139/70; TEMP 97.6; O2SAT 97
[2025-07-15] MEDS: SYMBICORT 80/4.5MCG INHALER 6GM INH SCH (07:35)
[2025-07-15] MEDS: TORSEMIDE 20 MG TAB PO SCH (09:28)
[2025-07-15] MEDS: PANTOPRAZOLE 40MG TAB PO SCH (09:28)
[2025-07-15] MEDS: INSULIN LISPRO (NovoLOG) PER UNIT SC SCH (09:29)
[2025-07-15] MEDS: DAPAGLIFLOZIN PROPANEDIOL 10 MG TABLET PO SCH (09:30)
[2025-07-15] MEDS: ENOXAPARIN 40 MG/0.4 ML SYRINGE (J1650 PER 10MG) SC SCH (09:30)
[2025-07-15] MEDS: SPIRONOLACTONE 25 MG TAB PO SCH (09:30)
[2025-07-15] MEDS: ASPIRIN 81 MG ENTERIC TABLET PO SCH (09:30)
[2025-07-15] MEDS: BENZTROPINE 1 MG TAB PO SCH (09:30)
[2025-07-15 09:55] LABS: THYROID PEROXIDASE ANTIBODY < 28.0 U/ML (<60.0)
[2025-07-15 10:05] LABS: THYROGLOBULIN ANTIBODY 21.0 U/ML (<60.0)
[2025-07-15] MEDS: METOPROLOL TART 25 MG TABLET PO ONE (10:16)
[2025-07-15] MEDS: LanTUS (INSULIN GLARGINE INJ) 1 UNITS/0.01 ML SC SCH (10:17)
[2025-07-15 11:33] VITALS: BP 135/70; TEMP 97.6; O2SAT 91
[2025-07-15 15:35] VITALS: BP 117/59; TEMP 97.4; O2SAT 97
[2025-07-15] MEDS: NS 500 ML IV ONE (15:58)
[2025-07-15 20:17] VITALS: BP 130/70; TEMP 97.4; O2SAT 97
[2025-07-15] MEDS: AZITHROMYCIN 250 MG TABLET PO SCH (20:59)
[2025-07-15] MEDS: METOPROLOL TART 25 MG TABLET PO SCH (21:01)
[2025-07-16] VITALS (9 sets, daily range): BP systolic 108–122; BP diastolic 58–79; TEMP 97–97.5; O2SAT 92–98
[2025-07-16 06:19] LABS: PLATELET COUNT, AUTOMATED 268 10^3/uL (150-450)
[2025-07-16 06:39] LABS: FREE T4 2.21 NG/DL (0.89-1.76)
[2025-07-16 06:46] LABS: ALT/SGPT 19 U/L (7.0-40); AST/SGOT 13 U/L (<34); CALCIUM LEVEL 9.1 MG/DL (8.3-10.6); CARBON DIOXIDE LEVEL 28 MMOL/L (20-31); CHLORIDE LEVEL 100 MMOL/L (98-107); CREATININE FOR GFR 1.25 MG/DL (0.70-1.30); GLOMERULAR FILTRATION RATE 64.7 (>49); MAGNESIUM LEVEL 2.4 MG/DL (1.8-2.4); POTASSIUM SERUM 4.1 MMOL/L (3.5-5.1); SODIUM LEVEL 140 MMOL/L (136-145)
[2025-07-16] MEDS: TIOTROPIUM BROM 2.5MCG/ACTUATION 4GM INH INH SCH (08:32)
[2025-07-16] MEDS: LEVALBUTEROL HFA 45 MCG/ACT 15 GM INHALER INH PRN (14:29)
[2025-07-16] MEDS ORDERED: RIVAROXABAN 15MG TAB PO SCH (18:00)
[2025-07-16] MEDS: METOPROLOL TART 50 MG TAB PO SCH (18:05)
[2025-07-16] MEDS: RIVAROXABAN 20MG TAB PO SCH (18:08)
[2025-07-17 00:20] VITALS: BP 124/64; TEMP 96.9; O2SAT 97
[2025-07-17 04:21] VITALS: BP 112/72; TEMP 96.9; O2SAT 97
[2025-07-17 05:35] LABS: PLATELET COUNT, AUTOMATED 287 10^3/uL (150-450)
[2025-07-17 05:53] LABS: FREE T4 2.37 NG/DL (0.89-1.76)
[2025-07-17 05:54] LABS: ALT/SGPT 20.0 U/L (7.0-40); AST/SGOT 16.0 U/L (<34); CALCIUM LEVEL 9.5 MG/DL (8.3-10.6); CARBON DIOXIDE LEVEL 30.0 MMOL/L (20-31); CHLORIDE LEVEL 98.0 MMOL/L (98-107); CREATININE FOR GFR 1.28 MG/DL (0.70-1.30); GLOMERULAR FILTRATION RATE 62.9 (>49); MAGNESIUM LEVEL 2.4 MG/DL (1.8-2.4); POTASSIUM SERUM 4.0 MMOL/L (3.5-5.1); SODIUM LEVEL 137.0 MMOL/L (136-145)
[2025-07-17 08:27] VITALS: BP 115/77; TEMP 96.8; O2SAT 96
[2025-07-17 08:31] VITALS: BP 115/59; O2SAT 92
[2025-07-17] MEDS ORDERED: LANTINJ4 SC (10:55)
[2025-07-17] MEDS ORDERED: METH-1387 PO (10:55)
[2025-07-17] MEDS ORDERED: XARE20TA PO (10:55)
[2025-07-17] MEDS ORDERED: METO100T5 PO (10:55)
[2025-07-17] MEDS ORDERED: INSU100V6 SQ (10:55)
[2025-07-17] MEDS ORDERED: CEFD1CAP9 PO (10:55)
[2025-07-17 12:43] VITALS: BP 121/59
[2025-07-17 12:49] VITALS: BP 121/59
[2025-07-17 16:42] LABS: THRYOGLOBULIN ANTIBODIES (ATA) < 1 IU/mL (< or = 1); THYROGLOBULIN QUANTITATIVE 49.4 ng/mL (2.8-40.9)
[2025-07-18 17:27] LABS: THYROID STIMULATING IMMUNOGLOB < 89 % baseline (<140)
== END 2025-07-17 13:02 | DRG 308 ==
LOC: M ED 10:44 → M ED INP 18:19 → M PCU 07-15 05:08
PROVIDERS: ADMIT Student in an Organized Health Care Education/Training Program; ATTEND Internal Medicine
DX: I48.91 Unspecified atrial fibrillation (principal); J18.9 Pneumonia, unspecified organism; I50.32 Chronic diastolic (congestive) heart failure; J44.0 Chronic obstructive pulmonary disease with (acute) lower respiratory infection; C34.01 Malignant neoplasm of right main bronchus; E11.65 Type 2 diabetes mellitus with hyperglycemia; G47.33 Obstructive sleep apnea (adult) (pediatric); F20.9 Schizophrenia, unspecified; R91.8 Other nonspecific abnormal finding of lung field; N40.0 Benign prostatic hyperplasia without lower urinary tract symptoms; K21.9 Gastro-esophageal reflux disease without esophagitis; E78.5 Hyperlipidemia, unspecified; I25.10 Atherosclerotic heart disease of native coronary artery without angina pectoris; E05.90 Thyrotoxicosis, unspecified without thyrotoxic crisis or storm; Z87.891 Personal history of nicotine dependence; Z99.81 Dependence on supplemental oxygen; Z87.820 Personal history of traumatic brain injury; I95.1 Orthostatic hypotension; F32.A Depression, unspecified; Z79.82 Long term (current) use of aspirin; Z79.2 Long term (current) use of antibiotics; Z79.01 Long term (current) use of anticoagulants; Z79.899 Other long term (current) drug therapy; Z88.8 Allergy status to other drugs, medicaments and biological substances; Z79.4 Long term (current) use of insulin

== ENCOUNTER 2025-07-25 09:29 | Emergency (ER) | payer MEDICARE, MEDICAID ==
[~2025-07-25] VITALS: Ht 174 cm; Wt 98.8 kg
[~2025-07-25 09:29] MED LIST changes: +CEFD1CAP9 PO; +DULA4.5P SQ; +METH-1387 PO; +XARE20TA PO
[2025-07-25 10:05] LABS: BASO # 0.0 10^3/uL (0.0-0.2); BASO % 0.4 % (0.0-1.0); EOS # 0.1 10^3/uL (0.0-0.5); EOS % 1.3 % (0.0-3.0); LYMPH # 1.3 10^3/uL (1.5-5.0); LYMPH % 12.9 % (24.0-44.0); MONO # 1.0 10^3/uL (0.0-0.8); MONO % 9.9 % (2.0-8.0); NEUTROPHILS # 7.8 10^3/uL (1.5-8.5); NEUTROPHILS % 75.2 % (36.0-66.0); PLATELET COUNT, AUTOMATED 294 10^3/uL (150-450)
[2025-07-25 10:51] LABS: ALT/SGPT 21 U/L (7.0-40); AST/SGOT 16 U/L (<34); CALCIUM LEVEL 9.0 MG/DL (8.3-10.6); CARBON DIOXIDE LEVEL 23 MMOL/L (20-31); CHLORIDE LEVEL 98 MMOL/L (98-107); CPK CREATINE PHOSPHOKINASE 44 U/L (46-171); CREATININE FOR GFR 1.08 MG/DL (0.70-1.30); GLOMERULAR FILTRATION RATE 77.1 (>49); INR 1.56; POTASSIUM SERUM 4.8 MMOL/L (3.5-5.1); SODIUM LEVEL 132 MMOL/L (136-145)
[2025-07-25 10:56] LABS: CK-MB VALUE MASS 2.1 NG/ML (<3.6); MB/CK RELATIVE INDEX 4.77 (< OR =4)
[2025-07-25] MEDS ORDERED: ISOVUE-370 76% 100 ML VIAL As Ordered ONE (11:13)
[2025-07-25 11:31] LABS: CK-MB VALUE MASS 2.4 NG/ML (<3.6)
[2025-07-25 11:32] LABS: CPK CREATINE PHOSPHOKINASE 45 U/L (46-171); MB/CK RELATIVE INDEX 5.33 (< OR =4)
[2025-07-25] MEDS ORDERED: METH-1387 PO (13:27)
[2025-07-25] MEDS ORDERED: LANTINJ4 SC (13:27)
[2025-07-25] MEDS ORDERED: XARE20TA PO (13:28)
[2025-07-25] MEDS ORDERED: HOME MED LIST COMPLETE! XX SCH (13:35)
[2025-07-25 14:15] VITALS: BP 136/84; TEMP 98.4
[2025-07-25 15:00] VITALS: O2SAT 96
== END 2025-07-25 16:21 | disposition home or self-care (01) ==
LOC: EDBD 09:29 → M ED 09:29
DX: R07.89 Other chest pain (principal); I48.91 Unspecified atrial fibrillation; R91.8 Other nonspecific abnormal finding of lung field; I50.22 Chronic systolic (congestive) heart failure; E11.9 Type 2 diabetes mellitus without complications; J44.9 Chronic obstructive pulmonary disease, unspecified; G47.33 Obstructive sleep apnea (adult) (pediatric); F20.9 Schizophrenia, unspecified; Z87.891 Personal history of nicotine dependence; Z87.820 Personal history of traumatic brain injury; Z88.8 Allergy status to other drugs, medicaments and biological substances; Z79.1 Long term (current) use of non-steroidal anti-inflammatories (NSAID); Z79.51 Long term (current) use of inhaled steroids; Z79.4 Long term (current) use of insulin; Z79.899 Other long term (current) drug therapy
CPT/HCPCS: 36415; 71045; 71275; 80048; 80076; 82550; 82553; 83690; 84145; 84484; 85025; 85610; 85730; 93005; 93041; 94760; 99285; Q9967

== ENCOUNTER 2025-08-18 13:43 | Emergency (ER) | payer MEDICARE, MEDICAID ==
[2025-08-18] MEDS ORDERED: VENTAER INH (14:26)
[2025-08-18] MEDS ORDERED: HOME MED LIST COMPLETE! XX SCH (14:30)
[2025-08-18 14:43] LABS: BASO # 0.0 10^3/uL (0.0-0.2); BASO % 0.4 % (0.0-1.0); EOS # 0.2 10^3/uL (0.0-0.5); EOS % 2.1 % (0.0-3.0); LYMPH # 1.7 10^3/uL (1.5-5.0); LYMPH % 16.2 % (24.0-44.0); MONO # 0.8 10^3/uL (0.0-0.8); MONO % 7.7 % (2.0-8.0); NEUTROPHILS # 7.6 10^3/uL (1.5-8.5); NEUTROPHILS % 73.2 % (36.0-66.0); PLATELET COUNT, AUTOMATED 333 10^3/uL (150-450)
[2025-08-18] MEDS: NS (Normal Saline) 0.9% 1,000 ML IV ONE (14:51)
[2025-08-18 15:04] LABS: INR 1.37
[2025-08-18 15:07] LABS: C REACTIVE PROTEIN QUANTITATIV 4.27 MG/DL (<1.0)
[2025-08-18 15:08] LABS: ALT/SGPT 26 U/L (7.0-40); AST/SGOT 17 U/L (<34); CALCIUM LEVEL 9.2 MG/DL (8.3-10.6); CARBON DIOXIDE LEVEL 26 MMOL/L (20-31); CHLORIDE LEVEL 104 MMOL/L (98-107); CREATININE FOR GFR 1.03 MG/DL (0.70-1.30); GLOMERULAR FILTRATION RATE 81.6 (>49); MAGNESIUM LEVEL 2.0 MG/DL (1.8-2.4); POTASSIUM SERUM 4.5 MMOL/L (3.5-5.1); SODIUM LEVEL 141 MMOL/L (136-145)
[2025-08-18] MEDS ORDERED: ISOVUE-370 76% 100 ML VIAL As Ordered ONE (15:34)
[2025-08-18 15:52] LABS: FREE T4 2.10 NG/DL (0.89-1.76)
[2025-08-18 17:55] VITALS: BP 135/83; TEMP 97.1; O2SAT 98
== END 2025-08-18 18:33 | disposition home or self-care (01) ==
LOC: EDBD 13:43 → M ED 13:43
DX: I95.1 Orthostatic hypotension (principal); R42 Dizziness and giddiness; R22.0 Localized swelling, mass and lump, head; I48.91 Unspecified atrial fibrillation; J44.9 Chronic obstructive pulmonary disease, unspecified; I10 Essential (primary) hypertension; Z88.8 Allergy status to other drugs, medicaments and biological substances; Z79.1 Long term (current) use of non-steroidal anti-inflammatories (NSAID); Z79.51 Long term (current) use of inhaled steroids; Z79.4 Long term (current) use of insulin; Z79.899 Other long term (current) drug therapy; Z79.01 Long term (current) use of anticoagulants
CPT/HCPCS: 70450; 70491; 80053; 83605; 83735; 84439; 84443; 85025; 85610; 85652; 85730; 86140; 96360; 99285; Q9967

== ENCOUNTER 2025-08-20 10:10 | Emergency (ER) | payer MEDICARE, MEDICAID ==
[~2025-08-20] VITALS: Ht 172.7 cm; Wt 95.8 kg
[~2025-08-20 10:10] MED LIST changes: +VENTAER INH
[2025-08-20 11:33] LABS: BASO # 0.0 10^3/uL (0.0-0.2); BASO % 0.3 % (0.0-1.0); EOS # 0.1 10^3/uL (0.0-0.5); EOS % 0.8 % (0.0-3.0); LYMPH # 1.4 10^3/uL (1.5-5.0); LYMPH % 12.1 % (24.0-44.0); MONO # 1.1 10^3/uL (0.0-0.8); MONO % 9.2 % (2.0-8.0); NEUTROPHILS # 9.1 10^3/uL (1.5-8.5); NEUTROPHILS % 77.1 % (36.0-66.0); PLATELET COUNT, AUTOMATED 333 10^3/uL (150-450)
[2025-08-20] MEDS ORDERED: HOME MED LIST COMPLETE! XX SCH (12:55)
[2025-08-20] MEDS ORDERED: MECL-86 PO (13:18)
[2025-08-20] MEDS ORDERED: TRAM50TA2 PO (13:18)
[2025-08-20 13:25] VITALS: BP 143/64; TEMP 96.8; O2SAT 96
== END 2025-08-20 14:07 | disposition home or self-care (01) ==
LOC: EDSEX 10:10 → M ED 10:10 → EDBD 10:10 → M ED 14:07
DX: H81.4 Vertigo of central origin (principal); S23.3XXA Sprain of ligaments of thoracic spine, initial encounter; Y92.9 Unspecified place or not applicable; Y93.9 Activity, unspecified; Y99.9 Unspecified external cause status; W01.0XXA Fall on same level from slipping, tripping and stumbling without subsequent striking against object, initial encounter; I48.91 Unspecified atrial fibrillation; I10 Essential (primary) hypertension; E78.5 Hyperlipidemia, unspecified; J44.9 Chronic obstructive pulmonary disease, unspecified; Z87.820 Personal history of traumatic brain injury; Z87.891 Personal history of nicotine dependence; Z88.8 Allergy status to other drugs, medicaments and biological substances

== ENCOUNTER → 2025-08-26 | Outpatient (REF) | payer MEDICARE, MEDICAID ==
[~2025-08-26] MED LIST changes: +INVE156I; +MECL-86 PO; +TAMS1CAP17 PO; +TRAM50TA2 PO
[2025-08-26 12:49] LABS: BASO # 0.0 10^3/uL (0.0-0.2); BASO % 0.4 % (0.0-1.0); EOS # 0.2 10^3/uL (0.0-0.5); EOS % 1.7 % (0.0-3.0); LYMPH # 1.3 10^3/uL (1.5-5.0); LYMPH % 12.3 % (24.0-44.0); MONO # 1.0 10^3/uL (0.0-0.8); MONO % 9.2 % (2.0-8.0); NEUTROPHILS # 8.3 10^3/uL (1.5-8.5); NEUTROPHILS % 76.1 % (36.0-66.0); PLATELET COUNT, AUTOMATED 370 10^3/uL (150-450)
[2025-08-26 13:01] LABS: ESTIMATED AVERAGE GLUCOSE 151.0 MG/DL (60-110)
[2025-08-26 13:29] LABS: ALT/SGPT 21.0 U/L (7.0-40); AST/SGOT 16.0 U/L (<34); CALCIUM LEVEL 8.7 MG/DL (8.3-10.6); CARBON DIOXIDE LEVEL 27.0 MMOL/L (20-31); CHLORIDE LEVEL 99.0 MMOL/L (98-107); CHOLESTEROL LEVEL 99.0 MG/DL (<200); CHOLESTEROL RISK RATIO 3.02 (<5); CREATININE FOR GFR 1.09 MG/DL (0.70-1.30); GLOMERULAR FILTRATION RATE 76.3 (>49); LDL CHOLESTEROL 44.5 MG/DL (<100); NON-HDL-C 66.3 MG/DL; POTASSIUM SERUM 5.1 MMOL/L (3.5-5.1); SODIUM LEVEL 136.0 MMOL/L (136-145); TRIGLYCERIDES LEVEL 109.0 MG/DL (<150)
[2025-08-26 14:04] LABS: THYROXINE (T4) 11.0 UG/DL (4.5-10.9)
[2025-08-30 16:24] LABS: 25-HYDROXY VITAMIN D2 < 8 pg/mL; 25-HYDROXY VITAMIN D3 16 pg/mL; VITAMIN D 1 25 DIHYDROXY 16 pg/mL (18-72)
== END ==
DX: I10 Essential (primary) hypertension (principal); E11.9 Type 2 diabetes mellitus without complications; E78.5 Hyperlipidemia, unspecified; F41.9 Anxiety disorder, unspecified; F20.9 Schizophrenia, unspecified; N18.31 Chronic kidney disease, stage 3a

== ENCOUNTER → 2025-08-28 | Outpatient (REF) | payer MEDICARE, MEDICAID ==
[2025-08-28 14:15] LABS: PLATELET COUNT, AUTOMATED 378 10^3/uL (150-450)
[2025-08-28 14:40] LABS: INR 1.48
== END ==
PROVIDERS: ATTEND Internal Medicine Pulmonary Disease
DX: R91.8 Other nonspecific abnormal finding of lung field (principal); Z79.01 Long term (current) use of anticoagulants

== ENCOUNTER 2025-09-03 07:48 | Emergency (ER) | payer MEDICARE, MEDICAID ==
[~2025-09-03] VITALS: Ht 174 cm; Wt 95.5 kg
[2025-09-03] MEDS ORDERED: HOME MED LIST COMPLETE! XX SCH (09:10)
[2025-09-03 09:55] VITALS: BP 134/62; TEMP 97.4; O2SAT 95
== END 2025-09-03 10:39 | disposition home or self-care (01) ==
LOC: EDBD 07:48 → M ED 07:48
DX: S00.03XA Contusion of scalp, initial encounter (principal); R29.6 Repeated falls; Y92.019 Unspecified place in single-family (private) house as the place of occurrence of the external cause; Y93.9 Activity, unspecified; Y99.9 Unspecified external cause status; W01.0XXA Fall on same level from slipping, tripping and stumbling without subsequent striking against object, initial encounter; E11.9 Type 2 diabetes mellitus without complications; J44.9 Chronic obstructive pulmonary disease, unspecified; I48.91 Unspecified atrial fibrillation; F20.9 Schizophrenia, unspecified; Z87.820 Personal history of traumatic brain injury; Z88.8 Allergy status to other drugs, medicaments and biological substances; Z79.1 Long term (current) use of non-steroidal anti-inflammatories (NSAID); Z79.51 Long term (current) use of inhaled steroids; Z79.4 Long term (current) use of insulin; Z79.899 Other long term (current) drug therapy; Z79.01 Long term (current) use of anticoagulants

== ENCOUNTER 2025-09-11 07:21 | Day surgery (SDC) | payer MEDICARE, MEDICAID ==
[~2025-09-11] VITALS: Ht 172.7 cm; Wt 91.4 kg
[2025-09-11] MEDS: EPINEPHrine 1 MG/10 ML SYRINGE 1.5IN As Ordered ONE (08:02)
[2025-09-11] MEDS: THROMBIN 5,000 UNITS VIAL As Ordered ONE (08:02)
[2025-09-11] MEDS ORDERED: GLUCAGON INJ 1 MG VIAL SC PRN (08:30)
[2025-09-11] MEDS ORDERED: DEXTROSE 50% 50 ML SYRINGE IV PRN (08:30)
[2025-09-11] MEDS: LR 1,000 ML IV SCH (08:30)
[2025-09-11] MEDS ORDERED: GLUCOSE 4 GM CHEW PO PRN (08:30)
[2025-09-11] MEDS: INSULIN LISPRO (NovoLOG) PER UNIT SC PRN (08:51)
[2025-09-11] MEDS: LEVALBUTEROL 1.25 MG 0.5ML CONCENTRATE NEB NEB ONE (09:07)
[2025-09-11] MEDS ORDERED: MIDAZOLAM INJ 2 MG/2 ML VIAL As Ordered ONE (09:34)
[2025-09-11] MEDS ORDERED: ROCURONIUM BROMIDE 50MG/5ML VIAL As Ordered ONE (09:40)
[2025-09-11] MEDS ORDERED: ESMOLOL 100 MG/10 ML VIAL As Ordered ONE (10:21)
[2025-09-11] MEDS ORDERED: METOPROLOL 5 MG/5 ML VIAL As Ordered ONE (10:23)
[2025-09-11] MEDS: CETACAINE SPRAY 5 GM As Ordered ONE (10:26)
[2025-09-11] MEDS ORDERED: ONDANSETRON 4MG/2ML VIAL As Ordered ONE (10:39)
[2025-09-11] MEDS ORDERED: SUGAMMADEX SODIUM 200 MG/2 ML VIAL As Ordered ONE (10:43)
[2025-09-11] MEDS ORDERED: ONDANSETRON 4MG/2ML VIAL IV PRN (10:55)
[2025-09-11] MEDS: METOPROLOL 5 MG/5 ML VIAL IV STA (11:29)
[2025-09-11 12:10] VITALS: BP 120/70
[2025-09-11] MEDS: METOPROLOL TART 50 MG TAB PO ONE (12:10)
[2025-09-11 13:30] VITALS: BP 133/76; TEMP 97.4; O2SAT 97
== END 2025-09-11 13:30 | disposition home or self-care (01) ==
LOC: M SDC 07:21
PROVIDERS: ATTEND Internal Medicine Pulmonary Disease
DX: C34.11 Malignant neoplasm of upper lobe, right bronchus or lung (principal); C77.1 Secondary and unspecified malignant neoplasm of intrathoracic lymph nodes; L04.2 Acute lymphadenitis of upper limb; R00.0 Tachycardia, unspecified; I48.91 Unspecified atrial fibrillation; E11.9 Type 2 diabetes mellitus without complications; Z88.8 Allergy status to other drugs, medicaments and biological substances; Z79.899 Other long term (current) drug therapy; Z99.81 Dependence on supplemental oxygen
CPT/HCPCS: 31625; 31653; 71045; 88173; 88305; J0616; J1805; J1815; J2250; J2405; J3010